=== PATIENT | female | born 1940 | race Caucasian/White ===

== ENCOUNTER → 2016-04-29 | Outpatient (REF) | payer MEDICARE ==
[2016-04-29 18:03] LABS: ALBUMIN 3.6 GM/DL (3.2-5.2); ALBUMIN/GLOBULIN RATIO 1.03 (1.00-1.93); ALKALINE PHOSPHATASE 93 U/L (45-117); ALT/SGPT 28 U/L (12-78); ANION GAP 7 MEQ/L (8-16); AST/SGOT 18 U/L (15-37); BILIRUBIN,TOTAL 0.4 MG/DL (0.2-1.0); BLOOD UREA NITROGEN 16 MG/DL (7-18); CALCIUM LEVEL 8.7 MG/DL (8.8-10.2); CARBON DIOXIDE LEVEL 27 MEQ/L (21-32); CHLORIDE LEVEL 106 MEQ/L (98-107); GLOMERULAR FILTRATION RATE > 60.0 (>39); GLUCOSE, FASTING 105 MG/DL (83-110); POTASSIUM SERUM 4.5 MEQ/L (3.5-5.1); SODIUM LEVEL 140 MEQ/L (136-145); TOTAL PROTEIN 7.1 GM/DL (6.4-8.2)
== END ==
LOC: M SFHCPLAZ 14:44
PROVIDERS: ATTEND Nurse Practitioner Family
DX: R60.0 Localized edema (principal); E55.9 Vitamin D deficiency, unspecified

== ENCOUNTER → 2016-10-13 | Outpatient (REF) | payer MEDICARE ==
[2016-10-13 16:35] LABS: ALBUMIN 3.5 GM/DL (3.2-5.2); ALBUMIN/GLOBULIN RATIO 0.92 (1.00-1.93); ALKALINE PHOSPHATASE 84 U/L (45-117); ALT/SGPT 29 U/L (12-78); ANION GAP 8 MEQ/L (8-16); AST/SGOT 18 U/L (15-37); BILIRUBIN,TOTAL 0.5 MG/DL (0.2-1.0); BLOOD UREA NITROGEN 14 MG/DL (7-18); CALCIUM LEVEL 8.9 MG/DL (8.8-10.2); CARBON DIOXIDE LEVEL 27 MEQ/L (21-32); CHLORIDE LEVEL 106 MEQ/L (98-107); CHOLESTEROL LEVEL 242 MG/DL (<200); CREATININE FOR GFR 0.88 MG/DL (0.55-1.02); GLOMERULAR FILTRATION RATE > 60.0 (>39); GLUCOSE, FASTING 88 MG/DL (83-110); POTASSIUM SERUM 4.4 MEQ/L (3.5-5.1); SODIUM LEVEL 141 MEQ/L (136-145); TOTAL PROTEIN 7.3 GM/DL (6.4-8.2); TRIGLYCERIDES LEVEL 278 MG/DL (<150)
== END ==
LOC: M SFHCPLAZ 12:55
PROVIDERS: ATTEND Nurse Practitioner Family
DX: E78.5 Hyperlipidemia, unspecified (principal); E55.9 Vitamin D deficiency, unspecified

== ENCOUNTER → 2017-05-05 | Outpatient (REF) | payer MEDICARE ==
[2017-05-05 16:03] LABS: ALBUMIN 3.7 GM/DL (3.2-5.2); ALKALINE PHOSPHATASE 85 U/L (45-117); ALT/SGPT 28 U/L (12-78); ANION GAP 6 MEQ/L (8-16); AST/SGOT 20 U/L (7-37); BILIRUBIN,TOTAL 0.5 MG/DL (0.2-1.0); BLOOD UREA NITROGEN 16 MG/DL (7-18); CALCIUM LEVEL 8.8 MG/DL (8.8-10.2); CARBON DIOXIDE LEVEL 28 MEQ/L (21-32); CHLORIDE LEVEL 108 MEQ/L (98-107); CHOLESTEROL LEVEL 249 MG/DL (<200); CHOLESTEROL RISK RATIO 5.659 (<5); CREATININE FOR GFR 0.92 MG/DL (0.55-1.30); GLOMERULAR FILTRATION RATE > 60.0 (>39); GLUCOSE, FASTING 92 MG/DL (70-100); HDL CHOLESTEROL 44 MG/DL (>40); LDL CHOLESTEROL 151.4 MG/DL (<100); NON-HDL-C 205 MG/DL; POTASSIUM SERUM 4.4 MEQ/L (3.5-5.1); SODIUM LEVEL 142 MEQ/L (136-145); TOTAL PROTEIN 7.4 GM/DL (6.4-8.2); TRIGLYCERIDES LEVEL 268 MG/DL (<150)
[2017-05-05 16:08] LABS: TOTAL 25(OH) VITAMIN D 40.4 NG/ML (30.0-100.0)
== END ==
LOC: M SFHCPLAZ 12:59
DX: E78.5 Hyperlipidemia, unspecified (principal); E55.9 Vitamin D deficiency, unspecified
CPT/HCPCS: 80053

== ENCOUNTER → 2018-05-09 | Outpatient (REF) | payer MEDICARE ==
[2018-05-09 17:48] LABS: ALBUMIN 3.8 GM/DL (3.2-5.2); ALT/SGPT 29 U/L (12-78); BILIRUBIN,TOTAL 0.6 MG/DL (0.2-1.0); BLOOD UREA NITROGEN 16 MG/DL (7-18); CALCIUM LEVEL 8.7 MG/DL (8.8-10.2); CARBON DIOXIDE LEVEL 27 MEQ/L (21-32); CHLORIDE LEVEL 106 MEQ/L (98-107); CHOLESTEROL LEVEL 244 MG/DL (<200); CHOLESTEROL RISK RATIO 5.304 (<5); CREATININE FOR GFR 0.93 MG/DL (0.55-1.30); FREE T4 0.86 NG/DL (0.76-1.46); GLOMERULAR FILTRATION RATE > 60.0 (>39); GLUCOSE, FASTING 84 MG/DL (70-100); HDL CHOLESTEROL 46 MG/DL (>40); LDL CHOLESTEROL 142 MG/DL (<100); NON-HDL-C 198 MG/DL; POTASSIUM SERUM 4.4 MEQ/L (3.5-5.1); SODIUM LEVEL 139 MEQ/L (136-145); TOTAL PROTEIN 7.3 GM/DL (6.4-8.2); TRIGLYCERIDES LEVEL 282 MG/DL (<150)
[2018-05-09 17:51] LABS: TOTAL 25(OH) VITAMIN D 34.5 NG/ML (30.0-100.0)
== END ==
LOC: M SFHCPLAZ 14:24
PROVIDERS: ATTEND Nurse Practitioner Family
DX: G83.89 Other specified paralytic syndromes (principal); F41.9 Anxiety disorder, unspecified; E78.5 Hyperlipidemia, unspecified; E55.9 Vitamin D deficiency, unspecified

== ENCOUNTER → 2019-07-19 | Outpatient (REF) | payer MEDICARE ==
[2019-07-19 18:17] LABS: ALBUMIN 3.4 GM/DL (3.2-5.2); ALT/SGPT 31 U/L (12-78); BILIRUBIN,TOTAL 0.5 MG/DL (0.2-1.0); BLOOD UREA NITROGEN 19 MG/DL (7-18); CALCIUM LEVEL 8.6 MG/DL (8.8-10.2); CARBON DIOXIDE LEVEL 29 MEQ/L (21-32); CHLORIDE LEVEL 104 MEQ/L (98-107); CHOLESTEROL LEVEL 184 MG/DL (<200); CREATININE FOR GFR 0.83 MG/DL (0.55-1.30); GLOMERULAR FILTRATION RATE > 60.0 (>39); GLUCOSE, FASTING 73 MG/DL (70-100); HDL CHOLESTEROL 42 MG/DL (>40); LDL CHOLESTEROL 101 MG/DL (<100); NON-HDL-C 142 MG/DL; NT-PRO BNP 56 PG/ML (<450); POTASSIUM SERUM 4.3 MEQ/L (3.5-5.1); SODIUM LEVEL 140 MEQ/L (136-145); TOTAL PROTEIN 7.2 GM/DL (6.4-8.2); TRIGLYCERIDES LEVEL 206 MG/DL (<150)
[2019-07-19 18:25] LABS: TOTAL 25(OH) VITAMIN D 44.6 NG/ML (30.0-100.0)
== END ==
LOC: M SHH 17:10
PROVIDERS: ATTEND Nurse Practitioner Family
DX: E55.9 Vitamin D deficiency, unspecified (principal); E78.5 Hyperlipidemia, unspecified; R06.02 Shortness of breath

== ENCOUNTER → 2019-09-19 | Outpatient (REF) | payer MEDICARE ==
[2019-11-18 06:53] LABS: CALCIUM LEVEL 8.7 MG/DL (8.8-10.2); CREATININE FOR GFR 0.96 MG/DL (0.55-1.30); MAGNESIUM LEVEL 2.2 MG/DL (1.8-2.4); POTASSIUM SERUM 3.8 MEQ/L (3.5-5.1)
== END ==
LOC: M SHH 16:18
PROVIDERS: ATTEND Nurse Practitioner Family
DX: R60.0 Localized edema (principal)

== ENCOUNTER → 2020-01-18 | Outpatient (REF) | payer MEDICARE ==
[2020-01-18 18:30] LABS: HEMOGLOBIN A1c 5.5 %
[2020-01-18 18:45] LABS: ALBUMIN 3.7 GM/DL (3.2-5.2); ALT/SGPT 25 U/L (12-78); BILIRUBIN,TOTAL 0.6 MG/DL (0.2-1.0); BLOOD UREA NITROGEN 15 MG/DL (7-18); CALCIUM LEVEL 9.7 MG/DL (8.8-10.2); CARBON DIOXIDE LEVEL 29 MEQ/L (21-32); CHLORIDE LEVEL 106 MEQ/L (98-107); FREE T4 0.86 NG/DL (0.76-1.46); GLOMERULAR FILTRATION RATE > 60.0 (>39); GLUCOSE, FASTING 101 MG/DL (70-100); MAGNESIUM LEVEL 2.4 MG/DL (1.8-2.4); POTASSIUM SERUM 4.4 MEQ/L (3.5-5.1); SODIUM LEVEL 139 MEQ/L (136-145); TOTAL PROTEIN 7.7 GM/DL (6.4-8.2)
== END ==
LOC: M PLALAB 14:45
PROVIDERS: ATTEND Nurse Practitioner Family
DX: R60.0 Localized edema (principal); R73.09 Other abnormal glucose; K21.00 Gastro-esophageal reflux disease with esophagitis, without bleeding

== ENCOUNTER → 2020-04-04 | Outpatient (REF) | payer MEDICARE ==
[2020-04-04 16:46] LABS: HEMATOCRIT 43.7 % (36.0-47.0); HEMOGLOBIN 13.8 g/dl (12.0-15.5); MEAN CORPUSCULAR HEMOGLOBIN 30.3 pg (27.0-33.0); MEAN CORPUSCULAR HGB CONC 31.6 g/dl (32.0-36.5); PLATELET COUNT, AUTOMATED 181 10^3/uL (150-450); RED BLOOD COUNT 4.55 10^6/uL (4.00-5.40); WHITE BLOOD COUNT 5.9 10^3/uL (4.0-10.0)
[2020-04-04 17:14] LABS: ALBUMIN 3.6 GM/DL (3.2-5.2); ALT/SGPT 21 U/L (12-78); BILIRUBIN,TOTAL 0.6 MG/DL (0.2-1.0); BLOOD UREA NITROGEN 17 MG/DL (7-18); CALCIUM LEVEL 9.3 MG/DL (8.8-10.2); CARBON DIOXIDE LEVEL 29 MEQ/L (21-32); CHLORIDE LEVEL 104 MEQ/L (98-107); CHOLESTEROL LEVEL 226 MG/DL (<200); CHOLESTEROL RISK RATIO 4.913 (<5); CREATININE FOR GFR 0.81 MG/DL (0.55-1.30); FREE T4 0.87 NG/DL (0.76-1.46); GLOMERULAR FILTRATION RATE > 60.0 (>39); GLUCOSE, FASTING 95 MG/DL (70-100); HDL CHOLESTEROL 46 MG/DL (>40); LDL CHOLESTEROL 126 MG/DL (<100); NON-HDL-C 180 MG/DL; POTASSIUM SERUM 4.2 MEQ/L (3.5-5.1); SODIUM LEVEL 137 MEQ/L (136-145); TOTAL PROTEIN 7.4 GM/DL (6.4-8.2); TRIGLYCERIDES LEVEL 271 MG/DL (<150)
[2020-04-04 17:15] LABS: TOTAL 25(OH) VITAMIN D 33.6 NG/ML (30.0-100.0)
== END ==
LOC: M SFHCADAM 14:31
PROVIDERS: ATTEND Family Medicine
DX: L89.310 Pressure ulcer of right buttock, unstageable (principal); K22.70 Barrett's esophagus without dysplasia; E78.5 Hyperlipidemia, unspecified; E55.9 Vitamin D deficiency, unspecified

== ENCOUNTER 2021-01-02 13:10 | Outpatient (CLI) | payer MEDICARE ==
[~2021-01-02] VITALS: Ht 170.2 cm; Wt 104.3 kg
[~2021-01-02 13:10] MED LIST: ALBUTEROL 90 MCG/ACT 8GM HFA INHALER INH PRN; ALBUTEROL SULFATE 2.5 MG/0.5 ML INH NEB SOLN INH PRN; EPINEPHrine INJ 1 MG/ML 1ML AMP IM PRN; NS 1,000 ML IV SCH; diphenhydrAMINE 50MG/ML VIAL (J1200) IV PRN; methylPREDNISolone 125MG 2ML VIAL IV PRN
[2021-01-02] MEDS ORDERED: CASIRIVIMAB (REGN10933) 600 MG, IMDEVIMAB (REGN10987) 600 MG in NS 250 ML IV ONE (14:00)
[2021-01-02 14:25] VITALS: BP 115/64
[2021-01-02 14:55] VITALS: BP 132/70
[2021-01-02 15:25] VITALS: BP 129/70
[2021-01-02 16:25] VITALS: BP 148/75
[2021-01-08] MEDS ORDERED: OMEP-173 PO (12:24)
[2021-01-27] MEDS ORDERED: OMEP-173 PO (11:29)
== END 2021-01-02 16:25 | disposition home or self-care (01) ==
LOC: M OPCLI4PR 13:10
PROVIDERS: ATTEND Family Medicine
DX: U07.1 COVID-19 (principal)

== ENCOUNTER 2021-01-08 11:42 | Inpatient (IN) | payer MEDICARE ==
[~2021-01-08] VITALS: Ht 170.2 cm; Wt 97.5 kg
[2021-01-08] MEDS ORDERED: TIZA2TA PO (12:23)
[2021-01-08] MEDS ORDERED: CICL0.7739 TOP (12:23)
[2021-01-08] MEDS ORDERED: GABA-282 PO (12:24)
[2021-01-08] MEDS ORDERED: OMEP-218 PO (12:24)
[2021-01-08] MEDS ORDERED: FURO20TA2 PO (12:24)
--- OUTSIDE RECORDS SUMMARY | 2021-01-08 13:00 | CCD ---
Author Author [facility] Organization [facility] Address Unknown Phone Unavailable Care Team Providers Care Supervisor Inspection Room Name Role Phone Geo Irby Unavailable PROBLEMS Type Condition ICD9-CM Code [id number] Code Onset Dates Condition S tatus W/U Status Risk SNOMED Code Notes Problem Vitamin D deficiency E55.9 Active confirmed 81965536 Problem Dyslipidemia E78.5 Active confirmed 8283957 07 Problem Gastroesophageal reflux disease with esophagitis K 21.0 Active confirmed 179532120 Problem Bilateral leg edema R60.0 Active confirmed 783071929 Problem Left hip pain M25.552 Active confirmed 65536 002 Problem Acute left-sided low back pain with left-sided sciatica M54.42 Active confirmed 199490073 Problem Intertriginous candidiasis B37.2 Active confirmed 812925360 Problem Anxiety F41.9 Active confirmed 77074523 Problem Medicare annual wellness visit, subsequent Z00.00 Active confirmed 030681704 Problem Pressure sore on buttocks, right, unstageable L89. 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 Active confirmed 125386706 Problem Non-pressure chronic ulcer o f unspecified part of left lower leg with unspecified severity L97.929 Active confirmed 05509560 Problem 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 Active confirmed 33012402318710324 Problem Chronic venous hypertension (idiopathic) with ulcer of left lower extremity I87.312 Active confirmed [id number] ALLERGIES Allergen (clinical drug ingredient) Drug/Non Drug Allergy do cumented on EMR Reaction Allergy Type Onset Date Status fenofibrate Fenoglide([facility] Code:[address]-75) muscle aches Drug Aller gy Active atorvastatin Lipitor(ND Code:[address]-94) muscle aches Drug Allerg y Active ENCOUNTERS from 1940 to 2020-12-31 Encounter Location Date Provider Diagnosis [address] [facility] [phone] [place] [address] Dec, Geo Irby IMMUNIZATIONS Vaccine Route Administration Date Status Influenza Denied Unknown May 16, 2018 Others Influenza (High Dose 65 & up) Unknown May 10, 2017 Ot hers Influenza (High Dose 65 & up) Unknown Mar 11, 2016 Re fused Zoster 0.65mL Zostavax Unknown Dec 05, 2013 Administe red Pneumococcal Adult 0.5mL Pneumovax 23 IM Intramuscular Nov 09 017 Administered Pneumococcal 0.5mL Prevnar 13 IM Intramuscular Oct 31, 2015 A dministered SOCIAL HISTORY Tobacco Use: Social History Observation Description Date Details (start date - stop date) Former Smoker Sex Assigned At : Social History Observation Description Sex Assigned At Unknown Audit Question Answer Notes Total Score: 0 Interpretation: Alcohol Education Language: Question Answer Notes Languages spoken: Lao Denominational: Question Answer Notes Denominational 33 None Drug and Alcohol Question Answer Notes Total Score: 0 Interpretation: No problems reported BMI Care Goal Follow-Up Question Answer Notes Above Normal BMI Follow-Up Giving encouragement to exercise Tobacco Use: Question Answer Notes Are you a: former smoker How long has it been since you last smoked? > 10 years quit at age 41 REASON FOR REFERRAL No Information VITAL SIGNS No information MEDICATIONS Medication SIG (Take, Route, Frequency, Duration) Notes Start Da te End Date Status Furosemide 20 MG TAKE 2 TABLETS BY MOUTH IN THE MORNING Active Optifoam _ as directed 2x2 pads Dx: L89.151 for 30 Days Jul, Active Omeprazole 20 MG 1 tablet Orally Once a day for 30 Days Active Wheelchair _ as directed DX: G83.89 Daily for 99 months Active Vitamin C 1000 MG 1 tablet Orally Once a day Active May Have - as directed equipment evaluation as directed l89 .151 for 99 days Sep, Active tiZANidine HCl 2 MG 1 tablet as needed Orally ev chuy 8 hours as needed for muscle spasms for 30 Days Active Ibuprofen 200 MG 1 tablet as needed Orally every 6 hrs Active Co Q-10 200 MG as directed Orally Ac tive Gauze Sponge 4"X4" as directed weekly as needed for 30 Days Mar, Active Commode Bedside 1 1 commode ` Use as needed for ` Active Calcium 600 + D 600-400 MG-UNIT 1 tablet Orally Once a day Active Gabapentin 300 MG 1 capsule Orally two times daily Active Garlic OTC 2 tablets Orally Once a day Active Loprox 0.77 % 1 application Externally Twice a day for 30 Days Mar, Active May Have - as directed michelle coleman L89.151 for 99 days Sep, Active Vitamin D3 1000 UNIT 2 tabs with meal Orally Once a day Active Egg Crate Bed Pad - as directed _ Dx: G83.89, M54.42 for 99 days Jul, Active Escitalopram Oxalate 10 MG Take 1 tablet by mouth once daily for 90 Active [place] 3 1200 MG 1 cap Orally Once a day Active Normal Saline Flush 0.9 % bottle topically once a week as needed for 30 Days Mar, Active Optifoam 4"X4" as directed once a week and as needed for 30 Days Mar, Active [place] OTC 1 capsule Orally Once a day Active COMPRESSION STOCKINGS 15-20 mmHg DIRECTED knee high daily for 30 d ays Active PROCEDURES No Information RESULTS No Results REASON FOR VISIT antibody infusion MEDICAL (GENERAL) HISTORY Type Description Date Medical History hypertension - resolved Medical History Jani's esophagus without d ysplasia, f/up neg for Barretts, + for esophagitis, Dr Melly Falcon Medical History Chronic progressive degenera tive spastic paraparesis, idiopathic - diagnosed 1984 (multiple specialists and tests without clear etiolgy) Medical History Hyperlipidemia Medical History Vitamin D Deficiency Medical History pressure sores buttocks, seen by wound c enter Surgical History tubal ligation Surgical History D&C Surgical History upper endoscopy with esophag itis, most recent was negative for Barretts 2017 (Dr Kristin Melo) , 03/23, 07/21; 11/24 Surgical History colonoscopy 2006 Surgical History Colonoscopy, Dr. Melly Melo 3 Goals Section No Information Health Concerns No Information MEDICAL EQUIPMENT No Information MENTAL STATUS No Information FUNCTIONAL STATUS No Information ASSESSMENTS No Information PLAN OF TREATMENT Medication Medication Name Sig Start Date Stop Date tiZANidine HCl 2 MG 1 tablet as needed Orally ev chuy 8 hours as needed for muscle spasms for 30 Days Furosemide 20 MG TAKE 2 TABLETS BY MOUTH IN THE MORNING Next Appt Details Provider Name:Geo Irby, 2021-04 03:15:00 PM, [address], , [place], [address], Insurance Providers Payer Name Payer Address Payer Phone Insured Name Patient Relati onship to Insured Coverage Start Date Coverage End Date [facility]IC[facility]UE [facility] [address] [address] JODI ZAMAN self
--- OUTSIDE RECORDS SUMMARY | 2021-01-08 13:00 | CCD ---
Author Author [facility] Organization [facility] Address Unknown Phone Unavailable Care Team Providers Care Hot Dip Plating Supervisor Name Role Phone Geo Irby Unavailable PROBLEMS Type Condition ICD9-CM Code [id number] Code Onset Dates Condition S tatus W/U Status Risk SNOMED Code Notes Problem Vitamin D deficiency E55.9 Active confirmed 44429734 Problem Dyslipidemia E78.5 Active confirmed 9403500 07 Problem Gastroesophageal reflux disease with esophagitis K 21.0 Active confirmed 801623244 Problem Bilateral leg edema R60.0 Active confirmed 676954678 Problem Left hip pain M25.552 Active confirmed 63870 002 Problem Acute left-sided low back pain with left-sided sciatica M54.42 Active confirmed 713791608 Problem Intertriginous candidiasis B37.2 Active confirmed 546838801 Problem Anxiety F41.9 Active confirmed 04591197 Problem Medicare annual wellness visit, subsequent Z00.00 Active confirmed 871722139 Problem Pressure sore on buttocks, right, unstageable L89. 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 Active confirmed 649640638 Problem Non-pressure chronic ulcer o f unspecified part of left lower leg with unspecified severity L97.929 Active confirmed 43291996 Problem 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 Active confirmed 68399631815390831 Problem Chronic venous hypertension (idiopathic) with ulcer of left lower extremity I87.312 Active confirmed 595560642992379 ALLERGIES Allergen (clinical drug ingredient) Drug/Non Drug Allergy do cumented on EMR Reaction Allergy Type Onset Date Status fenofibrate Fenoglide([facility] Code:[address]-04) muscle aches Drug Aller gy Active atorvastatin Lipitor(ND Code:[address]-11) muscle aches Drug Allerg y Active ENCOUNTERS from 1940 to 2020-12-31 Encounter Location Date Provider Diagnosis [facility] [address] [place] [phone] Dec, Geo Irby IMMUNIZATIONS Vaccine Route Administration [...] Education Language: Question Answer Notes Languages spoken: Italian Yazdanism: Question Answer Notes Yazdanism 33 None Drug and Alcohol Question Answer [...] by mouth once daily for 90 Active [place] 3 1200 MG 1 cap Orally Once a day Active Normal Saline Flush 0.9 % bottle topically once a week as needed for 30 Days Mar, Active Optifoam 4"X4" as directed once a week and as needed for 30 Days Mar, Active [place] OTC 1 capsule Orally Once a day Active COMPRESSION STOCKINGS 15-20 mmHg DIRECTED knee high daily for 30 d ays Active PROCEDURES No Information RESULTS No Results REASON FOR VISIT Covid Test MEDICAL (GENERAL) HISTORY Type Description Date Medical [...] Details Provider Name:Geo Irby, 2021-04 03:15:00 PM, [address], , [place], [address], Insurance Providers Payer Name Payer Address Payer Phone Insured Name Patient Relati onship to Insured Coverage Start Date Coverage End Date MEDICARE BLUE PPO [address] [employer] BLUE [address] [facility] [address] JODI ZAMAN self
--- OUTSIDE RECORDS SUMMARY | 2021-01-08 13:00 | CCD ---
Author Author [facility] Organization [facility] Address Unknown Phone Unavailable Care Team Providers Care Licensed Marine Engineer Name Role Phone Yue Glasgow Unavailable PROBLEMS Type Condition ICD9-CM Code [id number] Code Onset Dates Condition S tatus W/U Status Risk SNOMED Code Notes Problem Vitamin D deficiency E55.9 Active confirmed 05655490 Problem Dyslipidemia E78.5 Active confirmed 1531340 07 Problem Gastroesophageal reflux disease with esophagitis K 21.0 Active confirmed 740683583 Problem Bilateral leg edema R60.0 Active confirmed 898387250 Problem Left hip pain M25.552 Active confirmed 41861 002 Problem Acute left-sided low back pain with left-sided sciatica M54.42 Active confirmed 787855800 Problem Intertriginous candidiasis B37.2 Active confirmed 117591068 Problem Anxiety F41.9 Active confirmed 57188932 Problem Medicare annual wellness visit, subsequent Z00.00 Active confirmed 362817069 Problem Pressure sore on buttocks, right, unstageable L89. 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 Active confirmed 716120033 Problem Non-pressure chronic ulcer o f unspecified part of left lower leg with unspecified severity L97.929 Active confirmed 29026544 Problem 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 Active confirmed 16968703641585602 Problem Chronic venous hypertension (idiopathic) with ulcer of left lower extremity I87.312 Active confirmed 821595854200052 ALLERGIES Allergen (clinical drug ingredient) Drug/Non Drug Allergy do cumented on EMR Reaction Allergy Type Onset Date Status fenofibrate Fenoglide([facility] Code:[address]-10) muscle aches Drug Aller gy Active atorvastatin Lipitor(ND Code:[address]-09) muscle aches Drug Allerg y Active ENCOUNTERS from 1940 to 2020-12-31 Encounter Location Date Provider Diagnosis [place] [facility] [phone] [place] [address] Dec, Yue Emi-Tartell IMMUNIZATIONS Vaccine Route Administration Date Status Influenza [...] Education Language: Question Answer Notes Languages spoken: Turkmen Jain: Question Answer Notes Jain 33 None Drug and Alcohol Question Answer [...] by mouth once daily for 90 Active [place] 3 1200 MG 1 cap Orally Once a day Active Normal Saline Flush 0.9 % bottle topically once a week as needed for 30 Days Mar, Active Optifoam 4"X4" as directed once a week and as needed for 30 Days Mar, Active [place] OTC 1 capsule Orally Once a day Active COMPRESSION STOCKINGS 15-20 mmHg DIRECTED knee high daily for 30 d ays Active PROCEDURES No Information RESULTS No Results REASON FOR VISIT Infusion question MEDICAL (GENERAL) HISTORY Type Description Date Medical [...] THE MORNING Next Appt Details Provider Name:Geo Joelsilvina, 2021-04 03:15:00 PM, [address], , [place], [address], Insurance Providers Payer Name Payer Address Payer Phone Insured Name Patient Relati onship to Insured Coverage Start Date Coverage End Date MEDICARE BLUE PPO [address] [facility] [address] [address] JODI ZAMAN self
--- OUTSIDE RECORDS SUMMARY | 2021-01-08 13:00 | CCD ---
Author Author [facility] Organization [facility] Address Unknown Phone Unavailable Care Team Providers Care Sales And Marketing Assistant Name Role Phone Geo Irby Unavailable PROBLEMS Type Condition ICD9-CM Code [id number] Code Onset Dates Condition S tatus W/U Status Risk SNOMED Code Notes Problem Vitamin D deficiency E55.9 Active confirmed 56411651 Problem Dyslipidemia E78.5 Active confirmed 2462547 07 Problem Gastroesophageal reflux disease with esophagitis K 21.0 Active confirmed 734821651 Problem Bilateral leg edema R60.0 Active confirmed 372412101 Problem Left hip pain M25.552 Active confirmed 09387 002 Problem Acute left-sided low back pain with left-sided sciatica M54.42 Active confirmed 937886202 Problem Intertriginous candidiasis B37.2 Active confirmed 522113042 Problem Anxiety F41.9 Active confirmed 22298805 Problem Medicare annual wellness visit, subsequent Z00.00 Active confirmed 331652992 Problem Pressure sore on buttocks, right, unstageable L89. 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 Active confirmed 411394455 Problem Non-pressure chronic ulcer o f unspecified part of left lower leg with unspecified severity L97.929 Active confirmed 66938860 Problem 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 Active confirmed 32377749665407284 Problem Chronic venous hypertension (idiopathic) with ulcer of left lower extremity I87.312 Active confirmed 893278767535401 ALLERGIES Allergen (clinical drug ingredient) Drug/Non Drug Allergy do cumented on EMR Reaction Allergy Type Onset Date Status fenofibrate Fenoglide([facility] Code:[address]-66) muscle aches Drug Aller gy Active atorvastatin Lipitor(ND Code:[address]-48) muscle aches Drug Allerg y Active ENCOUNTERS from 1940 to 2020-12-27 Encounter Location Date Provider Diagnosis [facility] [address] [place] [phone] Dec, 2020 Geo Irby IMMUNIZATIONS Vaccine Route Administration Date [...] Education Language: Question Answer Notes Languages spoken: Icelandic Druze: Question Answer Notes Druze 33 None Drug and Alcohol Question Answer [...] by mouth once daily for 90 Active [place] 3 1200 MG 1 cap Orally Once a day Active Normal Saline Flush 0.9 % bottle topically once a week as needed for 30 Days Mar, Active Optifoam 4"X4" as directed once a week and as needed for 30 Days Mar, Active [place] OTC 1 capsule Orally Once a day Active COMPRESSION STOCKINGS 15-20 mmHg DIRECTED knee high daily for 30 d ays Active PROCEDURES No Information RESULTS No Results REASON FOR VISIT PMD & Practioner paperwork MEDICAL (GENERAL) HISTORY Type Description Date Medical [...] itis, most recent was negative for Barretts 2018 (Dr Kristin Melo) , 03/23, 07/21; 11/24 [...] Details Provider Name:Geo Joelsilvina, 2021-04 03:15:00 PM, [address], , [place], [address], Insurance Providers Payer Name Payer Address Payer Phone Insured Name Patient Relati onship to Insured Coverage Start Date Coverage End Date MEDICARE BLUE PPO [address] [facility] BLUE [address] [address] JODI ZAMAN
--- OUTSIDE RECORDS SUMMARY | 2021-01-08 13:00 | CCD | Continuity of Care Document ---
Author Author Marcie RUSSELL Organization Unknown Address [address] [place] [address] Phone [phone] Care Team Providers Care Exhaust And Muffler Fitter Name Role Phone Geo Irby MD [facility] [phone] Problems Description No Information Available Social History Type Date Description Comments Sex Unknown Allergies and adverse reactions Description No Information Available Medications Description No Information Available Immunizations Description No Information Available Vital Signs Description No Information Available Results Description No Information Available Procedures Description No Information Available Medical Devices Description No Information Available Encounters Description No Information Available Assessments Date Code Description Provider 12/31/2020 U07.1 Covid-19 Katelyn Aguirre Plan of Treatment No Information Available Functional Status Description No Information Available Mental Status Description No Information Available Referrals Description No Information Available
--- OUTSIDE RECORDS SUMMARY | 2021-01-08 13:00 | CCD | Continuity of Care Document ---
Author Author Marcie RUSSELL Organization Unknown Address [address] [place] [address] Phone [phone] Care Team Providers Care Altitude Chamber Technician Name Role Phone Geo Irby MD [facility] [phone] Problems Description No Information Available Social History Type Date Description Comments Sex Unknown Allergies and adverse reactions Description No Information Available Medications Description No Information Available Immunizations Description No Information Available Vital Signs Description No Information Available Results Description No Information Available Procedures Description No Information Available Medical Devices Description No Information Available Encounters Description No Information Available Assessments Description No Information Available Plan of Treatment No Information Available Functional Status Description No Information Available Mental Status Description No Information Available Referrals Description No Information Available
--- OUTSIDE RECORDS SUMMARY | 2021-01-08 13:00 | CCD ---
Author Author [facility] Organization [facility] Address Unknown Phone Unavailable Care Team Providers Care Furniture Removalist Name Role Phone Geo Irby Unavailable PROBLEMS Type Condition ICD9-CM Code [id number] Code Onset Dates Condition S tatus W/U Status Risk SNOMED Code Notes Problem Vitamin D deficiency E55.9 Active confirmed 36028249 Problem Dyslipidemia E78.5 Active confirmed 0230616 07 Problem Gastroesophageal reflux disease with esophagitis K 21.0 Active confirmed 266969192 Problem Bilateral leg edema R60.0 Active confirmed 487449420 Problem Left hip pain M25.552 Active confirmed 01174 002 Problem Acute left-sided low back pain with left-sided sciatica M54.42 Active confirmed 801481242 Problem Intertriginous candidiasis B37.2 Active confirmed 946774439 Problem Anxiety F41.9 Active confirmed 52729519 Problem Medicare annual wellness visit, subsequent Z00.00 Active confirmed 063845504 Problem Pressure sore on buttocks, right, unstageable L89. 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 Active confirmed 879745983 Problem Non-pressure chronic ulcer o f unspecified part of left lower leg with unspecified severity L97.929 Active confirmed 12871270 Problem 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 Active confirmed 46721053902415576 Problem Chronic venous hypertension (idiopathic) with ulcer of left lower extremity I87.312 Active confirmed [id number] ALLERGIES Allergen (clinical drug ingredient) Drug/Non Drug Allergy do cumented on EMR Reaction Allergy Type Onset Date Status fenofibrate Fenoglide([facility] Code:[address]-22) muscle aches Drug Aller gy Active atorvastatin Lipitor(ND Code:[address]-18) muscle aches Drug Allerg y Active ENCOUNTERS from 1940 to 2021-01-07 Encounter Location Date Provider Diagnosis [facility] [address] [place] [id number] Dec, Geo Irby IMMUNIZATIONS Vaccine Route [...] Education Language: Question Answer Notes Languages spoken: Kiswahili Mu-Ism: Question Answer Notes Mu-Ism 33 None Drug and Alcohol Question Answer [...] by mouth once daily for 90 Active [place] 3 1200 MG 1 cap Orally Once a day Active Normal Saline Flush 0.9 % bottle topically once a week as needed for 30 Days Mar, Active Optifoam 4"X4" as directed once a week and as needed for 30 Days Mar, Active [place] OTC 1 capsule Orally Once a day Active COMPRESSION STOCKINGS 15-20 mmHg DIRECTED knee high daily for 30 d ays Active PROCEDURES No Information RESULTS No Results REASON FOR VISIT referral for [facility] help MEDICAL (GENERAL) HISTORY Type Description Date Medical [...] Details Provider Name:Geo Irby, 2021-04 03:15:00 PM, [address], , [place], [address], Insurance Providers Payer Name Payer Address Payer Phone Insured Name Patient Relati onship to Insured Coverage Start Date Coverage End Date MEDICARE BLUE PPO [address] [facility] BLUE [address] [address] JODI ZAMAN
--- OUTSIDE RECORDS SUMMARY | 2021-01-08 13:01 | CCD ---
Author Author [facility] Organization [facility] Address Unknown Phone Unavailable Care Team Providers Care Compound Coating Machine Offbearer Name Role Phone Tobi Cuevas Unavailable PROBLEMS Type Condition ICD9-CM Code IZC50-HS Code Onset Dates Condition S tatus W/U Status Risk SNOMED Code Notes Problem Vitamin D deficiency E55.9 Active confirmed 80648812 Problem Dyslipidemia E78.5 Active confirmed 5881285 07 Problem Gastroesophageal reflux disease with esophagitis K 21.0 Active confirmed 478411067 Problem Bilateral leg edema R60.0 Active confirmed 538619473 Problem Left hip pain M25.552 Active confirmed 89163 002 Problem Acute left-sided low back pain with left-sided sciatica M54.42 Active confirmed 924343739 Problem Intertriginous candidiasis B37.2 Active confirmed 751247070 Problem Anxiety F41.9 Active confirmed 94841778 Problem Medicare annual wellness visit, subsequent Z00.00 Active confirmed 849768943 Problem Pressure sore on buttocks, right, unstageable L89. 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 Active confirmed 288085292 Problem Non-pressure chronic ulcer o f unspecified part of left lower leg with unspecified severity L97.929 Active confirmed 88503396 Problem 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 Active confirmed 80123414580837091 Problem Chronic venous hypertension (idiopathic) with ulcer of left lower extremity I87.312 Active confirmed 009278451342088 ALLERGIES Allergen (clinical drug ingredient) Drug/Non Drug Allergy do cumented on EMR Reaction Allergy Type Onset Date Status Fenoglide muscle aches Non Drug Allergy Active atorvastatin Lipitor([facility] Code:[address]-02) muscle aches Drug Allerg y Active ENCOUNTERS from 1942 to 2020-11-26 Encounter Location Date Provider Diagnosis [facility] [phone] [place] [address] Nov, Tobi Moiseserman Stasis dermatitis I87.2 and Pressure injury of coccygeal region, 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53 IMMUNIZATIONS Vaccine Route Administration Date Status Influenza [...] Education Language: Question Answer Notes Languages spoken: Belizean Jew: Question Answer Notes Jew 33 None Drug and Alcohol Question Answer Notes Total Score: 0 Interpretation: No problems reported BMI Care Goal Follow-Up Question Answer Notes Above Normal BMI Follow-Up Giving encouragement to exercise Tobacco Use: Question Answer Notes Are you a: former smoker How long has it been since you last smoked? > 10 years quit at age 41 REASON FOR REFERRAL No Information VITAL SIGNS Weight 235 lbs Nov, Height 67 in Nov, BMI 36.80 kg/m2 Nov, Heart Rate 74 /min Nov, Respiratory Rate 18 /min Nov, Temperature 98.0 degrees Fahrenheit 15 Nov, 2020 Oximetry 96 15 Nov, 2020 Blood pressure systolic 164 mm Hg Nov, Blood pressure diastolic 72 mm Hg Nov, MEDICATIONS Medication SIG (Take, Route, Frequency, Duration) Notes Start Da te End Date Status Ibuprofen 200 MG 1 tablet as needed Orally every 6 hrs Active Commode Bedside 1 1 commode ` Use as needed for ` Active Vitamin D3 1000 UNIT 2 tabs with meal Orally Once a day Active Co Q-10 200 MG as directed Orally Ac tive [place] 3 1200 MG 1 cap Orally Once a day Active Loprox 0.77 % 1 application Externally Twice a day for 30 Days Mar, Active Calcium 600 + D 600-400 MG-UNIT 1 tablet Orally Once a day Active Gauze Sponge 4"X4" as directed weekly as needed for 30 Days Mar, Active Egg Crate Bed Pad - as directed _ Dx: G83.89, M54.42 for 99 days Jul, Active Omeprazole 20 MG 1 tablet Orally Once a day for 30 Days Active Optifoam 4"X4" as directed once a week and as needed for 30 Days Mar, Active May Have - as directed roho cushion L89.151 for 99 days Sep, Active Furosemide 20 MG TAKE 2 TABLETS BY MOUTH IN T HE MORNING AND 1 TABLET IN THE AFTERNOON NEEDED for 90 Activ e Escitalopram Oxalate 10 MG Take 1 tablet by mouth once daily for 90 Active [place] OTC 1 capsule Orally Once a day Active Optifoam _ as directed 2x2 pads Dx: L89.151 for 30 Days Jul, Active Gabapentin 300 MG 1 capsule Orally two times daily Active Garlic OTC 2 tablets Orally Once a day Active Normal Saline Flush 0.9 % bottle topically once a week as needed for 30 Days Mar, Active Vitamin C 1000 MG 1 tablet Orally Once a day Active COMPRESSION STOCKINGS 15-20 mmHg DIRECTED knee high daily for 30 d ays Active May Have - as directed equipment evaluation as directed l89 .151 for 99 days Sep, Active tiZANidine HCl 2 MG 1 tablet as needed Orally ev chuy 8 hours as needed for muscle spasms Active Wheelchair _ as directed DX: G83.89 Daily for 99 months Active PROCEDURES No Information RESULTS No Results REASON FOR VISIT Coccyx and Left Ankle Wound MEDICAL (GENERAL) HISTORY Type Description Date Medical [...] was negative for Barretts 2017 (Dr Kristin eMlo) , 03/23, 07/21; 11/24 Surgical History colonoscopy 2006 Surgical History Colonoscopy, Dr. Melly Melo 3 Goals Section No Information Health Concerns No Information MEDICAL EQUIPMENT No Information MENTAL STATUS No Information FUNCTIONAL STATUS No Information ASSESSMENTS Encounter Date Diagnosis Assessment Notes Treatment Notes Treatm ent Clinical Notes Nov, Stasis dermatitis (ICD-10 - I87.2) I reviewed with the patient the signs and symptoms of a recurrent wound problem which would include drainage crusting redness pain tenderness excessive swelling or itching to the area. If any of these should present the patient should contact our wound care center for reevaluation and treatment. Nov, Pressure injury of coccygeal region, stage 3 (IC D-10 - L89.153) PLAN OF TREATMENT Treatment Notes Assessment Notes Clinical Notes Stasis dermatitis I reviewed with the patient the signs and symptoms of a recurrent wound problem which would include drainage crusting redness pain tenderness excessive swelling or itching to the area. If any of these should present the patient should contact our wound care center for reevaluation and treatment. Next Appt Details prn Reason: Provider Name:Geo Maldonadosilvina, 2021-04 03:15:00 PM, [address], , [place], [address], Insurance Providers Payer Name Payer Address Payer Phone Insured Name Patient Relati onship to Insured Coverage Start Date Coverage End Date MEDICARE BLUE PPO [address] [employer] [address] [place] [id number] JODI ZAMAN
--- OUTSIDE RECORDS SUMMARY | 2021-01-08 13:01 | CCD ---
Author Author [facility] Organization [facility] Address Unknown Phone Unavailable Care Team Providers Care Clothing Worker Name Role Phone Geo Irby Unavailable PROBLEMS Type Condition ICD9-CM Code LYK25-VF Code Onset Dates Condition S tatus W/U Status Risk SNOMED Code Notes Problem Vitamin D deficiency E55.9 Active confirmed 62972652 Problem Dyslipidemia E78.5 Active confirmed 6669506 07 Problem Gastroesophageal reflux disease with esophagitis K 21.0 Active confirmed 646885034 Problem Bilateral leg edema R60.0 Active confirmed 645899812 Problem Left hip pain M25.552 Active confirmed 59785 002 Problem Acute left-sided low back pain with left-sided sciatica M54.42 Active confirmed 177259808 Problem Intertriginous candidiasis B37.2 Active confirmed 960806711 Problem Anxiety F41.9 Active confirmed 29278342 Problem Medicare annual wellness visit, subsequent Z00.00 Active confirmed 690267441 Problem Pressure sore on buttocks, right, unstageable L89. 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 Active confirmed 844360588 Problem Non-pressure chronic ulcer o f unspecified part of left lower leg with unspecified severity L97.929 Active confirmed 27276065 Problem 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 Active confirmed 58201510150977396 Problem Chronic venous hypertension (idiopathic) with ulcer of left lower extremity I87.312 Active confirmed 303038937187988 ALLERGIES Allergen (clinical drug ingredient) Drug/Non Drug Allergy do cumented on EMR Reaction Allergy Type Onset Date Status fenofibrate Fenoglide([facility] Code:[address]-38) muscle aches Drug Aller gy Active atorvastatin Lipitor(ND Code:[address]-05) muscle aches Drug Allerg y Active ENCOUNTERS from 1942 to 2020-12-11 Encounter Location Date Provider Diagnosis [facility] [address] [place] [address] Nov, Geo Mahamed Bilateral leg edema R60.0 IMMUNIZATIONS Vaccine Route Administration Date Status Influenza [...] Education Language: Question Answer Notes Languages spoken: Occitan Jain: Question Answer Notes Jain 33 None [...] Notes Start Da te End Date Status Omeprazole 20 MG 1 tablet Orally Once a day for 30 Days Active Optifoam _ as directed 2x2 pads Dx: L89.151 for 30 Days Jul, Active COMPRESSION STOCKINGS 15-20 mmHg DIRECTED knee high daily for 30 d ays Active Wheelchair _ as directed DX: G83.89 Daily for 99 months Active Vitamin C 1000 MG 1 tablet Orally Once a day Active Egg Crate Bed Pad - as directed _ Dx: G83.89, M54.42 for 99 days Jul, Active Furosemide 20 MG TAKE 2 TABLETS BY MOUTH IN THE MORNING Active tiZANidine HCl 2 MG 1 tablet as needed Orally ev chuy 8 hours as needed for muscle spasms Active Co Q-10 200 MG as directed Orally Ac tive Gauze Sponge 4"X4" as directed weekly as needed for 30 Days Mar, Active Commode Bedside 1 1 commode ` Use as needed for ` Active Calcium 600 + D 600-400 MG-UNIT 1 tablet Orally Once a day Active Garlic OTC 2 tablets Orally Once a day Active May Have - as directed equipment evaluation as directed l89 .151 for 99 days Sep, Active Ibuprofen 200 MG 1 tablet as needed Orally every 6 hrs Active Escitalopram Oxalate 10 MG Take 1 tablet by mouth once daily for 90 Active Vitamin D3 1000 UNIT 2 tabs with meal Orally Once a day Active [place] OTC 1 capsule Orally Once a day Active Gabapentin 300 MG 1 capsule Orally two times daily Active [place] 3 1200 MG 1 cap Orally Once a day Active Normal Saline Flush 0.9 % bottle topically once a week as needed for 30 Days Mar, Active Optifoam 4"X4" as directed once a week and as needed for 30 Days Mar, Active Loprox 0.77 % 1 application Externally Twice a day for 30 Days Mar, Active May Have - as directed roho cushion L89.151 for 99 days Sep, Active PROCEDURES No Information RESULTS No Results REASON FOR VISIT discuss lasix MEDICAL (GENERAL) HISTORY Type Description Date Medical [...] Treatment Notes Treatm ent Clinical Notes Nov, Bilateral leg edema (ICD-10 - R60.0) PLAN OF TREATMENT Medication Medication Name Sig Start Date Stop Date Furosemide 20 MG TAKE 2 TABLETS BY MOUTH IN THE MORNING Next Appt Details prn Reason: Provider Name:Geo Irby, 2021-04 03:15:00 PM, [address], , [place], [address], Insurance Providers Payer Name Payer Address Payer Phone Insured Name Patient Relati onship to Insured Coverage Start Date Coverage End Date MEDICARE BLUE PPO [address] [facility] [id number] [address] JODI ZAMAN self
--- OUTSIDE RECORDS SUMMARY | 2021-01-08 13:01 | CCD | Continuity of Care Document ---
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) 13-Nov-2020 Status: Active Hyperlipidemia, uns pecified (E78.5) 13-Nov-2020 Status: Active Anxiety disorder, u nspecified (F41.9) 13-Nov-2020 Status: Active Vitamin D deficienc y, unspecified (E55.9) 13-Nov-2020 Status: Active 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 (K22.70) 13-Nov-2020 Status: Active 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) 13-Nov-2020 Status: Active Pressure ulcer of s acral region, stage 2 (L89.152) 13-Nov-2020 Status: Active Medications Name Dates Details Co-Enzyme Q10 200 MG Geo Irby Active Bacitracin 500 UNIT/GM apply under breasts Misael Irby Start : 19-Sep-2020 Active Turmeric Curcumin 500 MG Misael Irby Start : 19-Sep-2020 Active Tylenol 8 Hour Arthritis Pain 650 MG 1-2 tablets every 8 hours as needed for pain, max daily dose 4 tablets Misael Irby Start : 19-Sep-2020 Active tiZANidine HCl 2 MG 1 tablet every 8 hours as needed for muscle spasms Misael Irby Start : 19-Sep-2020 Active Gabapentin 300 MG Misael Irby Start : 19-Sep-2020 Active Escitalopram Oxalate 10 MG Misael Irby Start : 19-Sep-2020 Active Furosemide 20 MG Misael Irby Start : 19-Sep-2020 Active Vitamin D (Cholecalciferol) 1000 UNIT Misael Irby Start : 19-Sep-2020 Active Calcium 600+D 600-400 MG-UNIT Misael Irby Start : 19-Sep-2020 Active Omeprazole 20 MG Misael Irby Start : 19-Sep-2020 Active Garlic 1500 1500 MG Misael Irby Start : 19-Sep-2020 Active [place] Extract 250 MG Misael Irby Start : 19-Sep-2020 Active Vitamin C 1000 MG Misael Irby Start : 19-Sep-2020 Active Saline 3 1200 MG Misael Irby Start : 19-Sep-2020 Active Allergies and Adverse Reactions Name Dates Details loyda fenoglide (Allergy) Onset: Status: Active Results Date Description Value Details No Known Results Plan of Care Name Dates Details Instructions Diet:Regular Diet Ins truction Type: Nutrition education Payers * Amber BC/BS * [facility] Care
--- OUTSIDE RECORDS SUMMARY | 2021-01-08 13:01 | CCD | Continuity of Care Document ---
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) 19-Sep-2020 Status: Active Hyperlipidemia, uns pecified (E78.5) 19-Sep-2020 Status: Active Anxiety disorder, u nspecified (F41.9) 19-Sep-2020 Status: Active Vitamin D deficienc y, unspecified (E55.9) 19-Sep-2020 Status: Active 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 (K22.70) 19-Sep-2020 Status: Active 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) 19-Sep-2020 Status: Active Encounter for chavez e or removal of nonsurgical wound dressing (Z48.00) 19-Sep-2020 Status: Active Pressure ulcer of l eft buttock, stage 1 (L89.321) 19-Sep-2020 Status: Active Pressure ulcer of r ight buttock, stage 2 (L89.312) 19-Sep-2020 Status: Active Medications Name Dates Details Co-Enzyme Q10 200 MG Geo Irby Active Bacitracin 500 UNIT/GM apply under breasts Geo Irby* Start : 19-Sep-2020 Active Turmeric Curcumin 500 MG Geo Irby* Start : 19-Sep-2020 Active Tylenol 8 Hour [...] Start : 19-Sep-2020 Active Furosemide 20 MG Miasel Irby Start : 19-Sep-2020 Active Vitamin D (Cholecalciferol) 1000 UNIT Misael Irby Start : 19-Sep-2020 Active Calcium 600+D 600-400 MG-UNIT Misael Irby Start : 19-Sep-2020 Active Omeprazole 20 MG Misael Irby Start : 19-Sep-2020 Active Garlic 1500 1500 MG Misael Irby Start : 19-Sep-2020 Active [place] Extract 250 MG Misael Irby Start : 19-Sep-2020 Active Vitamin C 1000 MG Misael Irby Start : 19-Sep-2020 Active [place] 3 1200 MG Misael Irby Start : 19-Sep-2020 Active Allergies and Adverse Reactions Name Dates Details gordon scales (Allergy) Onset: Status: Active Results Date Description Value Details No Known Results Plan of Care Name Dates Details Instructions Diet:Regular Diet Ins truction Type: Nutrition education Payers * Amber BC/BS * [facility]
--- OUTSIDE RECORDS SUMMARY | 2021-01-08 13:01 | CCD ---
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 Ac tive confirmed 050059030 Problem Bilateral leg edema R60.0 Active confirmed 612184908 Problem Vitamin D deficiency E55.9 Active confirmed 73188936 Problem Acute left-sided low back pain with left-sided sciatica M54.42 Active confirmed 086032473 Problem Gastroesophageal reflux disease with esophagitis K 21.0 Active confirmed 327748081 Problem Anxiety F41.9 Active confirmed 73224432 Problem Left hip pain M25.552 Active confirmed 57087 002 Problem 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 ; Bilateral leg edema R60.0 ; Varicose veins of left lower extremity with ulcer of unspecified site I83.029 ; Non-pressure chronic ulcer of unspecified part of left lower leg with unspecified severity L97.929 and Pressure sore on buttocks, right, unstageable L89.310 IMMUNIZATIONS Vaccine Route Administration Date Status Influenza [...] Education Language: Question Answer Notes Languages spoken: Hungarian Sabianist: Question Answer Notes Sabianist 33 None Drug and Alcohol Question Answer Notes Total Score: 0 Interpretation: No problems reported BMI Care Goal Follow-Up Question Answer Notes Above Normal BMI Follow-Up Giving encouragement to exercise Tobacco Use: Question Answer Notes Are you a: former smoker How long has it been since you last smoked? > 10 years quit at age 41 REASON FOR REFERRAL from 1942 to 2020-11-13 Reason see pics Diagnosis 1 Non-pressure chronic ulcer o f unspecified part of left lower leg with unspecified severity (L97.929) Referral Organization [facility] Mekhi Referring Provider First Name Geo Referring Provider Last Name Mahamed Referring Provider Specialty Family Medicine Referred Organization [facility] Wound Care Referred Provider Tobi Cuevas Referred Address [address] [place] [address],[phone] ,[place], [place],[address] Referred Provider Specialty Wound Care Referral Priority Routine General Notes Shameka Ashby 11/04/2020 4: 52:32 PM > Dacia Donaldson 11/05/2020 9:19:53 AM > WCC apt has been moved up. WCC consult scheduled 11/05/20, patient aware. VITAL SIGNS Weight 235 lbs Oct, Height 67 in Oct, BMI 36.80 kg/m2 Oct, Heart Rate 76 /min Oct, Respiratory Rate 20 /min Oct, Temperature 98.2 degrees Fahrenheit Oct, Oximetry 96 Oct, Blood pressure systolic 128 mm Hg Oct, Blood pressure diastolic 72 mm Hg Oct, MEDICATIONS Medication SIG (Take, Route, Frequency, Duration) Notes Start Da te End Date Status Wheelchair _ as directed DX: G83.89 Daily for 99 months Active Omeprazole 20 MG 1 tablet Orally Once a day for 30 Days Active Optifoam 4"X4" as directed once a week and as needed for 30 Days Mar, Active Egg Crate Bed Pad - as directed _ Dx: G83.89, M54.42 for 99 days Jul, Active Vitamin D3 1000 UNIT 2 tabs with meal Orally Once a day Active May Have - as directed equipment evaluation as directed l89 .151 for 99 days Sep, Active Escitalopram Oxalate 10 MG Take 1 tablet by mouth once daily for 90 Active Calcium 600 + D 600-400 MG-UNIT 1 tablet Orally Once a day Active Furosemide 20 MG TAKE 2 TABLETS BY MOUTH IN T HE MORNING AND 1 TABLET IN THE AFTERNOON NEEDED for 90 Activ e Ibuprofen 200 MG 1 tablet as needed Orally every 6 hrs Active Normal Saline Flush 0.9 % bottle topically once a week as needed for 30 Days Mar, Active Gauze Sponge 4"X4" as directed weekly as needed for 30 Days Mar, Active tiZANidine HCl 2 MG 1 tablet as needed Orally ev chuy 8 hours as needed for muscle spasms Active Vitamin C 1000 MG 1 tablet Orally Once a day Active Optifoam _ as directed 2x2 pads Dx: L89.151 for 30 Days Jul, Active Loprox 0.77 % 1 application Externally Twice a day for 30 Days Mar, Active May Have - as directed roho cushion L89.151 for 99 days Sep, Active Gabapentin 300 MG 1 capsule Orally two times daily Active [place] OTC 1 capsule Orally Once a day Active COMPRESSION STOCKINGS 15-20 mmHg DIRECTED knee high daily for 30 d ays Active Co Q-10 200 MG as directed Orally Ac tive Commode Bedside 1 1 commode ` Use as needed for ` Active [place] 3 1200 MG 1 cap Orally Once a day Active Garlic OTC 2 tablets Orally Once a day Active PROCEDURES No Information RESULTS No Results REASON FOR VISIT discuss getting a power wheelchair wheelchair note needs to state would benefit for increased mobility/safety, unable to self propell and why, fax [phone] phone ana [phone] ext [phone], leg wound, needs referral , has apt but not unil 12/09 MEDICAL (GENERAL) HISTORY Type Description Date Medical [...] Notes Treatment Notes Treatm ent Clinical Notes Oct, Special needs due to difficu lty walking unassisted (ICD-10 - R26.2) Pt had a face to face mobilty with me today. She has mobillty limitations due to weakness in arms and legs due to cervical and lumbar spinal stenosis, urinary incontinence due to inabilty to reach toilet from mobilty impairment. His medical conditions are causing weakness in arms and legs such that mobilty assistance device is needed. She is unsafe with walker, has nearly fallen several times (topples due to inabilty to shift weight). She can not transfer out of bed with out assistance, and can not ambulate from bedroom to bathroom, kitchen or living areas in her home due to these medical conditions. Weakness in upper and lower extremities prohibits safe use of cane or walker, or an optimally configured manual wheelchair. Strength is reduced in arms and legs, Impaired transfer abilty prohibts scooter. She is willing to use a power wheelchair, and has sufficient mental and physical capability to use a PW. She would benefit from a PW, which would improve the activities of daily living as above, including getting meals, going to the bathroom, being able to bathe, and participating in family activities in the house. Oct, Adhesive capsulitis of left shoulder (ICD-10 - M 75.02) Oct, Bilateral leg edema (ICD-10 - R60.0) Oct, Varicose veins of left lower extremity with ulcer of unspecified site (ICD-10 - I83.029) Oct, Non-pressure chronic ulcer o f unspecified part of left lower leg with unspecified severity (ICD-10 - L97.929) Oct, Pressure sore on buttocks, right, unstageable (I CD-10 - L89.310) PLAN OF TREATMENT Treatment Notes Assessment Notes Clinical Notes Special needs due to difficulty walking unassisted Pt had a face to face mobilty with me today. She has mobillty limitations due to weakness in arms and legs due to cervical and lumbar spinal stenosis, urinary incontinence due to inabilty to reach toilet from mobilty impairment. His medical conditions are causing weakness in arms and legs such that mobilty assistance device is needed. She is unsafe with walker, has nearly fallen several times (topples due to inabilty to shift weight). She can not transfer out of bed with out assistance, and can not ambulate from bedroom to bathroom, kitchen or living areas in her home due to these medical conditions. Weakness in upper and lower extremities prohibits safe use of cane or walker, or an optimally configured manual wheelchair. Strength is reduced in arms and legs, Impaired transfer abilty prohibts scooter. She is willing to use a power wheelchair, and has sufficient mental and physical capability to use a PW. She would benefit from a PW, which would improve the activities of daily living as above, including getting meals, going to the bathroom, being able to bathe, and participating in family activities in the house. Referrals [facility] [address], [place], [address], Next Appt Details 6 Months Reason: Provider Name:Tobi Cuevas, 01:45:00 PM, [address], , [place], [address], Provider Name:Geo Irby, 2021-04 03:15:00 PM, [address], , [place], [address], Insurance Providers Payer Name Payer Address Payer Phone Insured Name Patient Relati onship to Insured Coverage Start Date Coverage End Date MEDICARE BLUE O [phone] [address] JODI ZAMAN
--- OUTSIDE RECORDS SUMMARY | 2021-01-08 13:01 | CCD ---
Author Author [facility] Organization [facility] Address Unknown Phone Unavailable Care Team Providers Care Day Treatment Clinician/Art Therapist Name Role Phone Geo Irby Unavailable PROBLEMS Type Condition ICD9-CM Code [id number] Code Onset Dates Condition S tatus W/U Status Risk SNOMED Code Notes Problem Vitamin D deficiency E55.9 Active confirmed 51622263 Problem Dyslipidemia E78.5 Active confirmed 9956515 07 Problem Gastroesophageal reflux disease with esophagitis K 21.0 Active confirmed 403035531 Problem Bilateral leg edema R60.0 Active confirmed 561626205 Problem Left hip pain M25.552 Active confirmed 93201 002 Problem Acute left-sided low back pain with left-sided sciatica M54.42 Active confirmed 300222855 Problem Intertriginous candidiasis B37.2 Active confirmed 491743417 Problem Anxiety F41.9 Active confirmed 48239864 Problem Medicare annual wellness visit, subsequent Z00.00 Active confirmed 770352692 Problem Pressure sore on buttocks, right, unstageable L89. 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 Active confirmed 960047788 Problem Non-pressure chronic ulcer o f unspecified part of left lower leg with unspecified severity L97.929 Active confirmed 80501644 Problem 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 Active confirmed 34275932676051554 Problem Chronic venous hypertension (idiopathic) with ulcer of left lower extremity I87.312 Active confirmed 704936013030780 ALLERGIES Allergen (clinical drug ingredient) Drug/Non Drug Allergy do cumented on EMR Reaction Allergy Type Onset Date Status fenofibrate Fenoglide([facility] Code:[address]-82) muscle aches Drug Aller gy Active atorvastatin Lipitor([facility] Code:[address]-76) muscle aches Drug Allerg y Active ENCOUNTERS from 1942 to 2020-12-02 Encounter Location Date Provider Diagnosis [facility] [address] [place] [address] Nov, Geo Irby IMMUNIZATIONS Vaccine Route Administration Date [...] Education Language: Question Answer Notes Languages spoken: Tajik Caodaism: Question Answer Notes Caodaism 33 None Drug and Alcohol Question Answer [...] Notes Start Da te End Date Status Calcium 600 + D 600-400 MG-UNIT 1 tablet Orally Once a day Active Commode Bedside 1 1 commode ` Use as needed for ` Active Ibuprofen 200 MG 1 tablet as needed Orally every 6 hrs Active Escitalopram Oxalate 10 MG Take 1 tablet by mouth once daily for 90 Active Egg Crate Bed Pad - as directed _ Dx: G83.89, M54.42 for 99 days Jul, Active Loprox 0.77 % 1 application Externally Twice a day for 30 Days Mar, Active [place] 3 1200 MG 1 cap Orally Once a day Active Gauze Sponge 4"X4" as directed weekly as needed for 30 Days Mar, Active Vitamin C 1000 MG 1 tablet Orally Once a day Active Omeprazole 20 MG 1 tablet Orally Once a day for 30 Days Active Optifoam 4"X4" as directed once a week and as needed for 30 Days Mar, Active May Have - as directed rohnorberto coleman L89.151 for 99 days Sep, Active Normal Saline Flush 0.9 % bottle topically once a week as needed for 30 Days Mar, Active Furosemide 20 MG TAKE 2 TABLETS BY MOUTH IN T HE MORNING AND 1 TABLET IN THE AFTERNOON NEEDED for 90 Activ e [place] OTC 1 capsule Orally Once a day Active Wheelchair _ as directed DX: G83.89 Daily for 99 months Active COMPRESSION STOCKINGS 15-20 mmHg DIRECTED knee high daily for 30 d ays Active Garlic OTC 2 tablets Orally Once a day Active Optifoam _ as directed 2x2 pads Dx: L89.151 for 30 Days Jul, Active Gabapentin 300 MG 1 capsule Orally two times daily Active Co Q-10 200 MG as directed Orally Ac tive May Have - as directed equipment evaluation as directed l89 .151 for 99 days Sep, Active tiZANidine HCl 2 MG 1 tablet as needed Orally ev chuy 8 hours as needed for muscle spasms Active Vitamin D3 1000 UNIT 2 tabs with meal Orally Once a day Active PROCEDURES No Information RESULTS No Results REASON FOR VISIT power chair paperwork MEDICAL (GENERAL) HISTORY Type Description Date [...] Medication Name Sig Start Date Stop Date Escitalopram Oxalate 10 MG Take 1 tablet by mouth once daily for 90 Next Appt Details Provider Name:Geo Irby, 2020-11 10:45:00 AM, [address], , [place], [address], Provider Name:Geo Irby, 2021-04 03:15:00 PM, [address], , [place], [address], Insurance Providers Payer Name Payer Address Payer Phone Insured Name Patient Relati onship to Insured Coverage Start Date Coverage End Date MEDICARE BLUE PPO [address] [facility] [address] JODI ZAMAN
--- OUTSIDE RECORDS SUMMARY | 2021-01-08 13:01 | CCD ---
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 Active confirmed 502610505 Problem Pressure ulcer of coccygeal region, stage 1 L89.15 1 Active confirmed 484036094 ALLERGIES Allergen (clinical drug ingredient) Drug/Non Drug Allergy do cumented on EMR Reaction Allergy Type Onset Date Status Fenoglide muscle aches Non Drug Allergy Active atorvastatin Lipitor([facility] Code:[address]-20) muscle aches Drug Allerg y Active ENCOUNTERS from 1942 to 2020-10-24 Encounter Location Date Provider Diagnosis [facility] [place] [address] [facility] [phone] [place] [address] Oct, 2020 Geo Mahamed IMMUNIZATIONS Vaccine Route Administration Date Status Influenza [...] Education Language: Question Answer Notes Languages spoken: Mexican Quaker: Question Answer Notes Quaker 33 None Drug and Alcohol Question Answer [...] Notes Start Da te End Date Status Escitalopram Oxalate 10 MG Take 1 tablet by mouth once daily for 90 Active Egg Crate Bed Pad - as directed _ Dx: G83.89, M54.42 for 99 days Jul, Active Escitalopram Oxalate 10 MG 1 tablet Orally Once a day for 90 day(s) Active [place] 3 1200 MG 1 cap Orally Once a day Active Gabapentin 300 MG 1 capsule Orally two times daily Active Loprox 0.77 % 1 application Externally Twice a day for 30 Days Mar, Active Vitamin C 1000 MG 1 tablet Orally Once a day Active Gauze Sponge 4"X4" as directed weekly as needed for 30 Days Mar, Active [place] OTC 1 capsule Orally Once a day Active May Have - as directed roho cushion L89.151 for 99 days Sep, Active Commode Bedside 1 1 commode ` Use as needed for ` Active May Have - as directed equipment evaluation as directed l89 .151 for 99 days Sep, Active Vitamin D3 1000 UNIT 2 tabs with meal Orally Once a day Active Optifoam 4"X4" as directed once a week and as needed for 30 Days Mar, Active Ibuprofen 200 MG 1 tablet as needed Orally every 6 hrs Active Optifoam _ as directed 2x2 pads Dx: L89.151 for 30 Days Jul, Active COMPRESSION STOCKINGS 15-20 mmHg DIRECTED knee high daily for 30 d ays Active Garlic OTC 2 tablets Orally Once a day Active Calcium 600 + D 600-400 MG-UNIT 1 tablet Orally Once a day Active tiZANidine HCl 2 MG 1 tablet as needed Orally ev chuy 8 hours as needed for muscle spasms Active Furosemide 20 MG TAKE 2 TABLETS BY MOUTH IN T HE MORNING AND 1 TABLET IN THE AFTERNOON NEEDED for 90 Activ e Omeprazole 20 MG 1 tablet Orally Once a day for 30 Days Active Normal Saline Flush 0.9 % bottle topically once a week as needed for 30 Days Mar, Active Wheelchair _ as directed DX: G83.89 Daily for 99 months Active PROCEDURES No Information RESULTS No Results REASON FOR VISIT New wound MEDICAL (GENERAL) HISTORY Type Description Date Medical [...] History colonoscopy 2006 Surgical History Colonoscopy, Dr. eMlly Melo 3 Goals Section No Information Health Concerns No Information MEDICAL EQUIPMENT No Information MENTAL STATUS No Information FUNCTIONAL STATUS No Information ASSESSMENTS No Information PLAN OF TREATMENT Medication Medication Name Sig Start Date Stop Date May Have - as directed equipment evaluation as dire cted l89.151 for 99 days Sep, Omeprazole 20 MG 1 tablet Orally Once a day for 30 Days May Have - as directed michelle coleman L89.151 for 99 days Sep, Next Appt Details Provider Name:Geo Irby, 2020-10 02:30:00 PM, [address], , [place], [address], Insurance Providers Payer Name Payer Address Payer Phone Insured Name Patient Relati onship to Insured Coverage Start Date Coverage End Date MEDICARE BLUE PPO [address] [place] [id number] JODI ZAMAN self
--- OUTSIDE RECORDS SUMMARY | 2021-01-08 13:01 | CCD ---
Author Author [facility] Organization [facility] Address Unknown Phone Unavailable Care Team Providers Care B2B Sales Executive Name Role Phone Tobi Cuevas Unavailable PROBLEMS Type Condition ICD9-CM Code [id number] Code Onset Dates Condition S tatus W/U Status Risk SNOMED Code Notes Problem Vitamin D deficiency E55.9 Active confirmed 05874642 Problem Dyslipidemia E78.5 Active confirmed 7570794 07 Problem Gastroesophageal reflux disease with esophagitis K 21.0 Active confirmed 196725600 Problem Bilateral leg edema R60.0 Active confirmed 756663076 Problem Left hip pain M25.552 Active confirmed 82638 002 Problem Acute left-sided low back pain with left-sided sciatica M54.42 Active confirmed 622841585 Problem Intertriginous candidiasis B37.2 Active confirmed 983791249 Problem Anxiety F41.9 Active confirmed 32638053 Problem Medicare annual wellness visit, subsequent Z00.00 Active confirmed 076199698 Problem Pressure sore on buttocks, right, unstageable L89. 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 Active confirmed 496295792 Problem Non-pressure chronic ulcer o f unspecified part of left lower leg with unspecified severity L97.929 Active confirmed 44923894 Problem 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 Active confirmed 31897136919829869 Problem Chronic venous hypertension (idiopathic) with ulcer of left lower extremity I87.312 Active confirmed 111498852356707 ALLERGIES Allergen (clinical drug ingredient) Drug/Non Drug Allergy do cumented on EMR Reaction Allergy Type Onset Date Status Fenoglide muscle aches Non Drug Allergy Active atorvastatin Lipitor([facility] Code:[address]-31) muscle aches Drug Allerg y Active ENCOUNTERS from 1940 to 2020-11-26 Encounter Location Date Provider Diagnosis [facility] [address] [phone] [place] [address] Nov, Tobi Cuevas IMMUNIZATIONS Vaccine Route Administration Date Status Influenza [...] Education Language: Question Answer Notes Languages spoken: Czech Nondenominational: Question Answer Notes Nondenominational 33 None Drug and Alcohol Question Answer [...] 200 MG as directed Orally Ac tive [place] 3 1200 MG 1 cap Orally Once [...] Active May Have - as directed rohnorberto cushion L89.151 for 99 days Sep, Active Furosemide 20 MG TAKE 2 TABLETS BY MOUTH IN T HE MORNING AND 1 TABLET IN THE AFTERNOON NEEDED for 90 Activ e Escitalopram Oxalate 10 MG Take 1 tablet by mouth once daily for 90 Active [place] OTC 1 capsule Orally Once a day [...] Information RESULTS No Results REASON FOR VISIT No Information MEDICAL (GENERAL) HISTORY Type Description Date Medical [...] Information ASSESSMENTS No Information PLAN OF TREATMENT Next Appt Details Provider Name:Geo Irby, 2021-04 03:15:00 PM, [address], , [place], [address], Insurance Providers Payer Name Payer Address Payer Phone Insured Name Patient Relati onship to Insured Coverage Start Date Coverage End Date MEDICARE BLUE PPO [id number] [address] JODI ZAMAN self
--- OUTSIDE RECORDS SUMMARY | 2021-01-08 13:01 | CCD ---
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 Ac tive confirmed 051514478 Problem Bilateral leg edema R60.0 Active confirmed 887311514 Problem Vitamin D deficiency E55.9 Active confirmed 49360685 Problem Acute left-sided low back pain with left-sided sciatica M54.42 Active confirmed 370141269 Problem Gastroesophageal reflux disease with esophagitis K 21.0 Active confirmed 689894185 Problem Anxiety F41.9 Active confirmed 45443138 Problem Left hip pain M25.552 Active confirmed 97791 002 Problem 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 Active confirmed 051142007 Problem Non-pressure chronic ulcer o f unspecified part of left lower leg with unspecified severity L97.929 Active confirmed 83416856 Problem Pressure injury of coccygeal region, 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 53 Active confirmed 103583877 ALLERGIES Allergen (clinical drug ingredient) Drug/Non Drug Allergy do cumented on EMR Reaction Allergy Type Onset Date Status Fenoglide muscle aches Non Drug Allergy Active atorvastatin Lipitor([facility] Code:[address]-49) muscle aches Drug Allerg y Active ENCOUNTERS from 1942 to 2020-11-14 Encounter Location Date Provider Diagnosis [place] [id number] [place] [phone] Oct, Geo Irby IMMUNIZATIONS Vaccine Route Administration Date [...] Education Language: Question Answer Notes Languages spoken: Estonian Mormon: Question Answer Notes Mormon 33 None Drug and Alcohol Question Answer [...] 1 capsule Orally two times daily Active [place] OTC 1 capsule Orally Once a day Active COMPRESSION STOCKINGS 15-20 mmHg DIRECTED knee high daily for 30 d ays Active Co Q-10 200 MG as directed Orally Ac tive Commode Bedside 1 1 commode ` Use as needed for ` Active [place] 3 1200 MG 1 cap Orally Once a day Active Garlic OTC 2 tablets Orally Once a day Active PROCEDURES No Information RESULTS No Results REASON FOR VISIT fax note when done MEDICAL (GENERAL) HISTORY Type Description Date Medical [...] PLAN OF TREATMENT Next Appt Details Provider Name:Tobi Cuevas, 01:45:00 PM, [address] [facility] [facility], , [place], [address], Provider Name:Geo Mahamed, 2021-04 03:15:00 PM, [address], , [place], [address], Insurance Providers Payer Name Payer Address Payer Phone Insured Name Patient Relati onship to Insured Coverage Start Date Coverage End Date MEDICARE BLUE PPO [address] [id number] JODI ZAMAN
--- OUTSIDE RECORDS SUMMARY | 2021-01-08 13:01 | CCD ---
Author Author [facility] Organization [facility] Address Unknown Phone Unavailable Care Team Providers Care Reject Opener And Filler Name Role Phone Geo Irby Unavailable PROBLEMS Type Condition ICD9-CM Code [id number] Code Onset Dates Condition S tatus W/U Status Risk SNOMED Code Notes Problem Vitamin D deficiency E55.9 Active confirmed 10854030 Problem Dyslipidemia E78.5 Active confirmed 4101059 07 Problem Gastroesophageal reflux disease with esophagitis K 21.0 Active confirmed 295838629 Problem Bilateral leg edema R60.0 Active confirmed 204116720 Problem Left hip pain M25.552 Active confirmed 06681 002 Problem Acute left-sided low back pain with left-sided sciatica M54.42 Active confirmed 853938477 Problem Intertriginous candidiasis B37.2 Active confirmed 574818860 Problem Anxiety F41.9 Active confirmed 43146376 Problem Medicare annual wellness visit, subsequent Z00.00 Active confirmed 623395891 Problem Pressure sore on buttocks, right, unstageable L89. 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 Active confirmed 732693076 Problem Non-pressure chronic ulcer o f unspecified part of left lower leg with unspecified severity L97.929 Active confirmed 67139399 Problem 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 Active confirmed 54921079694885775 Problem Chronic venous hypertension (idiopathic) with ulcer of left lower extremity I87.312 Active confirmed 666938718535725 ALLERGIES Allergen (clinical drug ingredient) Drug/Non Drug Allergy do cumented on EMR Reaction Allergy Type Onset Date Status Fenoglide muscle aches Non Drug Allergy Active atorvastatin Lipitor([facility] Code:[address]-34) muscle aches Drug Allerg y Active ENCOUNTERS from 1942 to 2020-11-28 Encounter Location Date Provider Diagnosis [place] [id number] [place] [address] Nov, Geo Irby IMMUNIZATIONS Vaccine Route [...] Education Language: Question Answer Notes Languages spoken: Telugu Christianity: Question Answer Notes Christianity 33 None Drug and Alcohol Question Answer [...] 200 MG as directed Orally Ac tive [place] 3 1200 MG 1 cap Orally Once [...] by mouth once daily for 90 Active [place] OTC 1 capsule Orally Once a day [...] Information RESULTS No Results REASON FOR VISIT call back lasix MEDICAL (GENERAL) HISTORY Type Description Date [...] TREATMENT Next Appt Details Provider Name:Geo Irby, 2020-11 10:45:00 AM, [address], , [place], [address], Provider Name:Geo Irby, 2021-04 03:15:00 PM, [address], , [place], [address], Insurance Providers Payer Name Payer Address Payer Phone Insured Name Patient Relati onship to Insured Coverage Start Date Coverage End Date MEDICARE BLUE PPO [address] [facility] BLUE [id number] [address] JODI ZAMAN
--- OUTSIDE RECORDS SUMMARY | 2021-01-08 13:01 | CCD ---
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 Ac tive confirmed 109356980 Problem Bilateral leg edema R60.0 Active confirmed 511558317 Problem Vitamin D deficiency E55.9 Active confirmed 79834603 Problem Acute left-sided low back pain with left-sided sciatica M54.42 Active confirmed 319992533 Problem Gastroesophageal reflux disease with esophagitis K 21.0 Active confirmed 905166730 Problem Anxiety F41.9 Active confirmed 00658951 Problem Left hip pain M25.552 Active confirmed 41224 002 Problem 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 Active confirmed 822779818 Problem Non-pressure chronic ulcer o f unspecified part of left lower leg with unspecified severity L97.929 Active confirmed 26194809 Problem Pressure injury of coccygeal region, 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 53 Active confirmed 136860013 ALLERGIES Allergen (clinical drug ingredient) Drug/Non Drug Allergy do cumented on EMR Reaction Allergy Type Onset Date Status Fenoglide muscle aches Non Drug Allergy Active atorvastatin Lipitor([facility] Code:[address]-41) muscle aches Drug Allerg y Active ENCOUNTERS from 1942 to 2020-11-06 Encounter Location Date Provider Diagnosis [facility] Care [address] [facility] [phone] [place] [address] Oct, Tobi Mason Stasis dermatitis I87.2 and Pressure injury of [...] Education Language: Question Answer Notes Languages spoken: [place] Buddhist: Question Answer Notes Buddhist 33 None Drug and Alcohol Question Answer [...] No Information VITAL SIGNS Weight 235 lbs Oct, Weight-kg 106.6 kg Oct, Height 67 in Oct, BMI 36.80 kg/m2 Oct, Heart Rate 70 /min Oct, Respiratory Rate 18 /min Oct, Temperature 95.4 degrees Fahrenheit Oct, Oximetry 95 Oct, Blood pressure systolic 120 mm Hg Oct, Blood pressure diastolic 65 mm Hg Oct, MEDICATIONS Medication SIG (Take, [...] TAKE 2 TABLETS BY MOUTH IN T MORNING AND 1 TABLET IN THE AFTERNOON [...] 1 capsule Orally two times daily Active [place] OTC 1 capsule Orally Once a day Active COMPRESSION STOCKINGS 15-20 mmHg DIRECTED knee high daily for 30 d ays Active Co Q-10 200 MG as directed Orally Ac tive Commode Bedside 1 1 commode ` Use as needed for ` Active [place] 3 1200 MG 1 cap Orally Once a day Active Garlic OTC 2 tablets Orally Once a day Active PROCEDURES from 1942 to 2020-11-06 Procedure Date Ordered Result Body Site Medication: Silver Nitrate Stick topically 2020-11-05 N/A Medication: 4% Lidocaine topical cream (Anecream) 5gm 2020-11-05 N/A RESULTS No Results REASON FOR VISIT Left Ankle Wound MEDICAL (GENERAL) HISTORY Type [...] Treatment Notes Treatm ent Clinical Notes Oct, Stasis dermatitis (ICD-10 - I87.2) Oct, Pressure injury of coccygeal region, stage 3 (IC D-10 - L89.153) I, Mayda Bustamante, documented the above order acting as a scribe for Dr. Cuevas. I have reviewed the above order, written by lydia Armstrong, and I verify that it is accurate. PLAN OF TREATMENT Treatment Notes Assessment Notes Clinical Notes Pressure injury of coccygeal region, stage 3 I, Mayda Bustamante, documented the above order acting as a scribe for Dr. Cuevas. I have reviewed the above order, written by lydia Armstrong, and I verify that it is accurate. Next Appt Details 2 Weeks Reason: Provider Name:Tobi Cuevas, 01:45:00 PM, [address], , [place], [address], Provider Name:Geo Irby, 2021-04 03:15:00 PM, [address], , [place], [address], Insurance Providers Payer Name Payer Address Payer Phone Insured Name Patient Relati onship to Insured Coverage Start Date Coverage End Date MEDICARE BLUE PPO [id number] [address] JODI ZAMAN self
--- OUTSIDE RECORDS SUMMARY | 2021-01-08 13:01 | CCD | Continuity of Care Document ---
Author Author [facility] Organization Unknown Address Unknown Phone Unavailable Care Team Providers Care Valve Setter Name Role Phone Geo Irby Unavailable Unavailable Unavailable Geo Irby Unavailable Unavailable Unavailable Mimi Esme Unavailable Jason Jin Unavailable Problems Name Dates Details Pressure ulcer [...] MG Misael Irby Start : 19-Sep-2020 Active [place] Extract 250 MG Misael Irby Start : 19-Sep-2020 Active Vitamin C 1000 MG Misael Irby Start : 19-Sep-2020 Active [place] 3 1200 MG Misael Irby Start : 19-Sep-2020 Active Allergies and Adverse Reactions Name Dates Details lapitor, fenoglide (Allergy) Onset: Status: Active Results Date Description Value Details No Known Results Plan of Care Name Dates Details Instructions Diet:Regular Diet Ins truction Type: Nutrition education Payers * Amber BC/BS * [facility]
--- OUTSIDE RECORDS SUMMARY | 2021-01-08 13:02 | CCD ---
Author Author [facility] Organization [facility] Address Unknown Phone Unavailable Support Name Relationship Address Phone ARCHANA DONALD Next Of Kin [address] [place] [address] RE Next Of Kin Unknown Unavailable RETIRED Next Of Kin Unknown Andria ZAMAN Next Of Kin [address] [place] [address] Archana Donald ECON Unknown Unavailable Andria ZAMAN ECON [address] [place] [address] Unavailable Re-disclosure Warning The records that you are about to access may contain information from federally-assisted alcohol or drug abuse programs. If such information is present, then the following federally mandated warning applies: This information has been disclosed to you from records protected by federal confidentiality rules (42 CFR part 2). The federal rules prohibit you from making any further disclosure of this information unless further disclosure is expressly permitted by the written consent of the person to whom it pertains or as otherwise permitted by 42 CFR part 2. A general authorization for the release of medical or other information is NOT sufficient for this purpose. The Federal rules restrict any use of the information to criminally investigate or prosecute any alcohol or drug abuse patient.The records that you are about to access may contain highly sensitive health information, the redisclosure of which is protected by Article 27-F of the [facility] Public Health law. If you continue you may have access to information: Regarding HIV / AIDS; Provided by facilities licensed or operated by the [facility] Office of Mental Health; or Provided by the [facility] Office for People With Developmental Disabilities. If such information is present, then the following [facility] mandated warning applies: This information has been disclosed to you from confidential records which are protected by state law. State law prohibits you from making any further disclosure of this information without the specific written consent of the person to whom it pertains, or as otherwise permitted by law. Any unauthorized further disclosure in violation of state law may result in a fine or long-term sentence or both. A general authorization for the release of medical or other information is NOT sufficient authorization for further disc losure. Allergies and Adverse Reactions Type Description Substance Reaction Status Data Source(s ) lapitor, fenoglide lapitor, fenoglide lapitor, fenoglide a ctive NETSMART ([facility]) Encounters Encounter Providers Location Date Indications Data Source(s ) Unknown [address] [facility] [id number] 01/06/2021 12:00:00 AM EST eCW1 ([facility]) Unknown [address] [facility] [id number] 12/31/2020 12:00:00 AM EST eCW1 ([facility]) Unknown [address] [facility] [address] 12/31/2020 12:00:00 AM EST eCW1 ([facility]) Unknown [address] [facility] [address] 12/30/2020 12:00:00 AM EST eCW1 ([facility]) Unknown [address] [facility] [address] 12/22/2020 12:00:00 AM EST eCW1 ([facility]) TeleMedicine Est. Pt. Level 1 [address] [place] [address] 12/03/2020 12:00:00 AM EDT eCW1 ([facility]) Unknown [address] [facility] [id number] 12/01/2020 12:00:00 AM EDT eCW1 ([facility]) Unknown [address] [facility] [address] 11/26/2020 12:00:00 AM EDT eCW1 ([facility]) Unknown [address] [facility] [id number] 11/25/2020 12:00:00 AM EDT eCW1 ([facility]) (SABINE BONDS) Stretcher Required Patients [address] [place] [address] 11/21/2020 12:00:00 AM EDT eCW1 ([facility]) Unknown [address] [facility] [place] [address] 11/05/2020 12:00:00 AM EDT eCW1 ([facility]) (WND NP120) New Patient [address] [place] [address] 11/05/2020 12:00:00 AM EDT eCW1 ([facility]) Outpatient [address] [facility] [place] [address] 11/04/2020 12:00:00 AM EDT eCW1 ([facility]) Unknown [address] [facility] [place] [address] 10/23/2020 12:00:00 AM EDT eCW1 ([facility]) Unknown [address] [facility] [place] [address] 10/02/2020 12:00:00 AM EDT eCW1 ([facility]) Unknown [address] [facility] [place] [address] 10/01/2020 12:00:00 AM EDT eCW1 ([facility]) Unknown [address] [facility] [place] [address] 09/29/2020 12:00:00 AM EDT eCW1 ([facility]) Unknown [address] [facility] [place] [address] 09/22/2020 12:00:00 AM EDT eCW1 ([facility]) 09/19/2020 01:00:00 AM EDT - 021 10:13:31 AM EDT NETSMART ([facility]) Unknown [address] [facility] [place] [address] 09/15/2020 12:00:00 AM EDT eCW1 ([facility]) TeleMedicine Est. Pt. Level [address] [place] [address] 09/03/2020 12:00:00 AM EDT eCW1 ([facility]) [place] [address] [facility] [place] [address] 08/26/2020 12:00:00 AM EDT eCW1 ([facility]) [place] [address] [facility] [place] [address] 08/20/2020 12:00:00 AM EDT eCW1 [facility] TeleMedicine Est. Pt. Level 2 [address] [place] [address] 06/18/2020 12:00:00 AM EDT eCW1 ([facility]) [place] [address] [facility] [place] [address] 06/02/2020 12:00:00 AM EDT eCW1 ([facility] [place] [address] [facility] [place] [address] 05/12/2020 12:00:00 AM EDT eCW1 ([facility]) [place] [address] [facility] [place] [address] 04/17/2020 12:00:00 AM EST eCW1 ([facility] [place] [address] [facility] [place] [address] 04/15/2020 12:00:00 AM EST eCW1 ([facility] [place] [address] [facility] [place] [address] 04/09/2020 12:00:00 AM EST eCW1 ([facility] Office Visit, Est Pt., Level 4 PC [address] [place] [address] 04/04/2020 12:00:00 AM EST eCW1 ([facility]) [place] [address] [facility] [place] [address] 03/27/2020 12:00:00 AM EST eCW1 ([facility] [place] [address] [facility] [place] [address] 03/26/2020 12:00:00 AM EST eCW1 ([facility]) [place] [address] [facility] [place] [address] 03/24/2020 12:00:00 AM EST eCW1 ([facility] [place] [address] [facility] [place] [address] 03/21/2020 12:00:00 AM EST eCW1 ([facility] Outpatient [address] [facility] [place] [address] 03/20/2020 12:00:00 AM EST eCW1 [facility]) Unknown [address] [facility] [place] [address] 01/25/2020 12:00:00 AM EST eCW1 ([facility]) [place] [address] [facility] [place] [address] 01/23/2020 12:00:00 AM EST eCW1 ([facility]) Out[place] [address] [facility] [place] [address] 01/18/2020 12:00:00 AM EST eCW1 ([facility]) Unknown [address] [facility] [place] [address] 01/08/2020 12:00:00 AM EST eCW1 ([facility]) Unknown [address] [facility] [place] [address] 12/03/2019 12:00:00 AM EDT eCW1 ([facility] [place] [address] [facility] [place] [address] 12/03/2019 12:00:00 AM EDT eCW1 ([facility]) Unknown [address] [facility] [place] [address] 11/25/2019 12:00:00 AM EDT eCW1 ([facility]) Medications Medication Brand Name Start Date Product Form Dose Route Admi nistrative Instructions Pharmacy Instructions Status Indications Reaction Description Data Source(s) Co-Enzyme Q10 200 MG Co-Enzyme Q10 10/09/2020 01:00:00 AM EDT completed NETSMART ([facility]) May Have - UNK 10/02/2020 12:00:00 AM EDT active May Have - eCW1 ([facility]) May Have - UNK 10/02/2020 12:00:00 AM EDT active May Have - eCW1 ([facility]) May Have - UNK 10/02/2020 12:00:00 AM EDT active May Have - eCW1 ([facility]) May Have - UNK 10/02/2020 12:00:00 AM EDT active May Have - eCW1 ([facility]) May Have - UNK 10/02/2020 12:00:00 AM EDT active May Have - eCW1 ([facility]) May Have - UNK 10/02/2020 12:00:00 AM EDT active May Have - eCW1 ([facility]) May Have - UNK 10/02/2020 12:00:00 AM EDT active May Have - eCW1 ([facility]) May Have - UNK 10/02/2020 12:00:00 AM EDT active May Have - eCW1 ([facility]) May Have - UNK 10/02/2020 12:00:00 AM EDT active May Have - eCW1 ([facility]) May Have - UNK 10/02/2020 12:00:00 AM EDT active May Have - eCW1 ([facility]) May Have - UNK 10/02/2020 12:00:00 AM EDT active May Have - eCW1 ([facility]) May Have - UNK 10/02/2020 12:00:00 AM EDT active May Have - eCW1 ([facility]) May Have - UNK 10/02/2020 12:00:00 AM EDT active May Have - eCW1 ([facility]) May Have - UNK 10/02/2020 12:00:00 AM EDT active May Have - eCW1 ([facility]) May Have - UNK 10/02/2020 12:00:00 AM EDT active May Have - eCW1 ([facility]) May Have - UNK 10/02/2020 12:00:00 AM EDT active May Have - eCW1 ([facility]) May Have - UNK 09/24/2020 12:00:00 AM EDT active May Have - eCW1 ([facility]) May Have - UNK 09/24/2020 12:00:00 AM EDT active May Have - eCW1 ([facility]) May Have - UNK 09/24/2020 12:00:00 AM EDT active May Have - eCW1 ([facility]) May Have - UNK 09/24/2020 12:00:00 AM EDT active May Have - eCW1 ([facility]) May Have - UNK 09/24/2020 12:00:00 AM EDT active May Have - eCW1 ([facility]) May Have - UNK 09/24/2020 12:00:00 AM EDT active May Have - eCW1 ([facility]) May Have - UNK 09/24/2020 12:00:00 AM EDT active May Have - eCW1 ([facility]) May Have - UNK 09/24/2020 12:00:00 AM EDT active May Have - eCW1 ([facility]) May Have - UNK 09/24/2020 12:00:00 AM EDT active May Have - eCW1 ([facility]) May Have - UNK 09/24/2020 12:00:00 AM EDT active May Have - eCW1 ([facility]) May Have - UNK 09/24/2020 12:00:00 AM EDT active May Have - eCW1 ([facility]) May Have - UNK 09/24/2020 12:00:00 AM EDT active May Have - eCW1 ([facility]) May Have - UNK 09/24/2020 12:00:00 AM EDT active May Have - eCW1 ([facility]) May Have - UNK 09/24/2020 12:00:00 AM EDT active May Have - eCW1 ([facility]) May Have - UNK 09/24/2020 12:00:00 AM EDT active May Have - eCW1 ([facility]) May Have - UNK 09/24/2020 12:00:00 AM EDT active May Have - eCW1 ([facility]) May Have - UNK 09/24/2020 12:00:00 AM EDT active May Have - eCW1 ([facility]) May Have - UNK 09/24/2020 12:00:00 AM EDT active May Have - eCW1 ([facility]) Warren 3 1200 MG Warren 3 09/19/2020 01:00:00 AM EDT completed NETSMART ([facility]) [facility] [place] Extract 250 MG [facility] [place] Extract 09/19/2020 01:00:00 AM EDT completed NETSMART ([facility]) Vitamin C 1000 MG Vitamin C 09/19/2020 01:00:00 AM EDT completed NETSMART ([facility] ) Tylenol 8 Hour Arthritis Pain 650 MG Tylenol 8 Hour Arthriti s Pain 09/19/2020 01:00:00 AM EDT completed NETSMART ([facility]) tiZANidine HCl 2 MG tiZANidine HCl 09/19/2020 01:00:00 AM EDT completed NETSMART ([facility]) Bacitracin 500 UNIT/GM Bacitracin 09/19/2020 01:00:00 AM EDT completed NETSMART ([facility]) Turmeric Curcumin 500 MG Turmeric Curcumin 09/19/2020 01:00:00 AM EDT completed NETSMART ([facility]) Furosemide 20 MG Furosemide 09/19/2020 01:00:00 AM EDT 2.0 {tabl et} completed NETSMART ([facility]) Vitamin D (Cholecalciferol) 1000 UNIT Vitamin D (Cholecalcif luis alberto) 09/19/2020 01:00:00 AM EDT 2.0 {tablet} completed NETSMART ([facility]) Gabapentin 300 MG Gabapentin 09/19/2020 01:00:00 AM EDT completed NETSMART ([facility] ) Escitalopram Oxalate 10 MG Escitalopram Oxalate 09/19/2020 01:00:00 A M EDT completed NETSMART ( [facility]) Calcium 600+D 600-400 MG-UNIT Calcium 600+D 09/19/2020 01:00:00 AM EDT completed NETSMART ([facility]) Omeprazole 20 MG Omeprazole 09/19/2020 01:00:00 AM EDT completed NETSMART ([facility] ) Garlic 1500 1500 MG Garlic 1500 09/19/2020 01:00:00 AM EDT 2.0 { tablet} completed NETSMART ([facility]) Normal Saline Flush 0.9 % Normal Saline Flush 0.9 % 03/26/2020 1 2:00:00 AM EST active Normal Saline Fl ush 0.9 % eCW1 ([facility]) Normal Saline Flush 0.9 % Normal Saline Flush 0.9 % 03/26/2020 1 2:00:00 AM EST active Normal Saline Fl ush 0.9 % eCW1 ([facility]) Optifoam 4"X4" UNK 03/26/2020 12:00:00 AM EST active Optifoam 4"X4" eCW1 ([facility]) Normal Saline Flush 0.9 % Normal Saline Flush 0.9 % 03/26/2020 1 2:00:00 AM EST active Normal Saline Fl ush 0.9 % eCW1 ([facility]) Gauze Sponge 4"X4" UNK 03/26/2020 12:00:00 AM EST active Gauze Sponge 4"X4" eCW1 ([facility]) Gauze Sponge 4"X4" UNK 03/26/2020 12:00:00 AM EST active Gauze Sponge 4"X4" eCW1 ([facility]) Gauze Sponge 4"X4" UNK 03/26/2020 12:00:00 AM EST active Gauze Sponge 4"X4" eCW1 ([facility]) Normal Saline Flush 0.9 % Normal Saline Flush 0.9 % 03/26/2020 1 2:00:00 AM EST active Normal Saline Fl ush 0.9 % eCW1 ([facility]) Gauze Sponge 4"X4" UNK 03/26/2020 12:00:00 AM EST active Gauze Sponge 4"X4" eCW1 ([facility]) Gauze Sponge 4"X4" UNK 03/26/2020 12:00:00 AM EST active Gauze Sponge 4"X4" eCW1 ([facility]) Gauze Sponge 4"X4" UNK 03/26/2020 12:00:00 AM EST active Gauze Sponge 4"X4" eCW1 ([facility]) Normal Saline Flush 0.9 % Normal Saline Flush 0.9 % 03/26/2020 1 2:00:00 AM EST active Normal Saline Fl ush 0.9 % eCW1 ([facility]) Gauze Sponge 4"X4" UNK 03/26/2020 12:00:00 AM EST active Gauze Sponge 4"X4" eCW1 ([facility]) Optifoam 4"X4" Optifoam 4"X4" 03/26/2020 12:00:00 AM EST active Optifoam 4"X4" eCW1 ([facility]) Optifoam 4"X4" UNK 03/26/2020 12:00:00 AM EST active Optifoam 4"X4" eCW1 ([facility]) Gauze Sponge 4"X4" UNK 03/26/2020 12:00:00 AM EST active Gauze Sponge 4"X4" eCW1 ([facility]) Optifoam 4"X4" UNK 03/26/2020 12:00:00 AM EST active Optifoam 4"X4" eCW1 ([facility]) Optifoam 4"X4" Optifoam 4"X4" 03/26/2020 12:00:00 AM EST active Optifoam 4"X4" eCW1 ([facility]) Optifoam 4"X4" UNK 03/26/2020 12:00:00 AM EST active Optifoam 4"X4" eCW1 ([facility]) Normal Saline Flush 0.9 % Normal Saline Flush 0.9 % 03/26/2020 1 2:00:00 AM EST active Normal Saline Fl ush 0.9 % eCW1 ([facility]) Normal Saline Flush 0.9 % Normal Saline Flush 0.9 % 03/26/2020 1 2:00:00 AM EST active Normal Saline Fl ush 0.9 % eCW1 ([facility]) Optifoam 4"X4" Optifoam 4"X4" 03/26/2020 12:00:00 AM EST active Optifoam 4"X4" eCW1 ([facility]) Gauze Sponge 4"X4" UNK 03/26/2020 12:00:00 AM EST active Gauze Sponge 4"X4" eCW1 ([facility]) Gauze Sponge 4"X4" UNK 03/26/2020 12:00:00 AM EST active Gauze Sponge 4"X4" eCW1 ([facility]) Optifoam 4"X4" UNK 03/26/2020 12:00:00 AM EST active Optifoam 4"X4" eCW1 ([facility]) Optifoam 4"X4" Optifoam 4"X4" 03/26/2020 12:00:00 AM EST active Optifoam 4"X4" eCW1 ([facility]) Normal Saline Flush 0.9 % Normal Saline Flush 0.9 % 03/26/2020 1 2:00:00 AM EST active Normal Saline Fl ush 0.9 % eCW1 ([facility]) Gauze Sponge 4"X4" UNK 03/26/2020 12:00:00 AM EST active Gauze Sponge 4"X4" eCW1 ([facility]) Gauze Sponge 4"X4" UNK 03/26/2020 12:00:00 AM EST active Gauze Sponge 4"X4" eCW1 ([facility]) Normal Saline Flush 0.9 % Normal Saline Flush 0.9 % 03/26/2020 1 2:00:00 AM EST active Normal Saline Fl ush 0.9 % eCW1 ([facility]) Optifoam 4"X4" UNK 03/26/2020 12:00:00 AM EST active Optifoam 4"X4" eCW1 ([facility]) Normal Saline Flush 0.9 % Normal Saline Flush 0.9 % 03/26/2020 1 2:00:00 AM EST active Normal Saline Fl ush 0.9 % eCW1 ([facility]) Gauze Sponge 4"X4" UNK 03/26/2020 12:00:00 AM EST active Gauze Sponge 4"X4" eCW1 ([facility]) Normal Saline Flush 0.9 % Normal Saline Flush 0.9 % 03/26/2020 1 2:00:00 AM EST active Normal Saline Fl ush 0.9 % eCW1 ([facility]) Gauze Sponge 4"X4" UNK 03/26/2020 12:00:00 AM EST active Gauze Sponge 4"X4" eCW1 ([facility]) Optifoam 4"X4" UNK 03/26/2020 12:00:00 AM EST active Optifoam 4"X4" eCW1 ([facility]) Optifoam 4"X4" UNK 03/26/2020 12:00:00 AM EST active Optifoam 4"X4" eCW1 ([facility]) Gauze Sponge 4"X4" UNK 03/26/2020 12:00:00 AM EST active Gauze Sponge 4"X4" eCW1 ([facility]) Normal Saline Flush 0.9 % Normal Saline Flush 0.9 % 03/26/2020 1 2:00:00 AM EST active Normal Saline Fl ush 0.9 % eCW1 ([facility]) Optifoam 4"X4" UNK 03/26/2020 12:00:00 AM EST active Optifoam 4"X4" eCW1 ([facility]) Normal Saline Flush 0.9 % Normal Saline Flush 0.9 % 03/26/2020 1 2:00:00 AM EST active Normal Saline Fl ush 0.9 % eCW1 ([facility]) Normal Saline Flush 0.9 % Normal Saline Flush 0.9 % 03/26/2020 1 2:00:00 AM EST active Normal Saline Fl ush 0.9 % eCW1 ([facility]) Gauze Sponge 4"X4" UNK 03/26/2020 12:00:00 AM EST active Gauze Sponge 4"X4" eCW1 ([facility]) Gauze Sponge 4"X4" UNK 03/26/2020 12:00:00 AM EST active Gauze Sponge 4"X4" eCW1 ([facility]) Gauze Sponge 4"X4" UNK 03/26/2020 12:00:00 AM EST active Gauze Sponge 4"X4" eCW1 ([facility]) Optifoam 4"X4" Optifoam 4"X4" 03/26/2020 12:00:00 AM EST active Optifoam 4"X4" eCW1 ([facility]) Optifoam 4"X4" Optifoam 4"X4" 03/26/2020 12:00:00 AM EST active Optifoam 4"X4" eCW1 ([facility]) Optifoam 4"X4" Optifoam 4"X4" 03/26/2020 12:00:00 AM EST active Optifoam 4"X4" eCW1 ([facility]) Normal Saline Flush 0.9 % Normal Saline Flush 0.9 % 03/26/2020 1 2:00:00 AM EST active Normal Saline Fl ush 0.9 % eCW1 ([facility]) Optifoam 4"X4" UNK 03/26/2020 12:00:00 AM EST active Optifoam 4"X4" eCW1 ([facility]) Normal Saline Flush 0.9 % Normal Saline Flush 0.9 % 03/26/2020 1 2:00:00 AM EST active Normal Saline Fl ush 0.9 % eCW1 ([facility]) Normal Saline Flush 0.9 % Normal Saline Flush 0.9 % 03/26/2020 1 2:00:00 AM EST active Normal Saline Fl ush 0.9 % eCW1 ([facility]) Optifoam 4"X4" Optifoam 4"X4" 03/26/2020 12:00:00 AM EST active Optifoam 4"X4" eCW1 ([facility]) Optifoam 4"X4" UNK 03/26/2020 12:00:00 AM EST active Optifoam 4"X4" eCW1 ([facility]) Normal Saline Flush 0.9 % Normal Saline Flush 0.9 % 03/26/2020 1 2:00:00 AM EST active Normal Saline Fl ush 0.9 % eCW1 ([facility]) Normal Saline Flush 0.9 % Normal Saline Flush 0.9 % 03/26/2020 1 2:00:00 AM EST active Normal Saline Fl ush 0.9 % eCW1 ([facility]) Normal Saline Flush 0.9 % Normal Saline Flush 0.9 % 03/26/2020 1 2:00:00 AM EST active Normal Saline Fl ush 0.9 % eCW1 ([facility]) Optifoam 4"X4" UNK 03/26/2020 12:00:00 AM EST active Optifoam 4"X4" eCW1 ([facility]) Optifoam 4"X4" UNK 03/26/2020 12:00:00 AM EST active Optifoam 4"X4" eCW1 ([facility]) Normal Saline Flush 0.9 % Normal Saline Flush 0.9 % 03/26/2020 1 2:00:00 AM EST active Normal Saline Fl ush 0.9 % eCW1 ([facility]) Gauze Sponge 4"X4" UNK 03/26/2020 12:00:00 AM EST active Gauze Sponge 4"X4" eCW1 ([facility]) Normal Saline Flush 0.9 % Normal Saline Flush 0.9 % 03/26/2020 1 2:00:00 AM EST active Normal Saline Fl ush 0.9 % eCW1 ([facility]) Normal Saline Flush 0.9 % Normal Saline Flush 0.9 % 03/26/2020 1 2:00:00 AM EST active Normal Saline Fl ush 0.9 % eCW1 ([facility]) Normal Saline Flush 0.9 % Normal Saline Flush 0.9 % 03/26/2020 1 2:00:00 AM EST active Normal Saline Fl ush 0.9 % eCW1 ([facility]) Gauze Sponge 4"X4" UNK 03/26/2020 12:00:00 AM EST active Gauze Sponge 4"X4" eCW1 ([facility]) Normal Saline Flush 0.9 % Normal Saline Flush 0.9 % 03/26/2020 1 2:00:00 AM EST active Normal Saline Fl ush 0.9 % eCW1 ([facility]) Gauze Sponge 4"X4" UNK 03/26/2020 12:00:00 AM EST active Gauze Sponge 4"X4" eCW1 ([facility]) Optifoam 4"X4" Optifoam 4"X4" 03/26/2020 12:00:00 AM EST active Optifoam 4"X4" eCW1 ([facility]) Optifoam 4"X4" UNK 03/26/2020 12:00:00 AM EST active Optifoam 4"X4" eCW1 ([facility]) Optifoam 4"X4" UNK 03/26/2020 12:00:00 AM EST active Optifoam 4"X4" eCW1 ([facility]) Gauze Sponge 4"X4" UNK 03/26/2020 12:00:00 AM EST active Gauze Sponge 4"X4" eCW1 ([facility]) Optifoam 4"X4" UNK 03/26/2020 12:00:00 AM EST active Optifoam 4"X4" eCW1 ([facility]) Normal Saline Flush 0.9 % Normal Saline Flush 0.9 % 03/26/2020 1 2:00:00 AM EST active Normal Saline Fl ush 0.9 % eCW1 ([facility]) Normal Saline Flush 0.9 % Normal Saline Flush 0.9 % 03/26/2020 1 2:00:00 AM EST active Normal Saline Fl ush 0.9 % eCW1 ([facility]) Gauze Sponge 4"X4" UNK 03/26/2020 12:00:00 AM EST active Gauze Sponge 4"X4" eCW1 ([facility]) Normal Saline Flush 0.9 % Normal Saline Flush 0.9 % 03/26/2020 1 2:00:00 AM EST active Normal Saline Fl ush 0.9 % eCW1 ([facility]) Gauze Sponge 4"X4" UNK 03/26/2020 12:00:00 AM EST active Gauze Sponge 4"X4" eCW1 ([facility]) Normal Saline Flush 0.9 % Normal Saline Flush 0.9 % 03/26/2020 1 2:00:00 AM EST active Normal Saline Fl ush 0.9 % eCW1 ([facility]) Normal Saline Flush 0.9 % Normal Saline Flush 0.9 % 03/26/2020 1 2:00:00 AM EST active Normal Saline Fl ush 0.9 % eCW1 ([facility]) Normal Saline Flush 0.9 % Normal Saline Flush 0.9 % 03/26/2020 1 2:00:00 AM EST active Normal Saline Fl ush 0.9 % eCW1 ([facility]) Gauze Sponge 4"X4" UNK 03/26/2020 12:00:00 AM EST active Gauze Sponge 4"X4" eCW1 ([facility]) Gauze Sponge 4"X4" K 03/26/2020 12:00:00 AM EST active Gauze Sponge 4"X4" eCW1 ([facility]) Gauze Sponge 4"X4" UNK 03/26/2020 12:00:00 AM EST active Gauze Sponge 4"X4" eCW1 ([facility]) Optifoam 4"X4" K 03/26/2020 12:00:00 AM EST active Optifoam 4"X4" eCW1 ([facility]) Normal Saline Flush 0.9 % Normal Saline Flush 0.9 % 03/26/2020 1 2:00:00 AM EST active Normal Saline Fl ush 0.9 % eCW1 ([facility]) Gauze Sponge 4"X4" K 03/26/2020 12:00:00 AM EST active Gauze Sponge 4"X4" eCW1 ([facility]) Gauze Sponge 4"X4" K 03/26/2020 12:00:00 AM EST active Gauze Sponge 4"X4" eCW1 ([facility]) Gauze Sponge 4"X4" K 03/26/2020 12:00:00 AM EST active Gauze Sponge 4"X4" eCW1 ([facility]) Optifoam 4"X4" K 03/26/2020 12:00:00 AM EST active Optifoam 4"X4" eCW1 ([facility]) Optifoam 4"X4" Optifoam 4"X4" 03/26/2020 12:00:00 AM EST active Optifoam 4"X4" eCW1 [facility] [facility] Gauze Sponge 4"X4" K 03/26/2020 12:00:00 AM EST active Gauze Sponge 4"X4" eCW1 ([facility]) Gauze Sponge 4"X4" K 03/26/2020 12:00:00 AM EST active Gauze Sponge 4"X4" eCW1 ([facility]) Gauze Sponge 4"X4" UNK 03/26/2020 12:00:00 AM EST active Gauze Sponge 4"X4" eCW1 ([facility]) Optifoam 4"X4" Optifoam 4"X4" 03/26/2020 12:00:00 AM EST active Optifoam 4"X4" eCW1 ([facility]) Normal Saline Flush 0.9 % Normal Saline Flush 0.9 % 03/26/2020 1 2:00:00 AM EST active Normal Saline Fl ush 0.9 % eCW1 ([facility]) Optifoam 4"X4" UNK 03/26/2020 12:00:00 AM EST active Optifoam 4"X4" eCW1 ([facility]) Optifoam 4"X4" UNK 03/26/2020 12:00:00 AM EST active Optifoam 4"X4" eCW1 ([facility]) Optifoam 4"X4" UNK 03/26/2020 12:00:00 AM EST active Optifoam 4"X4" eCW1 ([facility]) Optifoam 4"X4" UNK 03/26/2020 12:00:00 AM EST active Optifoam 4"X4" eCW1 ([facility]) ciclopirox 7.7 MG/ML Topical Cream [Loprox] Loprox 0.77 % Lo prox 0.77 % 03/20/2020 12:00:00 AM EST 1.0 {application} active Loprox 0.77 % eCW1 ([facility]) ciclopirox 7.7 MG/ML Topical Cream [Loprox] Loprox 0.77 % Lo prox 0.77 % 03/20/2020 12:00:00 AM EST 1.0 {application} active Loprox 0.77 % eCW1 ([facility]) ciclopirox 7.7 MG/ML Topical Cream [Loprox] Loprox 0.77 % Lo prox 0.77 % 03/20/2020 12:00:00 AM EST 1.0 {application} active Loprox 0.77 % eCW1 ([facility]) ciclopirox 7.7 MG/ML Topical Cream [Loprox] Loprox 0.77 % Lo prox 0.77 % 03/20/2020 12:00:00 AM EST 1.0 {application} active Loprox 0.77 % eCW1 ([facility]) ciclopirox 7.7 MG/ML Topical Cream [Loprox] Loprox 0.77 % Lo prox 0.77 % 03/20/2020 12:00:00 AM EST 1.0 {application} active Loprox 0.77 % eCW1 ([facility]) ciclopirox 7.7 MG/ML Topical Cream [Loprox] Loprox 0.77 % Lo prox 0.77 % 03/20/2020 12:00:00 AM EST 1.0 {application} active Loprox 0.77 % eCW1 ([facility]) ciclopirox 7.7 MG/ML Topical Cream [Loprox] Loprox 0.77 % Lo prox 0.77 % 03/20/2020 12:00:00 AM EST 1.0 {application} active Loprox 0.77 % eCW1 ([facility]) ciclopirox 7.7 MG/ML Topical Cream [Loprox] Loprox 0.77 % Lo prox 0.77 % 03/20/2020 12:00:00 AM EST 1.0 {application} active Loprox 0.77 % eCW1 ([facility]) ciclopirox 7.7 MG/ML Topical Cream [Loprox] Loprox 0.77 % Lo prox 0.77 % 03/20/2020 12:00:00 AM EST 1.0 {application} active Loprox 0.77 % eCW1 ([facility]) ciclopirox 7.7 MG/ML Topical Cream [Loprox] Loprox 0.77 % Lo prox 0.77 % 03/20/2020 12:00:00 AM EST 1.0 {application} active Loprox 0.77 % eCW1 ([facility]) ciclopirox 7.7 MG/ML Topical Cream [Loprox] Loprox 0.77 % Lo prox 0.77 % 03/20/2020 12:00:00 AM EST 1.0 {application} active Loprox 0.77 % eCW1 ([facility]) ciclopirox 7.7 MG/ML Topical Cream [Loprox] Loprox 0.77 % Lo prox 0.77 % 03/20/2020 12:00:00 AM EST 1.0 {application} active Loprox 0.77 % eCW1 ([facility]) ciclopirox 7.7 MG/ML Topical Cream [Loprox] Loprox 0.77 % Lo prox 0.77 % 03/20/2020 12:00:00 AM EST 1.0 {application} active Loprox 0.77 % eCW1 ([facility]) ciclopirox 7.7 MG/ML Topical Cream [Loprox] Loprox 0.77 % Lo prox 0.77 % 03/20/2020 12:00:00 AM EST 1.0 {application} active Loprox 0.77 % eCW1 ([facility]) ciclopirox 7.7 MG/ML Topical Cream [Loprox] Loprox 0.77 % Lo prox 0.77 % 03/20/2020 12:00:00 AM EST 1.0 {application} active Loprox 0.77 % eCW1 ([facility]) ciclopirox 7.7 MG/ML Topical Cream [Loprox] Loprox 0.77 % Lo prox 0.77 % 03/20/2020 12:00:00 AM EST 1.0 {application} active Loprox 0.77 % eCW1 ([facility]) ciclopirox 7.7 MG/ML Topical Cream [Loprox] Loprox 0.77 % Lo prox 0.77 % 03/20/2020 12:00:00 AM EST 1.0 {application} active Loprox 0.77 % eCW1 ([facility]) ciclopirox 7.7 MG/ML Topical Cream [Loprox] Loprox 0.77 % Lo prox 0.77 % 03/20/2020 12:00:00 AM EST 1.0 {application} active Loprox 0.77 % eCW1 ([facility]) ciclopirox 7.7 MG/ML Topical Cream [Loprox] Loprox 0.77 % Lo prox 0.77 % 03/20/2020 12:00:00 AM EST 1.0 {application} active Loprox 0.77 % eCW1 ([facility]) ciclopirox 7.7 MG/ML Topical Cream [Loprox] Loprox 0.77 % Lo prox 0.77 % 03/20/2020 12:00:00 AM EST 1.0 {application} active Loprox 0.77 % eCW1 ([facility]) ciclopirox 7.7 MG/ML Topical Cream [Loprox] Loprox 0.77 % Lo prox 0.77 % 03/20/2020 12:00:00 AM EST 1.0 {application} active Loprox 0.77 % eCW1 ([facility]) ciclopirox 7.7 MG/ML Topical Cream [Loprox] Loprox 0.77 % Lo prox 0.77 % 03/20/2020 12:00:00 AM EST 1.0 {application} active Loprox 0.77 % eCW1 ([facility]) ciclopirox 7.7 MG/ML Topical Cream [Loprox] Loprox 0.77 % Lo prox 0.77 % 03/20/2020 12:00:00 AM EST 1.0 {application} active Loprox 0.77 % eCW1 ([facility]) ciclopirox 7.7 MG/ML Topical Cream [Loprox] Loprox 0.77 % Lo prox 0.77 % 03/20/2020 12:00:00 AM EST 1.0 {application} active Loprox 0.77 % eCW1 ([facility]) ciclopirox 7.7 MG/ML Topical Cream [Loprox] Loprox 0.77 % Lo prox 0.77 % 03/20/2020 12:00:00 AM EST 1.0 {application} active Loprox 0.77 % eCW1 ([facility]) ciclopirox 7.7 MG/ML Topical Cream [Loprox] Loprox 0.77 % Lo prox 0.77 % 03/20/2020 12:00:00 AM EST 1.0 {application} active Loprox 0.77 % eCW1 ([facility]) ciclopirox 7.7 MG/ML Topical Cream [Loprox] Loprox 0.77 % Lo prox 0.77 % 03/20/2020 12:00:00 AM EST 1.0 {application} active Loprox 0.77 % eCW1 ([facility]) ciclopirox 7.7 MG/ML Topical Cream [Loprox] Loprox 0.77 % Lo prox 0.77 % 03/20/2020 12:00:00 AM EST 1.0 {application} active Loprox 0.77 % eCW1 ([facility]) ciclopirox 7.7 MG/ML Topical Cream [Loprox] Loprox 0.77 % Lo prox 0.77 % 03/20/2020 12:00:00 AM EST 1.0 {application} active Loprox 0.77 % eCW1 ([facility]) ciclopirox 7.7 MG/ML Topical Cream [Loprox] Loprox 0.77 % Lo prox 0.77 % 03/20/2020 12:00:00 AM EST 1.0 {application} active Loprox 0.77 % eCW1 ([facility]) ciclopirox 7.7 MG/ML Topical Cream [Loprox] Loprox 0.77 % Lo prox 0.77 % 03/20/2020 12:00:00 AM EST 1.0 {application} active Loprox 0.77 % eCW1 ([facility]) ciclopirox 7.7 MG/ML Topical Cream [Loprox] Loprox 0.77 % Lo prox 0.77 % 03/20/2020 12:00:00 AM EST 1.0 {application} active Loprox 0.77 % eCW1 ([facility]) ciclopirox 7.7 MG/ML Topical Cream [Loprox] Loprox 0.77 % Lo prox 0.77 % 03/20/2020 12:00:00 AM EST 1.0 {application} active Loprox 0.77 % eCW1 ([facility]) ciclopirox 7.7 MG/ML Topical Cream [Loprox] Loprox 0.77 % Lo prox 0.77 % 03/20/2020 12:00:00 AM EST 1.0 {application} active Loprox 0.77 % eCW1 ([facility]) tizanidine 2 MG Oral Tablet Tizanidine HCl 2 MG Tizanidine H Cl 2 MG 12/04/2019 12:00:00 AM EDT 1.0 {tablet_as_needed} active Tizanidine HCl 2 MG eCW1 ([facility]) tizanidine 2 MG Oral Tablet Tizanidine HCl 2 MG Tizanidine H Cl 2 MG 12/04/2019 12:00:00 AM EDT 1.0 {tablet_as_needed} active Tizanidine HCl 2 MG eCW1 ([facility]) tizanidine 2 MG Oral Tablet Tizanidine HCl 2 MG Tizanidine H Cl 2 MG 12/04/2019 12:00:00 AM EDT 1.0 {tablet_as_needed} active Tizanidine HCl 2 MG eCW1 ([facility]) tizanidine 2 MG Oral Tablet Tizanidine HCl 2 MG Tizanidine H Cl 2 MG 12/04/2019 12:00:00 AM EDT 1.0 {tablet_as_needed} active Tizanidine HCl 2 MG eCW1 ([facility]) tizanidine 2 MG Oral Tablet Tizanidine HCl 2 MG Tizanidine H Cl 2 MG 12/04/2019 12:00:00 AM EDT 1.0 {tablet_as_needed} active Tizanidine HCl 2 MG eCW1 ([facility]) tizanidine 2 MG Oral Tablet Tizanidine HCl 2 MG Tizanidine H Cl 2 MG 12/04/2019 12:00:00 AM EDT 1.0 {tablet_as_needed} active Tizanidine HCl 2 MG eCW1 ([facility]) Insurance Providers Payer name Policy type / Coverage type Policy ID Covered constitution party ID Covered constitution party's relationship to [place] Policy [place] Plan Information [address] [address] JODI Gonzalez IKE [id number] [place] [employer] [id number] [employer] [id number] [employer] [id number] ANSI-Medicare Part B [id number] ANSI-Medicare Part B [id number] ANSI-Medicare Part B [id number] ANSI-Medicare Part B [id number] ANSI-Medicare Part B [id number] ANSI-Medicare Part B [id number] ANSI-Medicare Part B [id number] MEDICARE BLUE PPO 306 [id number] SP [id number] [facility] HMO/PPO/POS/EPO/OTHER [id number] MEDICARE BLUE PPO [id number] SP [id number] ANSI-Medicare Part B [id number] ANSI-Medicare Part B [id number] Problems, Conditions, and Diagnoses Code Display Name Description Problem Type Effective Dates Data Source(s) I87.2 Stasis dermatitis Stasis dermatitis Problem 11/19/2020 12:00:00 AM EDT eCW1 ([facility]) L89.152 Pressure ulcer of sacral region, stage 2 Pressure ulcer of sacral region, stage 2 Problem 11/13/2020 01:00:00 AM EDT NETSMART ([facility]) 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 Problem 11/13/2020 01:00:00 AM EDT NETSMART ([facility]) 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 Ba rrett's esophagus without dysplasia Problem 11/13/2020 01:00:00 AM EDT NETSMART ([facility]) E55.9 Vitamin D deficiency, unspecified Vitamin D defi ciency, unspecified Problem 11/13/2020 01:00:00 AM EDT NETSMART ([facility]) F41.9 Anxiety disorder, unspecified Anxiety disorder, unspec ified Problem 11/13/2020 01:00:00 AM EDT NETSMART ([facility] ) E78.5 Hyperlipidemia, unspecified Hyperlipidemia, unspecifie d Problem 11/13/2020 01:00:00 AM EDT NETSMART ([facility] ) 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 Prob mirta 11/13/2020 01:00:00 AM EDT NETSMART ([facility] ) Z91.81 History of falling History of falling Problem 01:00:00 AM EDT NETSMART ([facility]) I87.312 [id number] 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 Problem 11/05/2020 12:00:00 AM EDT eCW1 ([facility]) L97.322 [id number] Non-pressure chronic ulcer of left ankle with fat layer exposed Problem 11/05/2020 12:00:00 AM EDT eCW1 ([facility]) L89.153 [id number] Pressure injury of coccygeal region, stag e 3 Problem 11/05/2020 12:00:00 AM EDT eCW1 ([facility]) L97.929 [id number] Non-pressure chronic ulcer of unspecified part of left lower leg with unspecified severity Problem 11/04/2020 12:00:00 AM EDT eCW 1 ([facility]) I83.029 [id number] 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 of unspecified site Problem 11/04/2020 12:00:00 AM EDT eCW1 ([facility]) R26.2 [id number] Special needs due to difficulty walking u nassisted Problem 11/04/2020 12:00:00 AM EDT eCW1 ([facility]) L89.312 Pressure ulcer of right buttock, stage 2 Pressure ulcer of right buttock, stage 2 Problem 09/19/2020 01:00:00 AM EDT NETSMART ([facility]) L89.321 Pressure ulcer of left buttock, stage 1 Pressure ulcer of left buttock, stage 1 Problem 09/19/2020 01:00:00 AM EDT NETSMART ([facility]) Z48.00 Encounter for change or removal of nonsu rgical wound dressing Encounter for change or removal of nonsurgical wound dressing Problem 01:00:00 AM EDT NETSMART ([facility] ) 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 Problem 09/19/2020 01:00:00 AM EDT NETSMART ([facility]) 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 Ba rrett's esophagus without dysplasia Problem 09/19/2020 01:00:00 AM EDT NETSMART ([facility]) E55.9 Vitamin D deficiency, unspecified Vitamin D defi ciency, unspecified Problem 09/19/2020 01:00:00 AM EDT NETSMART ([facility]) F41.9 Anxiety disorder, unspecified Anxiety disorder, unspec ified Problem 09/19/2020 01:00:00 AM EDT NETSMART ([facility] ) E78.5 Hyperlipidemia, unspecified Hyperlipidemia, unspecifie d Problem 09/19/2020 01:00:00 AM EDT NETSMART ([facility] ) 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 Prob mirta 09/19/2020 01:00:00 AM EDT NETSMART ([facility] ) Z91.81 History of falling History of falling Problem 01:00:00 AM EDT NETSMART ([facility]) L89.152 Pressure ulcer of sacral region, stage 2 Pressure ulcer of sacral region, stage 2 Problem 09/19/2020 01:00:00 AM EDT NETSMART ([facility]) L89.310 [id number] Pressure sore on buttocks, right, unstage able Problem 03/20/2020 12:00:00 AM EST eCW1 ([facility]) Surgeries/Procedures Procedure Description Date Indications Data Source(s) FINE NEEDLE ASPIRATION W/O IMAGING GUIDANCE 11/05/2020 12:00:00 AM EDT eCW1 ([facility]) Medication: Silver Nitrate Stick topically 11/05/2020 12:00:00 AM EDT eCW1 ([facility]) Results ID Date Data Source [id number] 12/31/2020 12:00:00 AM EST [facility] Name Value Range Interpretation Code Description Data Charline rce(s) Supporting Document(s) SARS-CoV2 Rapid Antigen Positive [facility] This lab was ordered by [facility] and reported by [facility]. ID Date Data Source VITAMIN D [id number] 04/04/2020 12:00:00 AM EST eCW1 ([facility]) Name Value Range Interpretation Code Description Data Charline rce(s) Supporting Document(s) 33.6 30.0-100.0 eCW1 ([facility]) ID Date Data Source LIPID PANEL (CARDIAC RISK) 04/04/2020 12:00:00 AM EST eCW1 ( [facility]) Name Value Range Interpretation Code Description Data Charline rce(s) Supporting Document(s) Cholesterol [Moles/volume] in Serum or Plasma 226 <200 eCW1 ([facility]) Cholesterol in HDL [Moles/volume] in Serum or Plasma 46 >40 eCW1 ([facility]) Cholesterol in LDL [Mass/volume] in Serum or Plasma by calculation 12 6 <100 eCW1 ([facility]) Triglyceride [Mass/volume] in Serum or Plasma by calculation 271 <150 eCW1 ([facility]) 180 eCW1 ([facility]) 4.913 <5 eCW1 ([facility]) ID Date Data Source FREE T4 & TSH PANEL 04/04/2020 12:00:00 AM EST eCW1 ([facility]) Name Value Range Interpretation Code Description Data Charline rce(s) Supporting Document(s) 1.940 0.358-3.740 eCW1 ([facility]) 0.87 0.76-1.46 eCW1 ([facility]) ID Date Data Source Comprehensive Metabolic Profile (CMP) 04/04/2020 12:00:00 AM EST eCW1 ([facility]) Name Value Range Interpretation Code Description Data Charline rce(s) Supporting Document(s) 95 70-100 eCW1 ([facility]) 17 7-18 eCW1 ([facility]) 0.81 0.55-1.30 eCW1 ([facility]) 29 21-32 eCW1 ([facility]) 4.2 3.5-5.1 eCW1 ([facility]) > 60.0 >39 eCW1 ([facility]) 104 98-107 eCW1 ([facility]) 137 136-145 eCW1 ([facility]) 14 7-37 eCW1 ([facility]) 89 45-117 eCW1 ([facility]) 21 12-78 eCW1 ([facility]) 9.3 8.8-10.2 eCW1 ([facility]) 7.4 6.4-8.2 eCW1 ([facility]) 0.9 1.2-2.2 eCW1 ([facility]) 0.6 0.2-1.0 eCW1 ([facility]) 3.6 3.2-5.2 eCW1 ([facility]) ID Date Data Source CBC - Complete Blood Count 04/04/2020 12:00:00 AM EST eCW1 ( [facility]) Name Value Range Interpretation Code Description Data Charline rce(s) Supporting Document(s) 5.9 4.0-10.0 eCW1 ([facility]) 4.55 4.00-5.40 eCW1 ([facility]) 13.8 12.0-15.5 eCW1 ([facility]) 96.0 80.0-96.0 eCW1 ([facility]) 43.7 36.0-47.0 eCW1 ([facility]) 31.6 32.0-36.5 eCW1 ([facility]) 30.3 27.0-33.0 eCW1 ([facility]) 13.0 11.5-14.5 eCW1 ([facility]) 181 150-450 eCW1 ([facility]) Procedure Social History Code Duration Value Status Description Data Source(s ) Smoking 12/02/2020 12:00:00 AM EDT Former Smoker completed Former Smoker eCW1 ([facility]) Smoking 12/02/2020 12:00:00 AM EDT Former Smoker completed Former Smoker eCW1 ([facility]) Smoking 12/02/2020 12:00:00 AM EDT Former Smoker completed Former Smoker eCW1 ([facility]) Smoking 12/02/2020 12:00:00 AM EDT Former Smoker completed Former Smoker eCW1 ([facility]) Smoking 12/02/2020 12:00:00 AM EDT Former Smoker completed Former Smoker eCW1 ([facility]) Smoking 12/02/2020 12:00:00 AM EDT Former Smoker completed Former Smoker eCW1 ([facility]) Smoking 12/02/2020 12:00:00 AM EDT Former Smoker completed Former Smoker eCW1 ([facility]) Smoking 11/21/2020 12:00:00 AM EDT Former Smoker completed Former Smoker eCW1 ([facility]) Smoking 11/21/2020 12:00:00 AM EDT Former Smoker completed Former Smoker eCW1 ([facility]) Smoking 11/21/2020 12:00:00 AM EDT Former Smoker completed Former Smoker eCW1 ([facility]) Smoking 11/05/2020 12:00:00 AM EDT Former Smoker completed Former Smoker eCW1 ([facility]) Smoking 11/05/2020 12:00:00 AM EDT Former Smoker completed Former Smoker eCW1 ([facility]) Smoking 11/05/2020 12:00:00 AM EDT Former Smoker completed Former Smoker eCW1 ([facility]) Smoking 09/03/2020 12:00:00 AM EDT Former Smoker completed Former Smoker eCW1 ([facility]) Smoking 09/03/2020 12:00:00 AM EDT Former Smoker completed Former Smoker eCW1 ([facility]) Smoking 09/03/2020 12:00:00 AM EDT Former Smoker completed Former Smoker eCW1 ([facility]) Smoking 09/03/2020 12:00:00 AM EDT Former Smoker completed Former Smoker eCW1 ([facility]) Smoking 09/03/2020 12:00:00 AM EDT Former Smoker completed Former Smoker eCW1 ([facility]) Smoking 09/03/2020 12:00:00 AM EDT Former Smoker completed Former Smoker eCW1 ([facility]) Smoking 09/03/2020 12:00:00 AM EDT Former Smoker completed Former Smoker eCW1 ([facility]) Smoking 06/18/2020 12:00:00 AM EDT Former Smoker completed Former Smoker eCW1 ([facility]) Smoking 06/18/2020 12:00:00 AM EDT Former Smoker completed Former Smoker eCW1 ([facility]) Smoking 06/18/2020 12:00:00 AM EDT Former Smoker completed Former Smoker eCW1 ([facility]) Smoking 04/04/2020 12:00:00 AM EST Former Smoker completed Former Smoker eCW1 ([facility]) Smoking 04/04/2020 12:00:00 AM EST Former Smoker completed Former Smoker eCW1 ([facility]) Smoking 04/04/2020 12:00:00 AM EST Former Smoker completed Former Smoker eCW1 ([facility]) Smoking 04/04/2020 12:00:00 AM EST Former Smoker completed Former Smoker eCW1 ([facility]) Smoking 04/04/2020 12:00:00 AM EST Former Smoker completed Former Smoker eCW1 ([facility]) Smoking 04/04/2020 12:00:00 AM EST Former Smoker completed Former Smoker eCW1 ([facility]) Smoking 03/20/2020 12:00:00 AM EST Former Smoker completed Former Smoker eCW1 ([facility]) Smoking 03/20/2020 12:00:00 AM EST Former Smoker completed Former Smoker eCW1 ([facility]) Smoking 03/20/2020 12:00:00 AM EST Former Smoker completed Former Smoker eCW1 ([facility]) Smoking 03/20/2020 12:00:00 AM EST Former Smoker completed Former Smoker eCW1 ([facility]) Smoking 03/20/2020 12:00:00 AM EST Former Smoker completed Former Smoker eCW1 ([facility]) Smoking 01/18/2020 12:00:00 AM EST Former Smoker completed Former Smoker eCW1 ([facility]) Smoking 01/18/2020 12:00:00 AM EST Former Smoker completed Former Smoker eCW1 ([facility]) Smoking 01/18/2020 12:00:00 AM EST Former Smoker completed Former Smoker eCW1 ([facility]) Vital Signs ID Date Data Source UNK Name Value Range Interpretation Code Description Data Source(s) Body weight 235 [lb_av] 235 [lb_av] [facility]CW[facility] Body height 67 [in_i] 67 [in_i] eCW1 ([facility]) Body mass index (BMI) [Ratio] 36.80 kg/m2 36.80 kg/m2 eCW1 ([facility]) Heart rate 74 /min 74 /min eCW1 ([facility]) Respiratory rate 18 /min 18 /min eCW1 ([facility]) Body temperature 98.0 [degF] 98.0 [degF] eCW1 ( [facility]) Systolic blood pressure 164 mm[Hg] 164 mm[Hg] e CW1 ([facility]) Diastolic blood pressure 72 mm[Hg] 72 mm[Hg] eCW1 ([facility]) Body height 67 [in_i] 67 [in_i] eCW1 ([facility]) Body weight 235 [lb_av] 235 [lb_av] eCW1 ([facility] Body weight 106.6 kg 106.6 kg eCW1 ([facility]) Body mass index (BMI) [Ratio] 36.80 kg/m2 36.80 kg/m2 eCW1 ([facility]) Heart rate 70 /min 70 /min eCW1 ([facility]) Respiratory rate 18 /min 18 /min eCW1 ([facility]) Body temperature 95.4 [degF] 95.4 [degF] eCW1 ( [facility]) Systolic blood pressure 120 mm[Hg] 120 mm[Hg] e CW1 ([facility]) Diastolic blood pressure 65 mm[Hg] 65 mm[Hg] eCW1 ([facility]) Body weight 235 [lb_av] 235 [lb_av] eCW1 ([facility] Body height 67 [in_i] 67 [in_i] eCW1 ([facility]) Body mass index (BMI) [Ratio] 36.80 kg/m2 36.80 kg/m2 eCW1 ([facility]) Heart rate 76 /min 76 /min eCW1 ([facility]) Respiratory rate 20 /min 20 /min eCW1 ([facility]) Body temperature 98.2 [degF] 98.2 [degF] eCW1 ( [facility]) Systolic blood pressure 128 mm[Hg] 128 mm[Hg] e CW1 ([facility]) Diastolic blood pressure 72 mm[Hg] 72 mm[Hg] eCW1 ([facility]) Body weight 235 [lb_av] 235 [lb_av] eCW1 ([facility]) Body height 67 [in_i] 67 [in_i] eCW1 ([facility]) Body mass index (BMI) [Ratio] 36.80 kg/m2 36.80 kg/m2 eCW1 ([facility]) Heart rate 70 /min 70 /min eCW1 ([facility]) Systolic blood pressure 110 mm[Hg] 110 mm[Hg] e CW1 ([facility]) Diastolic blood pressure 60 mm[Hg] 60 mm[Hg] eCW1 ([facility]) Body weight 235 [lb_av] 235 [lb_av] eCW1 ([facility]) Body height 67 [in_i] 67 [in_i] eCW1 ([facility]) Body mass index (BMI) [Ratio] 36.80 kg/m2 36.80 kg/m2 eCW1 ([facility] [facility] Heart rate 70 /min 70 /min eCW1 ([facility]) Respiratory rate 20 /min 20 /min eCW1 ([facility]) Body temperature 97.7 [degF] 97.7 [degF] eCW1 ( [facility]) Systolic blood pressure 120 mm[Hg] 120 mm[Hg] e CW1 ([facility]) Diastolic blood pressure 60 mm[Hg] 60 mm[Hg] eCW1 ([facility]) Body weight 235 [lb_av] 235 [lb_av] [facility]CW[facility] Body height 67 [in_i] 67 [in_i] eCW1 ([facility]) Body mass index (BMI) [Ratio] 36.80 kg/m2 36.80 kg/m2 eCW1 ([facility]) Heart rate 86 /min 86 /min eCW1 ([facility]) Respiratory rate 18 /min 18 /min eCW1 ([facility]) Body temperature 96.7 [degF] 96.7 [degF] eCW1 ( [facility]) Systolic blood pressure 138 mm[Hg] 138 mm[Hg] e CW1 ([facility]) Diastolic blood pressure 72 mm[Hg] 72 mm[Hg] eCW1 ([facility]) Body weight 235 [lb_av] 235 [lb_av] eCW1 ([facility]) Body height 67 [in_i] 67 [in_i] eCW1 ([facility]) Body mass index (BMI) [Ratio] 36.80 kg/m2 36.80 kg/m2 eCW1 ([facility]) Heart rate 72 /min 72 /min eCW1 ([facility]) Respiratory rate 18 /min 18 /min eCW1 ([facility]) Body temperature 97.8 [degF] 97.8 [degF] eCW1 ( [facility]) Systolic blood pressure 132 mm[Hg] 132 mm[Hg] e CW1 ([facility]) Diastolic blood pressure 74 mm[Hg] 74 mm[Hg] eCW1 ([facility]) Body weight 235 [lb_av] 235 [lb_av] eCW1 ([facility]) Body height 67 [in_i] 67 [in_i] eCW1 ([facility]) Respiratory rate 20 /min 20 /min eCW1 ([facility]) Body temperature 97 [degF] 97 [degF] eCW1 ([facility]) Systolic blood pressure 124 mm[Hg] 124 mm[Hg] e CW1 ([facility]) Diastolic blood pressure 70 mm[Hg] 70 mm[Hg] eCW1 ([facility]) Body mass index (BMI) [Ratio] 36.80 kg/m2 36.80 kg/m2 eCW1 ([facility]) Heart rate 76 /min 76 /min eCW1 ([facility]) Patient Treatment Plan of Care Planned Activity Planned Date Details Description Data Source (s) Co-Enzyme Q10 200 MG 10/09/2020 01:00:00 AM EDT NETSMART ([facility]) May Have - 10/02/2020 12:00:00 AM EDT e CW1 ([facility]) May Have - 10/02/2020 12:00:00 AM EDT e CW1 ([facility]) May Have - 10/02/2020 12:00:00 AM EDT e CW1 ([facility]) May Have - 09/24/2020 12:00:00 AM EDT e CW1 ([facility]) May Have - 09/24/2020 12:00:00 AM EDT e CW1 ([facility]) May Have - 09/24/2020 12:00:00 AM EDT e CW1 ([facility]) May Have - 09/24/2020 12:00:00 AM EDT e CW1 ([facility]) May Have - 09/24/2020 12:00:00 AM EDT e CW1 ([facility]) [place] 3 1200 MG 09/19/2020 01:00:00 AM EDT NETSMART ([facility]) Vitamin C 1000 MG 09/19/2020 01:00:00 AM EDT NETSMART ([facility]) [place] [facility] [place] Extract 250 MG 09/19/2020 01:00:00 AM [facility] Garlic 1500 1500 MG 09/19/2020 01:00:00 AM [facility]T [facility]) Omeprazole 20 MG 09/19/2020 01:00:00 AM EDT NETSMART ([facility]) Calcium 600+D 600-400 MG-UNIT 09/19/2020 01:00:00 AM EDT NETSMART ([facility]) Vitamin D (Cholecalciferol) 1000 UNIT 09/19/2020 01:00:00 AM EDT [facility] Furosemide 20 MG 09/19/2020 01:00:00 AM EDT [facility]) Escitalopram Oxalate 10 MG 09/19/2020 01:00:00 AM EDT [facility]) Gabapentin 300 MG 09/19/2020 01:00:00 AM EDT [facility] ([facility]) tiZANidine HCl 2 MG 09/19/2020 [facility] Tylenol 8 Hour Arthritis Pain 650 MG 09/19/2020 01:00:00 AM EDT [facility]) Turmeric Curcumin 500 MG 09/19/2020 01:00:00 AM EDT [facility]) Bacitracin 500 UNIT/GM 09/19/2020 01:00:00 AM EDT [facility]) Normal Saline Flush 0.9 % 03/26/2020 12:00:00 AM EST eCW1 ([facility]) Gauze Sponge 4"X4" 03/26/2020 12:00:00 AM EST eCW1 ([facility]) Optifoam 4"X4" 03/26/2020 12:00:00 AM EST eCW1 ([facility]) Normal Saline Flush 0.9 % 03/26/2020 12:00:00 AM EST eCW1 ([facility]) Gauze Sponge 4"X4" 03/26/2020 12:00:00 AM EST eCW1 ([facility]) Gauze Sponge 4"X4" 03/26/2020 12:00:00 AM EST eCW1 ([facility]) Optifoam 4"X4" 03/26/2020 12:00:00 AM EST eCW1 ([facility]) Normal Saline Flush 0.9 % 03/26/2020 12:00:00 AM EST eCW1 ([facility]) Gauze Sponge 4"X4" 03/26/2020 12:00:00 AM EST eCW1 ([facility]) Optifoam 4"X4" 03/26/2020 12:00:00 AM EST eCW1 ([facility]) Normal Saline Flush 0.9 % 03/26/2020 12:00:00 AM EST eCW1 ([facility]) Gauze Sponge 4"X4" 03/26/2020 12:00:00 AM EST eCW1 ([facility]) Optifoam 4"X4" 03/26/2020 12:00:00 AM EST eCW1 ([facility]) Normal Saline Flush 0.9 % 03/26/2020 12:00:00 AM EST eCW1 ([facility]) ciclopirox 7.7 MG/ML Topical Cream [Loprox] 03/20/2020 12:00:00 AM EST eCW1 ([facility]) ciclopirox 7.7 MG/ML Topical Cream [Loprox] 03/20/2020 12:00:00 AM EST eCW1 ([facility]) ciclopirox 7.7 MG/ML Topical Cream [Loprox] 03/20/2020 12:00:00 AM EST eCW1 ([facility]) ciclopirox 7.7 MG/ML Topical Cream [Loprox] 03/20/2020 12:00:00 AM EST eCW1 ([facility]) ciclopirox 7.7 MG/ML Topical Cream [Loprox] 03/20/2020 12:00:00 AM EST eCW1 ([facility]) tizanidine 2 MG Oral Tablet 12/04/2019 12:00:00 AM EDT eCW1 ([facility]) tizanidine 2 MG Oral Tablet 12/04/2019 12:00:00 AM EDT eCW1 ([facility]) tizanidine 2 MG Oral Tablet 12/04/2019 12:00:00 AM EDT eCW1 ([facility]) tizanidine 2 MG Oral Tablet 12/04/2019 12:00:00 AM EDT eCW1 ([facility]) tizanidine 2 MG Oral Tablet 12/04/2019 12:00:00 AM EDT eCW1 ([facility]) tizanidine 2 MG Oral Tablet 12/04/2019 12:00:00 AM EDT eCW1 ([facility])
--- NOTE | 2021-01-08 14:10 | REP ---
INDICATION: Coronavirus workup. COMPARISON: 07/24/2015. TECHNIQUE: Single portable AP view of the chest was performed. FINDINGS: There is dense infiltrate in the left lung base. There is mild right perihilar infiltrate. Heart size is not well evaluated. There is tortuosity of the thoracic aorta. The visualized osseous structures appear intact. IMPRESSION: Dense infiltrate left lung base. Mild right perihilar infiltrate. <Electronically signed by Zohaib Mayes > 01/08/21 [id number]
[2021-01-08] MEDS ORDERED: LIDOCAINE 2% 5ML JELLY UROJET TOP ONE (14:20)
[2021-01-08] MEDS ORDERED: ACETAMINOPHEN TAB 650MG DOSE (2X325MG) PO ONE (14:20)
[2021-01-08] MEDS ORDERED: dexameTHASONE 20MG/5ML VIAL (J1100 PER 1MG) IV ONE (15:20)
[2021-01-08 15:38] LABS: BASO % 0.5 % (0.0-1.0); EOS # 0.1 10^3/uL (0.0-0.5); EOS % 1.2 % (0.0-3.0); HEMOGLOBIN 13.2 g/dl (12.0-15.5); LYMPH # 1.3 10^3/uL (1.5-5.0); LYMPH % 19.8 % (24.0-44.0); MEAN CORPUSCULAR HEMOGLOBIN 29.7 pg (27.0-33.0); MEAN CORPUSCULAR HGB CONC 31.4 g/dl (32.0-36.5); MEAN CORPUSCULAR VOLUME 94.4 fl (80.0-96.0); MONO # 0.5 10^3/uL (0.0-0.8); MONO % 7.9 % (2.0-8.0); NEUTROPHILS # 4.6 10^3/uL (1.5-8.5); PLATELET COUNT, AUTOMATED 265 10^3/uL (150-450); RED BLOOD COUNT 4.45 10^6/uL (4.00-5.40); WHITE BLOOD COUNT 6.6 10^3/uL (4.0-10.0)
[2021-01-08 16:05] LABS: ALBUMIN 3.1 GM/DL (3.2-5.2); ALT/SGPT 25 U/L (12-78); BILIRUBIN,TOTAL 0.6 MG/DL (0.2-1.0); BLOOD UREA NITROGEN 13 MG/DL (7-18); CARBON DIOXIDE LEVEL 28 MEQ/L (21-32); CHLORIDE LEVEL 104 MEQ/L (98-107); CREATININE FOR GFR 0.65 MG/DL (0.55-1.30); GLOMERULAR FILTRATION RATE > 60.0 (>39); GLUCOSE, FASTING 86 MG/DL (70-100); LDH LACTATE DEHYDROGENASE 146 U/L (84-246); POTASSIUM SERUM 4.1 MEQ/L (3.5-5.1); SODIUM LEVEL 139 MEQ/L (136-145); TOTAL PROTEIN 7.6 GM/DL (6.4-8.2)
--- NOTE | 2021-01-08 16:07 | HPEPDOC ---
[facility] Medical History & Physical Date of Admission Jan 08, 2021 Date of Service: Jan 08, 2021 Attending Physician: Kneia Dickens MD History and Physical CHIEF COMPLAINT: Increasing weakness HISTORY OF PRESENT ILLNESS: Patient is a 80-year-old female past medical history of GERD, Ruggiero's esophagu s, Covid positive diagnosis, history of coccyx and ankle decubiti, hypertension, chronic progressive degenerative spastic paralysis, idiopathic (diagnosed 1984), hyperlipidemia, chronic pain/peripheral neuropathy, Vitamin D deficiency who presented to [facility] emergency room with a chief complaint of increased weakness, inability to care for self at home. The patient states her and her were recently tested positive for COVID-19 (12/31/2020) as outpatient. She received a monoclonal antibody infusion 01/02/2021. The patient has had increased sinus congestion, nonproductive cough, increased weakness, increased shortness of breath with exertion, increased anterior chest pressure with increased shortness of breath, cold chills and hot flashes since diagnosis. She states her was admitted to the hospital on 01/07/2021 leaving her without a caregiver at the house. Since he has been admitted the patient is unable to do anything for herself as she is bedbound and requires assistance for all activities of daily living. The patient does not walk and uses a wheelchair with assistance by her at baseline. Today she called 911 and was brought to [facility] emergency room to help assist with her situation. In the emergency room vital signs are stable, patient was saturating at 92% on room air upon initial presentation. Sometime into her stay in the ER the patient's oxygen saturation dropped down to 87% she was placed on 2 L nasal cannula and oxygen saturations increased to 93%. Chest x-ray showed bilateral pneumonia. CBC and CMP unremarkable, trop POC 0.22. High-sensitivity troponin was 457. ECG showed normal sinus rhythm without ST or T wave changes from prior ECG. Patient states she feels unsafe returning home without her who is currently a Covid inpatient and who is her primary caregiver. The patient was admitted as acute inpatient for inability to care for self, COVID-19 infection. REVIEW OF SYSTEMS: Neg except for what is mentioned above PAST MEDICAL HISTORY: GERD Ruggiero's esophagus COVID 19 + (dx 12/31/20, s/p monoclonal ab infusion 01/02/21) Coccyx decubiti, chronic HTN Chronic progressive degenerative spastic paralysis, idiopathic (diagnosed 1984) HLD Vitamin D deficiency PAST SURGICAL HISTORY: Tubal ligation D&C Upper endoscopy Colonoscopy 2006, 2012 FAMILY HISTORY: FATHER: , UNKNOWN HX MOTHER: 90 YRS, CHF SIBLINGS: TWIN SISTER AT 72 - [place], CIRRHOSIS, COPD, SISTER WITH BREAST CANCER - LIVING 2 SISTER(S) - HEALTHY. 1 SON , 2 DAUGHTER(S) - HEALTHY SOCIAL HISTORY: Former smoker, quit age 41. Bedbound, uses wheelchair with assistance. Lives with her who is her caregiver. No home health or health aides. DNR/DNI. ALLERGIES: Please see below. HOME MEDICATIONS: Please see below. PHYSICAL EXAMINATION: VS: 97.8, 69, 16, 117/53, 94% on 2 LNC CONSTITUTIONAL: uncomfortable , AAO x 3 EYES: PERRLA, EOM intact, corrective lenses in place HENT, MOUTH: Normocephalic, atraumatic, moist mucous membranes NECK: SUPPLE, no JVD, no lymphadenopathy, no carotid bruit CV: Regular rate and rhythm, S1S2 normal, no murmurs/rubs/gallops RESPIRATORY: Clear to auscultation bilaterally, no rales/rhonchi/wheezes GI: obese abd. BS positive in 4 quadrants, soft, nontender, nondistended, no rebound or guarding, no organomegaly : Deferred MUSCULOSKELETAL: Normal ROM. No cyanosis, clubbing, swelling, joint deformity, extremity edema INTEGUMENTARY: Redness on b/l buttocks near coccyx, well healing decubiti b/l in this area as well. Intact, no rashes, no lesions, no erythema NEUROLOGIC:Rigidity of the b/l lower ext with pain with movement of them (needs help straightening legs out as could not do for self)- baseline for patient when she does not get her medications as scheduled. Cranial Nerves II-XII are intact, no focal deficits PSYCHIATRIC: Mood and affect are normal LABORATORY DATA: Please see below IMAGING: CXR: Dense infiltrate left lung base. Mild right perihilar infiltrate. ASSESSMENT: 80-year-old female past medical history of GERD, Ruggiero's esophagus, Covid positive diagnosis, history of coccyx and ankle decubiti, hypertension, chronic progressive degenerative spastic paralysis, idiopathic (diagnosed 1984), hyperlipidemia, chronic pain/peripheral neuropathy, Vitamin D deficiency admitted as acute inpatient for inability to care for self, COVID-19 infection, r/o superimposed bacterial PNA. PLAN: Debility, acute on chronic and 2/2 to chronic progressive degenerative spastic paralysis, idiopathic (diagnosed 1984) with COVID 19 infection -Relies on to do all activities of daily living with her, he is currently hospitalized and she is unable to care for self -Worsened since infection has been present -PT/OT, treatment of chronic and acute illnesses below -Optimize nutritional status COVID-19 infection, rule out superimposed bacterial pneumonia -Initially was on room air saturating well; however, with movement desaturated to 87% on room air and was placed on 2 L nasal cannula. -Currently saturating well on 2 L nasal cannula -Chest x-ray above -Procalcitonin, D-dimer, PT/INR pending -Follow-up sputum culture, blood cultures -Continue with doxycycline, ceftriaxone but if pro calcitonin is low then stop. -Continue with dexamethasone, remdesivir, incentive spirometer every 2 hours while awake, awake pronation if able with handicap, albuterol as needed, Mucinex, supplemental O2 as needed -Covid labs per protocol -Precautions per Covid protocol Elevated troponin possibly 2/2 ischemic demand/ hypoxia -Unknown if the patient was also going hypoxemic at home at times -We will cycle troponins throughout tonight and tomorrow -ECG unremarkable for T wave or ST changes -Telemetry Chronic progressive degenerative spastic paralysis, idiopathic (diagnosed 1984) -Mostly bedbound, uses wheelchair with assistance as well -All activities of daily living performed by at home -Continue with home gabapentin, tizanidine GERD / Ruggiero's esophagus -PPI Coccyx decubiti, chronic -Wound care -Follows with Dr. Jordan as outpatient HTN -Continue with home Lasix HLD -Not on statin med Vitamin D deficiency -Not on vitamin supplement DVT prophylaxis -Lovenox DISPOSITION: Admitted as acute inpatient. PT consulted to see. Will update PFS on current issues with returning home in the AM. Full Vital Signs Vital Signs Date Time Temp Pulse Resp B/P (MAP) Pulse Ox O2 Delivery O2 Flow Rate FiO2 01/08/21 12:19 97.8 69 16 117/53 (74) 92 Room Air Laboratory Data Labs 24H Laboratory Tests 2 01/08/21 13:18: Immature Granulocyte % (Auto) 0.6, Neutrophils (%) (Auto) 70.0H, Lymphocytes (%) (Auto) 19.8L, Monocytes (%) (Auto) 7.9, Eosinophils (%) (Auto) 1.2, Basophils (%) (Auto) 0.5, Neutrophils # (Auto) 4.6, Lymphocytes # (Auto) 1.3L, Monocytes # (Auto) 0.5, Eosinophils # (Auto) 0.1, Basophils # (Auto) 0.0, Nucleated Red Blood Cells % (auto) 0.0 01/08/21 15:12: Anion Gap 7L, Glomerular Filtration Rate > 60.0, Calcium Level 9.0, Total Biliru bin 0.6, Aspartate Amino Transf (AST/SGOT) 22, Alanine Aminotransferase (ALT/SGPT) 25, Alkaline Phosphatase 94, Lactate Dehydrogenase 146, Total Protein 7.6, Albumin 3.1L, Albumin/Globulin Ratio 0.7L 01/08/21 15:16: Urine Color YELLOW, Urine Appearance CLEAR, Urine pH 7.0, Urine Specific [place] 1.012, Urine Protein NEGATIVE, Urine Glucose (UA) NEGATIVE, Urine Ketones NEGATIVE, Urine Blood NEGATIVE, Urine Nitrite NEGATIVE, Urine Bilirubin NEGATIVE, Urine Urobilinogen 0.2, Urine Leukocyte Esterase NEGATIVE, Urine WBC (Auto) 0, Urine RBC (Auto) 2, Urine Hyaline Casts (Auto) 0, Urine Bacteria (Auto) NEGATIVE, Urine Squamous Epithelial Cells 0, Urine Mucus (Auto) SMALL, Urine Sperm (Auto) , Lactic Acid Level 1.0 01/08/21 15:20: POC Troponin I (Misc) 0.22H CBC/BMP Laboratory Tests 01/08/21 13:18 01/08/21 15:12 Home Medications Miscellaneous Medications Ciclopirox Olamine (Ciclopirox) 15 Gm Cream..g. Furosemide (Furosemide) 20 Mg Tablet Gabapentin (Gabapentin) 300 Mg Capsule Omeprazole (Omeprazole) 20 Mg Capsule. Tizanidine HCl (Tizanidine HCl) 2 Mg Tablet Allergies Coded Allergies: No Known Allergies (Unverified , 01/08/21) A-FIB/CHADSVASC A-FIB History Current/History of A-Fib/PAF?: No Current PO Anticoag Therapy: No Age/Risk Factor Scoring CHADSVASC: CHADSVASC Response (Comments) Value Gender Risk Factor Female 1 Hx of CHF No 0 Hx of HTN Yes 1 Hx of Stroke/TIA/or VTE No 0 Hx of Diabetes No 0 Hx of Vascular Disease No 0 Total 2 Treatment Treatment ordered: Other Other anticoagulant ordered: Kenia Garcia MD Jan 08, 2021 16:07
[2021-01-08 16:34] LABS: CK-MB VALUE MASS 2.1 NG/ML (<3.6); MB/CK RELATIVE INDEX 3.23 (< OR =4)
[2021-01-08] MEDS ORDERED: ALBUTEROL 90 MCG/ACT 8GM HFA INHALER INH PRN (17:15)
--- OUTSIDE RECORDS SUMMARY | 2021-01-08 17:15 | CCD ---
Author Author [facility] Address Unknown Phone Unavailable Support Name Relationship Address Phone ARCHANA DONALD Next Of Kin [address] [place] [address] RE Next Of Kin Unknown Unavailable RETIRED Next Of Kin Unknown Andria ZAMAN Next Of Kin [address] [place] [address] Archana Donald ECON Unknown Unavailable Andria ZAMAN ECON [address] [place] [address] Unavailable Re-disclosure Warning The records that you [...] is protected by Article 27-F of the [facility] Public Health law. If you continue you may have access to information: Regarding HIV / AIDS; Provided by facilities licensed or operated by the [facility] Office of Mental Health; or Provided by the [facility] Office for People With Developmental Disabilities. If such information is present, then the following [facility] mandated warning applies: This information has [...] law may result in a fine or assisted sentence or both. A general authorization for the release of medical or other information is NOT sufficient authorization for further disc losure. Allergies and Adverse Reactions Type Description Substance Reaction Status Data Source(s ) lapitor, fenoglide lapitor, fenoglide lapitor, fenoglide a ctive NETSMART ([facility]) Encounters Encounter Providers Location Date Indications Data Source(s ) Unknown [address] [facility] [id number] 01/06/2021 12:00:00 AM EST eCW1 ([facility]) Unknown [address] [facility] [id number] 12/31/2020 12:00:00 AM EST eCW1 ([facility]) Unknown [address] [facility] [id number] 12/31/2020 12:00:00 AM EST eCW1 ([facility]) Unknown [address] [facility] [id number] 12/30/2020 12:00:00 AM EST eCW1 ([facility]) Unknown [address] [facility] [address] 12/22/2020 12:00:00 AM EST eCW1 ([facility]) TeleMedicine Est. Pt. Level 1 [address] [place] [address] 12/03/2020 12:00:00 AM EDT eCW1 ([facility]) Unknown [address] [facility] [address] 12/01/2020 12:00:00 AM EDT eCW1 ([facility]) Unknown [address] [facility] [address] 11/26/2020 12:00:00 AM EDT eCW1 ([facility]) Unknown [address] [facility] [address] 11/25/2020 12:00:00 AM EDT eCW1 ([facility]) (WND STRTCH) Stretcher Required Patients [address] [place] [address] 11/21/2020 12:00:00 AM EDT eCW1 ([facility]) Unknown [address] [facility] [place] [address] 11/05/2020 12:00:00 AM EDT eCW1 ([facility]) (WND NP120) New Patient 120 Min [address] [place] [address] 11/05/2020 12:00:00 AM EDT eCW1 ([facility]) Outpatient [address] [facility] [place] [address] 11/04/2020 12:00:00 AM EDT eCW1 ([facility]) Unknown [address] [facility] [place] [address] 10/23/2020 12:00:00 AM EDT eCW1 ([facility]) Unknown [address] [facility] [place] [address] 10/02/2020 12:00:00 AM EDT eCW1 ([facility]) Unknown [address] [facility] [place] [address] 10/01/2020 12:00:00 AM EDT eCW1 ([facility]) Unknown [address] [facility] [place] [address] 09/29/2020 12:00:00 AM EDT eCW1 ([facility]) Unknown [address] [facility] [place] [address] 09/22/2020 12:00:00 AM EDT eCW1 ([facility]) 09/19/2020 01:00:00 AM EDT - 021 10:13:31 AM EDT NETSMART ([facility]) Unknown [address] [facility] [place] [address] 09/15/2020 12:00:00 AM EDT eCW1 ([facility]) TeleMedicine Est. Pt. Level 2 [address] [place] [address] 09/03/2020 12:00:00 AM EDT eCW1 ([facility]) [place] [address] [facility] [place] [address] 08/26/2020 12:00:00 AM EDT eCW1 ([facility]) [place] [address] [facility] [place] [address] 08/20/2020 12:00:00 AM EDT eCW1 ([facility]) TeleMedicine Est. Pt. Level 2 [address] [place] [address] 06/18/2020 12:00:00 AM EDT eCW1 ([facility]) [place] [address] [facility] [place] [address] 06/02/2020 12:00:00 AM EDT eCW1 ([facility]) [place] [address] [facility] [place] [address] 05/12/2020 12:00:00 AM EDT eCW1 ([facility]) [place] [address] [facility] [place] [address] 04/17/2020 12:00:00 AM EST eCW1 ([facility] [place] [address] [facility] [place] [address] 04/15/2020 12:00:00 AM EST eCW1 ([facility]) [place] [address] [facility] [place] [address] 04/09/2020 12:00:00 AM EST eCW1 ([facility]) Office Visit, Est Pt., Level 4 PC [address] [place] [address] 04/04/2020 12:00:00 AM EST eCW1 ([facility]) [place] [address] [facility] [place] [address] 03/27/2020 12:00:00 AM EST eCW1 ([facility]) [place] [address] [facility] [place] [address] 03/26/2020 12:00:00 AM EST eCW1 ([facility]) [place] [address] [facility] [place] [address] 03/24/2020 12:00:00 AM EST [facility]CW1 ([facility]) [place] [address] [facility] [place] [address] 03/21/2020 12:00:00 AM EST eCW1 ([facility]) [place] [address] [facility] [place] [address] 03/20/2020 12:00:00 AM EST eCW1 ([facility]) [place] [address] [facility] [place] [address] 01/25/2020 12:00:00 AM EST eCW1 ([facility]) [place] [address] [facility] [place] [address] 01/23/2020 12:00:00 AM EST eCW1 ([facility]) [place] [address] [facility] [place] [address] 01/18/2020 12:00:00 AM EST eCW1 ([facility]) [place] [address] [facility] [place] [address] 01/08/2020 12:00:00 AM EST eCW1 ([facility]) [place] [address] [facility] [place] [address] 12/03/2019 12:00:00 AM EDT eCW1 ([facility]) [place] [address] [facility] [place] [address] 12/03/2019 12:00:00 AM EDT eCW1 ([facility]) [place] [address] [facility] [place] [address] 11/25/2019 12:00:00 AM EDT eCW1 ([facility]) Medications Medication Brand Name Start Date Product Form Dose Route Admi nistrative Instructions Pharmacy Instructions Status Indications Reaction Description Data Source(s) Co-Enzyme Q10 200 MG Co-Enzyme Q10 10/09/2020 01:00:00 AM EDT completed NETSMART ([facility]) May Have - UNK 10/02/2020 12:00:00 AM EDT active May Have - [facility] May Have - UNK 10/02/2020 12:00:00 AM EDT active May Have - eCW1 ([facility]) May Have - UNK 10/02/2020 12:00:00 AM EDT active May Have - eCW1 ([facility]) May Have - UNK 10/02/2020 12:00:00 AM EDT active May Have - eCW1 ([facility]) May Have - UNK 10/02/2020 12:00:00 AM EDT active May Have - eCW1 ([facility]) May Have - UNK 10/02/2020 12:00:00 AM EDT active May Have - eCW1 ([facility]) May Have - UNK 10/02/2020 12:00:00 AM EDT active May Have - eCW1 ([facility]) May Have - UNK 10/02/2020 12:00:00 AM EDT active May Have - eCW1 ([facility]) May Have - UNK 10/02/2020 12:00:00 AM EDT active May Have - eCW1 ([facility]) May Have - UNK 10/02/2020 12:00:00 AM EDT active May Have - eCW1 ([facility]) May Have - UNK 10/02/2020 12:00:00 AM EDT active May Have - eCW1 ([facility]) May Have - UNK 10/02/2020 12:00:00 AM EDT active May Have - eCW1 ([facility]) May Have - UNK 10/02/2020 12:00:00 AM EDT active May Have - eCW1 ([facility]) May Have - UNK 10/02/2020 12:00:00 AM EDT active May Have - eCW1 ([facility]) May Have - UNK 10/02/2020 12:00:00 AM EDT active May Have - eCW1 ([facility]) May Have - UNK 10/02/2020 12:00:00 AM EDT active May Have - eCW1 ([facility]) May Have - UNK 09/24/2020 12:00:00 AM EDT active May Have - eCW1 ([facility]) May Have - UNK 09/24/2020 12:00:00 AM EDT active May Have - eCW1 ([facility]) May Have - UNK 09/24/2020 12:00:00 AM EDT active May Have - eCW1 ([facility]) May Have - UNK 09/24/2020 12:00:00 AM EDT active May Have - eCW1 ([facility]) May Have - UNK 09/24/2020 12:00:00 AM EDT active May Have - eCW1 ([facility]) May Have - UNK 09/24/2020 12:00:00 AM EDT active May Have - eCW1 ([facility]) May Have - UNK 09/24/2020 12:00:00 AM EDT active May Have - eCW1 ([facility]) May Have - UNK 09/24/2020 12:00:00 AM EDT active May Have - eCW1 ([facility]) May Have - UNK 09/24/2020 12:00:00 AM EDT active May Have - eCW1 ([facility]) May Have - UNK 09/24/2020 12:00:00 AM EDT active May Have - eCW1 ([facility]) May Have - UNK 09/24/2020 12:00:00 AM EDT active May Have - eCW1 ([facility]) May Have - UNK 09/24/2020 12:00:00 AM EDT active May Have - eCW1 ([facility]) May Have - UNK 09/24/2020 12:00:00 AM EDT active May Have - eCW1 ([facility]) May Have - UNK 09/24/2020 12:00:00 AM EDT active May Have - eCW1 ([facility]) May Have - UNK 09/24/2020 12:00:00 AM EDT active May Have - eCW1 ([facility]) May Have - UNK 09/24/2020 12:00:00 AM EDT active May Have - eCW1 ([facility]) May Have - UNK 09/24/2020 12:00:00 AM EDT active May Have - eCW1 ([facility]) May Have - UNK 09/24/2020 12:00:00 AM EDT active May Have - eCW1 ([facility]) Vancleave 3 1200 MG Vancleave 3 09/19/2020 01:00:00 AM EDT completed NETSMART ([facility]) [place] Extract 250 MG [place] Extract 09/19/2020 01:00:00 AM EDT completed NETSMART ([facility]) Vitamin C 1000 MG Vitamin C 09/19/2020 01:00:00 AM EDT completed NETSMART ([facility] ) Tylenol 8 Hour Arthritis Pain 650 MG Tylenol 8 Hour Arthriti s Pain 09/19/2020 01:00:00 AM EDT completed NETSMART ([facility]) tiZANidine HCl 2 MG tiZANidine HCl 09/19/2020 01:00:00 AM EDT completed NETSMART ([facility]) Bacitracin 500 UNIT/GM Bacitracin 09/19/2020 01:00:00 AM EDT completed NETSMART ([facility]) Turmeric Curcumin 500 MG Turmeric Curcumin 09/19/2020 01:00:00 AM EDT completed NETSMART ([facility]) Furosemide 20 MG Furosemide 09/19/2020 01:00:00 AM EDT 2.0 {tabl et} completed NETSMART ([facility]) Vitamin D (Cholecalciferol) 1000 UNIT Vitamin D (Cholecalcif luis alberto) 09/19/2020 01:00:00 AM EDT 2.0 {tablet} completed NETSMART ([facility]) Gabapentin 300 MG Gabapentin 09/19/2020 01:00:00 AM EDT completed NETSMART ([facility] ) Escitalopram Oxalate 10 MG Escitalopram Oxalate 09/19/2020 01:00:00 A M EDT completed NETSMART ( [facility]) Calcium 600+D 600-400 MG-UNIT Calcium 600+D 09/19/2020 01:00:00 AM EDT completed NETSMART ([facility]) Omeprazole 20 MG Omeprazole 09/19/2020 01:00:00 AM EDT completed NETSMART ([facility] ) Garlic 1500 1500 MG Garlic 1500 09/19/2020 01:00:00 AM EDT 2.0 { tablet} completed NETSMART ([facility]) Normal Saline Flush 0.9 % Normal Saline Flush 0.9 % 03/26/2020 1 2:00:00 AM EST active Normal Saline Fl ush 0.9 % eCW[facility]) Normal Saline Flush 0.9 % Normal Saline Flush 0.9 % 03/26/2020 1 2:00:00 AM EST active Normal Saline Fl ush 0.9 % eCW1 ([facility]) Optifoam 4"X4" UNK 03/26/2020 12:00:00 AM EST active Optifoam 4"X4" eCW1 ([facility]) Normal Saline Flush 0.9 % Normal Saline Flush 0.9 % 03/26/2020 1 2:00:00 AM EST active Normal Saline Fl ush 0.9 % eCW1 ([facility]) Gauze Sponge 4"X4" UNK 03/26/2020 12:00:00 AM EST active Gauze Sponge 4"X4" eCW1 ([facility]) Gauze Sponge 4"X4" UNK 03/26/2020 12:00:00 AM EST active Gauze Sponge 4"X4" eCW1 ([facility]) Gauze Sponge 4"X4" UNK 03/26/2020 12:00:00 AM EST active Gauze Sponge 4"X4" eCW1 ([facility]) Normal Saline Flush 0.9 % Normal Saline Flush 0.9 % 03/26/2020 1 2:00:00 AM EST active Normal Saline Fl ush 0.9 % eCW1 ([facility]) Gauze Sponge 4"X4" UNK 03/26/2020 12:00:00 AM EST active Gauze Sponge 4"X4" eCW1 ([facility]) Gauze Sponge 4"X4" UNK 03/26/2020 12:00:00 AM EST active Gauze Sponge 4"X4" eCW1 ([facility]) Gauze Sponge 4"X4" UNK 03/26/2020 12:00:00 AM EST active Gauze Sponge 4"X4" eCW1 ([facility]) Normal Saline Flush 0.9 % Normal Saline Flush 0.9 % 03/26/2020 1 2:00:00 AM EST active Normal Saline Fl ush 0.9 % eCW1 ([facility]) Gauze Sponge 4"X4" UNK 03/26/2020 12:00:00 AM EST active Gauze Sponge 4"X4" eCW1 ([facility]) Optifoam 4"X4" Optifoam 4"X4" 03/26/2020 12:00:00 AM EST active Optifoam 4"X4" eCW1 ([facility]) Optifoam 4"X4" UNK 03/26/2020 12:00:00 AM EST active Optifoam 4"X4" eCW1 ([facility]) Gauze Sponge 4"X4" UNK 03/26/2020 12:00:00 AM EST active Gauze Sponge 4"X4" eCW1 ([facility]) Optifoam 4"X4" UNK 03/26/2020 12:00:00 AM EST active Optifoam 4"X4" eCW1 ([facility]) Optifoam 4"X4" Optifoam 4"X4" 03/26/2020 12:00:00 AM EST active Optifoam 4"X4" eCW1 ([facility]) Optifoam 4"X4" UNK 03/26/2020 12:00:00 AM EST active Optifoam 4"X4" eCW1 ([facility]) Normal Saline Flush 0.9 % Normal Saline Flush 0.9 % 03/26/2020 1 2:00:00 AM EST active Normal Saline Fl ush 0.9 % eCW1 ([facility]) Normal Saline Flush 0.9 % Normal Saline Flush 0.9 % 03/26/2020 1 2:00:00 AM EST active Normal Saline Fl ush 0.9 % eCW1 ([facility]) Optifoam 4"X4" Optifoam 4"X4" 03/26/2020 12:00:00 AM EST active Optifoam 4"X4" eCW1 ([facility]) Gauze Sponge 4"X4" UNK 03/26/2020 12:00:00 AM EST active Gauze Sponge 4"X4" eCW1 ([facility]) Gauze Sponge 4"X4" UNK 03/26/2020 12:00:00 AM EST active Gauze Sponge 4"X4" eCW1 ([facility]) Optifoam 4"X4" UNK 03/26/2020 12:00:00 AM EST active Optifoam 4"X4" eCW1 ([facility]) Optifoam 4"X4" Optifoam 4"X4" 03/26/2020 12:00:00 AM EST active Optifoam 4"X4" eCW1 ([facility]) Normal Saline Flush 0.9 % Normal Saline Flush 0.9 % 03/26/2020 1 2:00:00 AM EST active Normal Saline Fl ush 0.9 % eCW1 ([facility]) Gauze Sponge 4"X4" UNK 03/26/2020 12:00:00 AM EST active Gauze Sponge 4"X4" eCW1 ([facility]) Gauze Sponge 4"X4" UNK 03/26/2020 12:00:00 AM EST active Gauze Sponge 4"X4" eCW1 ([facility]) Normal Saline Flush 0.9 % Normal Saline Flush 0.9 % 03/26/2020 1 2:00:00 AM EST active Normal Saline Fl ush 0.9 % eCW1 ([facility]) Optifoam 4"X4" UNK 03/26/2020 12:00:00 AM EST active Optifoam 4"X4" eCW1 ([facility]) Normal Saline Flush 0.9 % Normal Saline Flush 0.9 % 03/26/2020 1 2:00:00 AM EST active Normal Saline Fl ush 0.9 % eCW1 ([facility]) Gauze Sponge 4"X4" UNK 03/26/2020 12:00:00 AM EST active Gauze Sponge 4"X4" eCW1 ([facility]) Normal Saline Flush 0.9 % Normal Saline Flush 0.9 % 03/26/2020 1 2:00:00 AM EST active Normal Saline Fl ush 0.9 % eCW1 ([facility]) Gauze Sponge 4"X4" UNK 03/26/2020 12:00:00 AM EST active Gauze Sponge 4"X4" eCW1 ([facility]) Optifoam 4"X4" UNK 03/26/2020 12:00:00 AM EST active Optifoam 4"X4" eCW1 ([facility]) Optifoam 4"X4" UNK 03/26/2020 12:00:00 AM EST active Optifoam 4"X4" eCW1 ([facility]) Gauze Sponge 4"X4" UNK 03/26/2020 12:00:00 AM EST active Gauze Sponge 4"X4" eCW1 ([facility]) Normal Saline Flush 0.9 % Normal Saline Flush 0.9 % 03/26/2020 1 2:00:00 AM EST active Normal Saline Fl ush 0.9 % eCW1 ([facility]) Optifoam 4"X4" UNK 03/26/2020 12:00:00 AM EST active Optifoam 4"X4" eCW1 ([facility]) Normal Saline Flush 0.9 % Normal Saline Flush 0.9 % 03/26/2020 1 2:00:00 AM EST active Normal Saline Fl ush 0.9 % eCW1 ([facility]) Normal Saline Flush 0.9 % Normal Saline Flush 0.9 % 03/26/2020 1 2:00:00 AM EST active Normal Saline Fl ush 0.9 % eCW1 ([facility]) Gauze Sponge 4"X4" UNK 03/26/2020 12:00:00 AM EST active Gauze Sponge 4"X4" eCW1 ([facility]) Gauze Sponge 4"X4" UNK 03/26/2020 12:00:00 AM EST active Gauze Sponge 4"X4" eCW1 ([facility]) Gauze Sponge 4"X4" UNK 03/26/2020 12:00:00 AM EST active Gauze Sponge 4"X4" eCW1 ([facility]) Optifoam 4"X4" Optifoam 4"X4" 03/26/2020 12:00:00 AM EST active Optifoam 4"X4" eCW1 ([facility]) Optifoam 4"X4" Optifoam 4"X4" 03/26/2020 12:00:00 AM EST active Optifoam 4"X4" eCW1 ([facility]) Optifoam 4"X4" Optifoam 4"X4" 03/26/2020 12:00:00 AM EST active Optifoam 4"X4" eCW1 ([facility]) Normal Saline Flush 0.9 % Normal Saline Flush 0.9 % 03/26/2020 1 2:00:00 AM EST active Normal Saline Fl ush 0.9 % eCW1 ([facility]) Optifoam 4"X4" UNK 03/26/2020 12:00:00 AM EST active Optifoam 4"X4" eCW1 ([facility]) Normal Saline Flush 0.9 % Normal Saline Flush 0.9 % 03/26/2020 1 2:00:00 AM EST active Normal Saline Fl ush 0.9 % eCW1 ([facility]) Normal Saline Flush 0.9 % Normal Saline Flush 0.9 % 03/26/2020 1 2:00:00 AM EST active Normal Saline Fl ush 0.9 % eCW1 ([facility]) Optifoam 4"X4" Optifoam 4"X4" 03/26/2020 12:00:00 AM EST active Optifoam 4"X4" eCW1 ([facility]) Optifoam 4"X4" UNK 03/26/2020 12:00:00 AM EST active Optifoam 4"X4" eCW1 ([facility]) Normal Saline Flush 0.9 % Normal Saline Flush 0.9 % 03/26/2020 1 2:00:00 AM EST active Normal Saline Fl ush 0.9 % eCW1 ([facility]) Normal Saline Flush 0.9 % Normal Saline Flush 0.9 % 03/26/2020 1 2:00:00 AM EST active Normal Saline Fl ush 0.9 % eCW1 ([facility]) Normal Saline Flush 0.9 % Normal Saline Flush 0.9 % 03/26/2020 1 2:00:00 AM EST active Normal Saline Fl ush 0.9 % eCW1 ([facility]) Optifoam 4"X4" UNK 03/26/2020 12:00:00 AM EST active Optifoam 4"X4" eCW1 ([facility]) Optifoam 4"X4" UNK 03/26/2020 12:00:00 AM EST active Optifoam 4"X4" eCW1 ([facility]) Normal Saline Flush 0.9 % Normal Saline Flush 0.9 % 03/26/2020 1 2:00:00 AM EST active Normal Saline Fl ush 0.9 % eCW1 ([facility]) Gauze Sponge 4"X4" UNK 03/26/2020 12:00:00 AM EST active Gauze Sponge 4"X4" eCW1 ([facility]) Normal Saline Flush 0.9 % Normal Saline Flush 0.9 % 03/26/2020 1 2:00:00 AM EST active Normal Saline Fl ush 0.9 % eCW1 ([facility]) Normal Saline Flush 0.9 % Normal Saline Flush 0.9 % 03/26/2020 1 2:00:00 AM EST active Normal Saline Fl ush 0.9 % eCW1 ([facility]) Normal Saline Flush 0.9 % Normal Saline Flush 0.9 % 03/26/2020 1 2:00:00 AM EST active Normal Saline Fl ush 0.9 % eCW1 ([facility]) Gauze Sponge 4"X4" UNK 03/26/2020 12:00:00 AM EST active Gauze Sponge 4"X4" eCW1 ([facility]) Normal Saline Flush 0.9 % Normal Saline Flush 0.9 % 03/26/2020 1 2:00:00 AM EST active Normal Saline Fl ush 0.9 % eCW1 ([facility]) Gauze Sponge 4"X4" UNK 03/26/2020 12:00:00 AM EST active Gauze Sponge 4"X4" eCW1 ([facility]) Optifoam 4"X4" Optifoam 4"X4" 03/26/2020 12:00:00 AM EST active Optifoam 4"X4" eCW1 ([facility]) Optifoam 4"X4" UNK 03/26/2020 12:00:00 AM EST active Optifoam 4"X4" eCW1 ([facility]) Optifoam 4"X4" UNK 03/26/2020 12:00:00 AM EST active Optifoam 4"X4" eCW1 ([facility]) Gauze Sponge 4"X4" UNK 03/26/2020 12:00:00 AM EST active Gauze Sponge 4"X4" eCW1 ([facility]) Optifoam 4"X4" UNK 03/26/2020 12:00:00 AM EST active Optifoam 4"X4" eCW1 ([facility]) Normal Saline Flush 0.9 % Normal Saline Flush 0.9 % 03/26/2020 1 2:00:00 AM EST active Normal Saline Fl ush 0.9 % eCW1 ([facility]) Normal Saline Flush 0.9 % Normal Saline Flush 0.9 % 03/26/2020 1 2:00:00 AM EST active Normal Saline Fl ush 0.9 % eCW1 ([facility]) Gauze Sponge 4"X4" UNK 03/26/2020 12:00:00 AM EST active Gauze Sponge 4"X4" eCW1 ([facility]) Normal Saline Flush 0.9 % Normal Saline Flush 0.9 % 03/26/2020 1 2:00:00 AM EST active Normal Saline Fl ush 0.9 % eCW1 ([facility]) Gauze Sponge 4"X4" UNK 03/26/2020 12:00:00 AM EST active Gauze Sponge 4"X4" eCW1 ([facility]) Normal Saline Flush 0.9 % Normal Saline Flush 0.9 % 03/26/2020 1 2:00:00 AM EST active Normal Saline Fl ush 0.9 % eCW1 ([facility]) Normal Saline Flush 0.9 % Normal Saline Flush 0.9 % 03/26/2020 1 2:00:00 AM EST active Normal Saline Fl ush 0.9 % eCW1 ([facility]) Normal Saline Flush 0.9 % Normal Saline Flush 0.9 % 03/26/2020 1 2:00:00 AM EST active Normal Saline Fl ush 0.9 % eCW1 ([facility]) Gauze Sponge 4"X4" UNK 03/26/2020 12:00:00 AM EST active Gauze Sponge 4"X4" eCW1 ([facility]) Gauze Sponge 4"X4" UNK 03/26/2020 12:00:00 AM EST active Gauze Sponge 4"X4" eCW1 ([facility]) Gauze Sponge 4"X4" UNK 03/26/2020 12:00:00 AM EST active Gauze Sponge 4"X4" eCW1 ([facility]) Optifoam 4"X4" UNK 03/26/2020 12:00:00 AM EST active Optifoam 4"X4" eCW1 ([facility]) Normal Saline Flush 0.9 % Normal Saline Flush 0.9 % 03/26/2020 1 2:00:00 AM EST active Normal Saline Fl ush 0.9 % eCW1 ([facility]) Gauze Sponge 4"X4" K 03/26/2020 12:00:00 AM EST active Gauze Sponge 4"X4" eCW1 ([facility]) Gauze Sponge 4"X4" K 03/26/2020 12:00:00 AM EST active Gauze Sponge 4"X4" eCW1 ([facility]) Gauze Sponge 4"X4" K 03/26/2020 12:00:00 AM EST active Gauze Sponge 4"X4" eCW1 ([facility]) Optifoam 4"X4" K 03/26/2020 12:00:00 AM EST active Optifoam 4"X4" eCW1 ([facility]) Optifoam 4"X4" Optifoam 4"X4" 03/26/2020 12:00:00 AM EST active Optifoam 4"X4" [facility] ([facility]) Gauze Sponge 4"X4" K 03/26/2020 12:00:00 AM EST active Gauze Sponge 4"X4" [facility]1 ([facility]) Gauze Sponge 4"X4" K 03/26/2020 12:00:00 AM EST active Gauze Sponge 4"X4" [facility]1 ([facility]) Gauze Sponge 4"X4" UNK 03/26/2020 12:00:00 AM EST active Gauze Sponge 4"X4" [facility]1 ([facility]) Optifoam 4"X4" Optifoam 4"X4" 03/26/2020 12:00:00 AM EST active Optifoam 4"X4" [facility]1 ([facility]) Normal Saline Flush 0.9 % Normal Saline Flush 0.9 % 03/26/2020 1 2:00:00 AM EST active Normal Saline Fl ush 0.9 % eCW1 ([facility]) Optifoam 4"X4" UNK 03/26/2020 12:00:00 AM EST active Optifoam 4"X4" eCW1 ([facility]) Optifoam 4"X4" UNK 03/26/2020 12:00:00 AM EST active Optifoam 4"X4" [facility] Optifoam 4"X4" UNK 03/26/2020 12:00:00 AM EST active Optifoam 4"X4" [facility]CW[facility]) Optifoam 4"X4" UNK 03/26/2020 12:00:00 AM EST active Optifoam 4"X4" [facility]CW[facility]) ciclopirox 7.7 MG/ML Topical Cream [Loprox] Loprox 0.77 % Lo prox 0.77 % 03/20/2020 12:00:00 AM EST 1.0 {application} active Loprox 0.77 % [facility]CW1 [facility]) ciclopirox 7.7 MG/ML Topical Cream [Loprox] Loprox 0.77 % Lo prox 0.77 % 03/20/2020 12:00:00 AM EST 1.0 {application} active Loprox 0.77 % [facility]CW1 [facility] ciclopirox 7.7 MG/ML Topical Cream [Loprox] Loprox 0.77 % Lo prox 0.77 % 03/20/2020 12:00:00 AM EST 1.0 {application} active Loprox 0.77 % [facility]CW1 [facility] ciclopirox 7.7 MG/ML Topical Cream [Loprox] Loprox 0.77 % Lo prox 0.77 % 03/20/2020 12:00:00 AM EST 1.0 {application} active Loprox 0.77 % [facility]CW1 [facility] ciclopirox 7.7 MG/ML Topical Cream [Loprox] Loprox 0.77 % Lo prox 0.77 % 03/20/2020 12:00:00 AM EST 1.0 {application} active Loprox 0.77 % [facility]CW1 [facility]) ciclopirox 7.7 MG/ML Topical Cream [Loprox] Loprox 0.77 % Lo prox 0.77 % 03/20/2020 12:00:00 AM EST 1.0 {application} active Loprox 0.77 % [facility]CW1 [facility] ciclopirox 7.7 MG/ML Topical Cream [Loprox] Loprox 0.77 % Lo prox 0.77 % 03/20/2020 12:00:00 AM EST 1.0 {application} active Loprox 0.77 % [facility]CW1 [facility] ciclopirox 7.7 MG/ML Topical Cream [Loprox] Loprox 0.77 % Lo prox 0.77 % 03/20/2020 12:00:00 AM EST 1.0 {application} active Loprox 0.77 % [facility]CW1 [facility] ciclopirox 7.7 MG/ML Topical Cream [Loprox] Loprox 0.77 % Lo prox 0.77 % 03/20/2020 12:00:00 AM EST 1.0 {application} active Loprox 0.77 % [facility]CW1 [facility]) ciclopirox 7.7 MG/ML Topical Cream [Loprox] Loprox 0.77 % Lo prox 0.77 % 03/20/2020 12:00:00 AM EST 1.0 {application} active Loprox 0.77 % [facility]CW1 [facility]) ciclopirox 7.7 MG/ML Topical Cream [Loprox] Loprox 0.77 % Lo prox 0.77 % 03/20/2020 12:00:00 AM EST 1.0 {application} active Loprox 0.77 % eCW1 [facility]) ciclopirox 7.7 MG/ML Topical Cream [Loprox] Loprox 0.77 % Lo prox 0.77 % 03/20/2020 12:00:00 AM EST 1.0 {application} active Loprox 0.77 % [facility]CW1 [facility]) ciclopirox 7.7 MG/ML Topical Cream [Loprox] Loprox 0.77 % Lo prox 0.77 % 03/20/2020 12:00:00 AM EST 1.0 {application} active Loprox 0.77 % eCW1 [facility]) ciclopirox 7.7 MG/ML Topical Cream [Loprox] Loprox 0.77 % Lo prox 0.77 % 03/20/2020 12:00:00 AM EST 1.0 {application} active Loprox 0.77 % eCW1 [facility]) ciclopirox 7.7 MG/ML Topical Cream [Loprox] Loprox 0.77 % Lo prox 0.77 % 03/20/2020 12:00:00 AM EST 1.0 {application} active Loprox 0.77 % [facility]CW1 [facility]) ciclopirox 7.7 MG/ML Topical Cream [Loprox] Loprox 0.77 % Lo prox 0.77 % 03/20/2020 12:00:00 AM EST 1.0 {application} active Loprox 0.77 % [facility]CW1 [facility]) ciclopirox 7.7 MG/ML Topical Cream [Loprox] Loprox 0.77 % Lo prox 0.77 % 03/20/2020 12:00:00 AM EST 1.0 {application} active Loprox 0.77 % [facility]CW1 [facility] ciclopirox 7.7 MG/ML Topical Cream [Loprox] Loprox 0.77 % Lo prox 0.77 % 03/20/2020 12:00:00 AM EST 1.0 {application} active Loprox 0.77 % eCW1 [facility]) ciclopirox 7.7 MG/ML Topical Cream [Loprox] Loprox 0.77 % Lo prox 0.77 % 03/20/2020 12:00:00 AM EST 1.0 {application} active Loprox 0.77 % eCW1 [facility]) ciclopirox 7.7 MG/ML Topical Cream [Loprox] Loprox 0.77 % Lo prox 0.77 % 03/20/2020 12:00:00 AM EST 1.0 {application} active Loprox 0.77 % eCW1 [facility]) ciclopirox 7.7 MG/ML Topical Cream [Loprox] Loprox 0.77 % Lo prox 0.77 % 03/20/2020 12:00:00 AM EST 1.0 {application} active Loprox 0.77 % eCW1 [facility]) ciclopirox 7.7 MG/ML Topical Cream [Loprox] Loprox 0.77 % Lo prox 0.77 % 03/20/2020 12:00:00 AM EST 1.0 {application} active Loprox 0.77 % eCW1 [facility]) ciclopirox 7.7 MG/ML Topical Cream [Loprox] Loprox 0.77 % Lo prox 0.77 % 03/20/2020 12:00:00 AM EST 1.0 {application} active Loprox 0.77 % eCW1 [facility] ciclopirox 7.7 MG/ML Topical Cream [Loprox] Loprox 0.77 % Lo prox 0.77 % 03/20/2020 12:00:00 AM EST 1.0 {application} active Loprox 0.77 % eCW1 [facility] ciclopirox 7.7 MG/ML Topical Cream [Loprox] Loprox 0.77 % Lo prox 0.77 % 03/20/2020 12:00:00 AM EST 1.0 {application} active Loprox 0.77 % eCW1 [facility] ciclopirox 7.7 MG/ML Topical Cream [Loprox] Loprox 0.77 % Lo prox 0.77 % 03/20/2020 12:00:00 AM EST 1.0 {application} active Loprox 0.77 % eCW1 [facility] ciclopirox 7.7 MG/ML Topical Cream [Loprox] Loprox 0.77 % Lo prox 0.77 % 03/20/2020 12:00:00 AM EST 1.0 {application} active Loprox 0.77 % eCW1 [facility]) ciclopirox 7.7 MG/ML Topical Cream [Loprox] Loprox 0.77 % Lo prox 0.77 % 03/20/2020 12:00:00 AM EST 1.0 {application} active Loprox 0.77 % eCW1 [facility]) ciclopirox 7.7 MG/ML Topical Cream [Loprox] Loprox 0.77 % Lo prox 0.77 % 03/20/2020 12:00:00 AM EST 1.0 {application} active Loprox 0.77 % eCW1 [facility]) ciclopirox 7.7 MG/ML Topical Cream [Loprox] Loprox 0.77 % Lo prox 0.77 % 03/20/2020 12:00:00 AM EST 1.0 {application} active Loprox 0.77 % eCW1 [facility]) ciclopirox 7.7 MG/ML Topical Cream [Loprox] Loprox 0.77 % Lo prox 0.77 % 03/20/2020 12:00:00 AM EST 1.0 {application} active Loprox 0.77 % eCW1 [facility]) ciclopirox 7.7 MG/ML Topical Cream [Loprox] Loprox 0.77 % Lo prox 0.77 % 03/20/2020 12:00:00 AM EST 1.0 {application} active Loprox 0.77 % eCW1 [facility]) ciclopirox 7.7 MG/ML Topical Cream [Loprox] Loprox 0.77 % Lo prox 0.77 % 03/20/2020 12:00:00 AM EST 1.0 {application} active Loprox 0.77 % eCW1 [facility]) ciclopirox 7.7 MG/ML Topical Cream [Loprox] Loprox 0.77 % Lo prox 0.77 % 03/20/2020 12:00:00 AM EST 1.0 {application} active Loprox 0.77 % [facility]CW1 [facility]) tizanidine 2 MG Oral Tablet Tizanidine HCl 2 MG Tizanidine H Cl 2 MG 12/04/2019 12:00:00 AM EDT 1.0 {tablet_as_needed} active Tizanidine HCl 2 MG [facility]CW1 [facility]) tizanidine 2 MG Oral Tablet Tizanidine HCl 2 MG Tizanidine H Cl 2 MG 12/04/2019 12:00:00 AM EDT 1.0 {tablet_as_needed} active Tizanidine HCl 2 MG eCW1 [facility]) tizanidine 2 MG Oral Tablet Tizanidine HCl 2 MG Tizanidine H Cl 2 MG 12/04/2019 12:00:00 AM EDT 1.0 {tablet_as_needed} active Tizanidine HCl 2 MG eCW1 [facility]) tizanidine 2 MG Oral Tablet Tizanidine HCl 2 MG Tizanidine H Cl 2 MG 12/04/2019 12:00:00 AM EDT 1.0 {tablet_as_needed} active Tizanidine HCl 2 MG eCW1 [facility]) tizanidine 2 MG Oral Tablet Tizanidine HCl 2 MG Tizanidine H Cl 2 MG 12/04/2019 12:00:00 AM EDT 1.0 {tablet_as_needed} active Tizanidine HCl 2 MG eCW1 [facility]) tizanidine 2 MG Oral Tablet Tizanidine HCl 2 MG Tizanidine H Cl 2 MG 12/04/2019 12:00:00 AM EDT 1.0 {tablet_as_needed} active Tizanidine HCl 2 MG [facility]CW1 [facility]) Insurance Providers Payer name Policy type / Coverage type Policy ID Covered green party ID Covered green party's relationship to [place] Policy [place] Plan Information [address] [address] JODI Gonzalez IKE [id number] [place] [employer] [employer] [id number] [employer] [id number] 0 [id number] [employer] [employer] [id number] 0 [id number] ANS-Medicare Part B [id number] ANSI-Medicare Part B [id number] ANSI-Medicare Part B [id number] ANSI-Medicare Part B [id number] ANSI-Medicare Part B [id number] ANSI-Medicare Part B [id number] ANSI-Medicare Part B [id number] ANSI-Medicare Part B [id number] [facility] HMO/PPO/POS/EPO/OTHER [id number] MEDICARE BLUE PPO 306 [id number] SP [id number] MEDICARE BLUE PPO 306 [id number] SP [id number] ANSI-Medicare Part B [id number] Problems, Conditions, and Diagnoses Code Display Name Description Problem Type Effective Dates Data Source(s) I87.2 Stasis dermatitis Stasis dermatitis Problem 11/19/2020 12:00:00 AM EDT [facility]CW[facility] L89.152 Pressure ulcer of sacral region, stage 2 Pressure ulcer of sacral region, stage 2 Problem 11/13/2020 01:00:00 AM EDT NETSMART ([facility]) 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 Problem 11/13/2020 01:00:00 AM EDT NETSMART ([facility]) 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 Ba rrett's esophagus without dysplasia Problem 11/13/2020 01:00:00 AM EDT NETSMART ([facility]) E55.9 Vitamin D deficiency, unspecified Vitamin D defi ciency, unspecified Problem 11/13/2020 01:00:00 AM EDT NETSMART ([facility]) F41.9 Anxiety disorder, unspecified Anxiety disorder, unspec ified Problem 11/13/2020 01:00:00 AM EDT NETSMART ([facility] ) E78.5 Hyperlipidemia, unspecified Hyperlipidemia, unspecifie d Problem 11/13/2020 01:00:00 AM EDT NETSMART ([facility] ) 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 Prob mirta 11/13/2020 01:00:00 AM EDT NETSMART ([facility] ) Z91.81 History of falling History of falling Problem 01:00:00 AM EDT NETSMART ([facility]) I87.312 [id number] 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 Problem 11/05/2020 12:00:00 AM EDT eCW1 ([facility]) L97.322 [id number] Non-pressure chronic ulcer of left ankle with fat layer exposed Problem 11/05/2020 12:00:00 AM EDT eCW1 ([facility]) L89.153 [id number] Pressure injury of coccygeal region, stag e 3 Problem 11/05/2020 12:00:00 AM EDT eCW1 [facility] L97.929 [id number] Non-pressure chronic ulcer of unspecified part of left lower leg with unspecified severity Problem 11/04/2020 12:00:00 AM EDT eCW 1 ([facility]) I83.029 [id number] 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 of unspecified site Problem 11/04/2020 12:00:00 AM EDT eCW1 ([facility]) R26.2 [id number] Special needs due to difficulty walking u nassisted Problem 11/04/2020 12:00:00 AM EDT eCW1 ([facility]) L89.312 Pressure ulcer of right buttock, stage 2 Pressure ulcer of right buttock, stage 2 Problem 09/19/2020 01:00:00 AM EDT NETSMART ([facility]) L89.321 Pressure ulcer of left buttock, stage 1 Pressure ulcer of left buttock, stage 1 Problem 09/19/2020 01:00:00 AM EDT NETSMART ([facility]) Z48.00 Encounter for change or removal of nonsu rgical wound dressing Encounter for change or removal of nonsurgical wound dressing Problem 01:00:00 AM EDT NETSMART ([facility] ) 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 Problem 09/19/2020 01:00:00 AM EDT NETSMART ([facility]) 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 Ba rrett's esophagus without dysplasia Problem 09/19/2020 01:00:00 AM EDT NETSMART ([facility]) E55.9 Vitamin D deficiency, unspecified Vitamin D defi ciency, unspecified Problem 09/19/2020 01:00:00 AM EDT NETSMART ([facility]) F41.9 Anxiety disorder, unspecified Anxiety disorder, unspec ified Problem 09/19/2020 01:00:00 AM EDT NETSMART ([facility] ) E78.5 Hyperlipidemia, unspecified Hyperlipidemia, unspecifie d Problem 09/19/2020 01:00:00 AM EDT NETSMART ([facility] ) 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 Prob mirta 09/19/2020 01:00:00 AM EDT NETSMART ([facility] ) Z91.81 History of falling History of falling Problem 01:00:00 AM EDT NETSMART ([facility]) L89.152 Pressure ulcer of sacral region, stage 2 Pressure ulcer of sacral region, stage 2 Problem 09/19/2020 01:00:00 AM EDT NETSMART ([facility]) L89.310 [id number] Pressure sore on buttocks, right, unstage able Problem 03/20/2020 12:00:00 AM EST [facility]CW1 [facility] Surgeries/Procedures Procedure Description Date Indications Data Source(s) FINE NEEDLE ASPIRATION W/O IMAGING GUIDANCE 11/05/2020 12:00:00 AM EDT eCW1 ([facility]) Medication: Silver Nitrate Stick topically 11/05/2020 12:00:00 AM EDT eCW1 ([facility]) Results ID Date Data Source [id number] 12/31/2020 12:00:00 AM EST [facility] Name Value Range Interpretation Code Description Data Charline rce(s) Supporting Document(s) SARS-CoV2 Rapid Antigen Positive [facility] This lab was ordered by [facility] and reported by [facility]. ID Date Data Source VITAMIN D [id number] 04/04/2020 12:00:00 AM EST eCW1 ([facility]) Name Value Range Interpretation Code Description Data Charline rce(s) Supporting Document(s) 33.6 30.0-100.0 eCW1 ([facility]) ID Date Data Source LIPID PANEL (CARDIAC RISK) 04/04/2020 12:00:00 AM EST eCW1 ( [facility] Name Value Range Interpretation Code Description Data Charline rce(s) Supporting Document(s) Cholesterol [Moles/volume] in Serum or Plasma 226 <200 eCW1 ([facility]) Cholesterol in HDL [Moles/volume] in Serum or Plasma 46 >40 eCW1 ([facility]) Cholesterol in LDL [Mass/volume] in Serum or Plasma by calculation 12 6 <100 eCW1 ([facility]) Triglyceride [Mass/volume] in Serum or Plasma by calculation 271 <150 eCW1 ([facility]) 180 eCW1 ([facility]) 4.913 <5 eCW1 ([facility]) ID Date Data Source FREE T4 & TSH PANEL 04/04/2020 12:00:00 AM EST eCW1 ([facility]) Name Value Range Interpretation Code Description Data Charline rce(s) Supporting Document(s) 1.940 0.358-3.740 eCW1 ([facility]) 0.87 0.76-1.46 eCW1 ([facility]) ID Date Data Source Comprehensive Metabolic Profile (CMP) 04/04/2020 12:00:00 AM EST eCW1 [facility] Name Value Range Interpretation Code Description Data Charline rce(s) Supporting Document(s) 95 70-100 eCW1 ([facility]) 17 7-18 eCW1 ([facility]) 0.81 0.55-1.30 eCW1 ([facility]) 29 21-32 eCW1 ([facility]) 4.2 3.5-5.1 eCW1 ([facility]) > 60.0 >39 eCW1 ([facility]) 104 98-107 eCW1 ([facility]) 137 136-145 eCW1 ([facility]) 14 7-37 eCW1 ([facility]) 89 45-117 eCW1 ([facility]) 21 12-78 eCW1 ([facility]) 9.3 8.8-10.2 eCW1 ([facility]) 7.4 6.4-8.2 eCW1 ([facility]) 0.9 1.2-2.2 eCW1 ([facility]) 0.6 0.2-1.0 eCW1 ([facility]) 3.6 3.2-5.2 eCW1 ([facility]) ID Date Data Source CBC - Complete Blood Count 04/04/2020 12:00:00 AM EST eCW1 ( [facility] Name Value Range Interpretation Code Description Data Charline rce(s) Supporting Document(s) 5.9 4.0-10.0 eCW1 ([facility]) 4.55 4.00-5.40 eCW1 ([facility]) 13.8 12.0-15.5 eCW1 ([facility]) 96.0 80.0-96.0 eCW1 ([facility]) 43.7 36.0-47.0 eCW1 ([facility]) 31.6 32.0-36.5 eCW1 ([facility]) 30.3 27.0-33.0 eCW1 ([facility]) 13.0 11.5-14.5 eCW1 ([facility]) 181 150-450 eCW1 ([facility]) Procedure Social History Code Duration Value Status Description Data Source(s ) Smoking 12/02/2020 12:00:00 AM EDT Former Smoker completed Former Smoker eCW1 [facility]) Smoking 12/02/2020 12:00:00 AM EDT Former Smoker completed Former Smoker eCW1 ([facility]) Smoking 12/02/2020 12:00:00 AM EDT Former Smoker completed Former Smoker eCW1 ([facility]) Smoking 12/02/2020 12:00:00 AM EDT Former Smoker completed Former Smoker eCW1 ([facility]) Smoking 12/02/2020 12:00:00 AM EDT Former Smoker completed Former Smoker eCW1 ([facility]) Smoking 12/02/2020 12:00:00 AM EDT Former Smoker completed Former Smoker eCW1 ([facility]) Smoking 12/02/2020 12:00:00 AM EDT Former Smoker completed Former Smoker eCW1 ([facility]) Smoking 11/21/2020 12:00:00 AM EDT Former Smoker completed Former Smoker eCW1 ([facility]) Smoking 11/21/2020 12:00:00 AM EDT Former Smoker completed Former Smoker eCW1 ([facility]) Smoking 11/21/2020 12:00:00 AM EDT Former Smoker completed Former Smoker eCW1 ([facility]) Smoking 11/05/2020 12:00:00 AM EDT Former Smoker completed Former Smoker eCW1 ([facility]) Smoking 11/05/2020 12:00:00 AM EDT Former Smoker completed Former Smoker eCW1 ([facility]) Smoking 11/05/2020 12:00:00 AM EDT Former Smoker completed Former Smoker eCW1 ([facility]) Smoking 09/03/2020 12:00:00 AM EDT Former Smoker completed Former Smoker eCW1 ([facility]) Smoking 09/03/2020 12:00:00 AM EDT Former Smoker completed Former Smoker eCW1 ([facility]) Smoking 09/03/2020 12:00:00 AM EDT Former Smoker completed Former Smoker eCW1 ([facility]) Smoking 09/03/2020 12:00:00 AM EDT Former Smoker completed Former Smoker eCW1 ([facility]) Smoking 09/03/2020 12:00:00 AM EDT Former Smoker completed Former Smoker eCW1 ([facility]) Smoking 09/03/2020 12:00:00 AM EDT Former Smoker completed Former Smoker eCW1 ([facility]) Smoking 09/03/2020 12:00:00 AM EDT Former Smoker completed Former Smoker eCW1 ([facility]) Smoking 06/18/2020 12:00:00 AM EDT Former Smoker completed Former Smoker eCW1 ([facility]) Smoking 06/18/2020 12:00:00 AM EDT Former Smoker completed Former Smoker eCW1 ([facility]) Smoking 06/18/2020 12:00:00 AM EDT Former Smoker completed Former Smoker eCW1 ([facility]) Smoking 04/04/2020 12:00:00 AM EST Former Smoker completed Former Smoker eCW1 ([facility]) Smoking 04/04/2020 12:00:00 AM EST Former Smoker completed Former Smoker eCW1 ([facility]) Smoking 04/04/2020 12:00:00 AM EST Former Smoker completed Former Smoker eCW1 ([facility]) Smoking 04/04/2020 12:00:00 AM EST Former Smoker completed Former Smoker eCW1 ([facility]) Smoking 04/04/2020 12:00:00 AM EST Former Smoker completed Former Smoker eCW1 ([facility]) Smoking 04/04/2020 12:00:00 AM EST Former Smoker completed Former Smoker eCW1 ([facility]) Smoking 03/20/2020 12:00:00 AM EST Former Smoker completed Former Smoker eCW1 ([facility]) Smoking 03/20/2020 12:00:00 AM EST Former Smoker completed Former Smoker eCW1 ([facility]) Smoking 03/20/2020 12:00:00 AM EST Former Smoker completed Former Smoker eCW1 ([facility]) Smoking 03/20/2020 12:00:00 AM EST Former Smoker completed Former Smoker eCW1 ([facility]) Smoking 03/20/2020 12:00:00 AM EST Former Smoker completed Former Smoker eCW1 ([facility]) Smoking 01/18/2020 12:00:00 AM EST Former Smoker completed Former Smoker eCW1 ([facility]) Smoking 01/18/2020 12:00:00 AM EST Former Smoker completed Former Smoker eCW1 ([facility]) Smoking 01/18/2020 12:00:00 AM EST Former Smoker completed Former Smoker eCW1 ([facility]) Vital Signs ID Date Data Source UNK Name Value Range Interpretation Code Description Data Source(s) Body weight 235 [lb_av] 235 [lb_av] eCW1 ([facility]) Body height 67 [in_i] 67 [in_i] eCW1 ([facility]) Body mass index (BMI) [Ratio] 36.80 kg/m2 36.80 kg/m2 eCW1 ([facility]) Heart rate 74 /min 74 /min eCW1 ([facility]) Respiratory rate 18 /min 18 /min eCW1 ([facility]) Body temperature 98.0 [degF] 98.0 [degF] eCW1 ( [facility]) Systolic blood pressure 164 mm[Hg] 164 mm[Hg] e CW1 ([facility]) Diastolic blood pressure 72 mm[Hg] 72 mm[Hg] eCW1 ([facility]) Body height 67 [in_i] 67 [in_i] eCW1 ([facility]) Body weight 235 [lb_av] 235 [lb_av] eCW1 ([facility]) Body weight 106.6 kg 106.6 kg eCW1 ([facility]) Body mass index (BMI) [Ratio] 36.80 kg/m2 36.80 kg/m2 eCW1 ([facility]) Heart rate 70 /min 70 /min eCW1 ([facility]) Respiratory rate 18 /min 18 /min eCW1 ([facility]) Body temperature 95.4 [degF] 95.4 [degF] eCW1 ( [facility]) Systolic blood pressure 120 mm[Hg] 120 mm[Hg] e CW1 ([facility]) Diastolic blood pressure 65 mm[Hg] 65 mm[Hg] eCW1 ([facility]) Body weight 235 [lb_av] 235 [lb_av] eCW1 ([facility]) Body height 67 [in_i] 67 [in_i] eCW1 ([facility]) Body mass index (BMI) [Ratio] 36.80 kg/m2 36.80 kg/m2 eCW1 ([facility]) Heart rate 76 /min 76 /min eCW1 ([facility]) Respiratory rate 20 /min 20 /min eCW1 ([facility]) Body temperature 98.2 [degF] 98.2 [degF] eCW1 ( [facility]) Systolic blood pressure 128 mm[Hg] 128 mm[Hg] e CW1 ([facility]) Diastolic blood pressure 72 mm[Hg] 72 mm[Hg] eCW1 ([facility]) Body weight 235 [lb_av] 235 [lb_av] eCW1 ([facility]) Body height 67 [in_i] 67 [in_i] eCW1 ([facility]) Body mass index (BMI) [Ratio] 36.80 kg/m2 36.80 kg/m2 eCW1 ([facility]) Heart rate 70 /min 70 /min eCW1 ([facility]) Systolic blood pressure 110 mm[Hg] 110 mm[Hg] e CW1 ([facility]) Diastolic blood pressure 60 mm[Hg] 60 mm[Hg] eCW1 ([facility]) Body weight 235 [lb_av] 235 [lb_av] eCW1 ([facility]) Body height 67 [in_i] 67 [in_i] eCW1 ([facility]) Body mass index (BMI) [Ratio] 36.80 kg/m2 36.80 kg/m2 eCW1 ([facility]) Heart rate 70 /min 70 /min eCW1 ([facility]) Respiratory rate 20 /min 20 /min eCW1 ([facility]) Body temperature 97.7 [degF] 97.7 [degF] eCW1 ( [facility]) Systolic blood pressure 120 mm[Hg] 120 mm[Hg] e CW1 ([facility]) Diastolic blood pressure 60 mm[Hg] 60 mm[Hg] eCW1 ([facility]) Body weight 235 [lb_av] 235 [lb_av] eCW1 ([facility]) Body height 67 [in_i] 67 [in_i] eCW1 ([facility]) Body mass index (BMI) [Ratio] 36.80 kg/m2 36.80 kg/m2 eCW1 ([facility]) Heart rate 86 /min 86 /min eCW1 ([facility]) Respiratory rate 18 /min 18 /min eCW1 ([facility]) Body temperature 96.7 [degF] 96.7 [degF] eCW1 ( [facility]) Systolic blood pressure 138 mm[Hg] 138 mm[Hg] e CW1 ([facility]) Diastolic blood pressure 72 mm[Hg] 72 mm[Hg] eCW1 ([facility]) Body weight 235 [lb_av] 235 [lb_av] eCW1 ([facility]) Body height 67 [in_i] 67 [in_i] eCW1 ([facility]) Body mass index (BMI) [Ratio] 36.80 kg/m2 36.80 kg/m2 eCW1 ([facility]) Heart rate 72 /min 72 /min eCW1 ([facility]) Respiratory rate 18 /min 18 /min eCW1 ([facility]) Body temperature 97.8 [degF] 97.8 [degF] eCW1 ( [facility]) Systolic blood pressure 132 mm[Hg] 132 mm[Hg] [facility] Diastolic blood pressure 74 mm[Hg] 74 mm[Hg] [facility] Body weight 235 [lb_av] 235 [lb_av] eCW1 ([facility]) Body height 67 [in_i] 67 [in_i] eCW1 ([facility]) Respiratory rate 20 /min 20 /min eCW1 ([facility], [facility]) Body temperature 97 [degF] 97 [degF] eCW1 ([facility], [facility]) Systolic blood pressure 124 mm[Hg] 124 mm[Hg] e CW1 ([facility]) Diastolic blood pressure 70 mm[Hg] 70 mm[Hg] eCW[facility]) Body mass index (BMI) [Ratio] 36.80 kg/m2 36.80 kg/m2 eCW1 [facility]) Heart rate 76 /min 76 /min eCW1 ([facility]) Patient Treatment Plan of Care Planned Activity Planned Date Details Description Data Source (s) Co-Enzyme Q10 200 MG 10/09/2020 01:00:00 AM EDT NETSMART ([facility]) May Have - 10/02/2020 12:00:00 AM EDT e CW1 ([facility]) May Have - 10/02/2020 12:00:00 AM EDT e CW1 ([facility]) May Have - 10/02/2020 12:00:00 AM EDT e CW1 ([facility]) May Have - 09/24/2020 12:00:00 AM EDT e CW1 ([facility]) May Have - 09/24/2020 12:00:00 AM EDT e CW1 ([facility]) May Have - 09/24/2020 12:00:00 AM EDT e CW1 ([facility]) May Have - 09/24/2020 12:00:00 AM EDT e CW1 ([facility]) May Have - 09/24/2020 12:00:00 AM EDT e CW1 ([facility]) Vancleave 3 1200 MG 09/19/2020 01:00:00 AM EDT NETSMART ([facility]) Vitamin C 1000 MG 09/19/2020 01:00:00 AM EDT [facility]SM[facility] ([facility]) [place] Extract 250 MG 09/19/2020 01:00:00 AM EDT [facility] ([facility]) Garlic 1500 1500 MG 09/19/2020 01:00:00 AM EDT [facility] ([facility]) Omeprazole 20 MG 09/19/2020 01:00:00 AM EDT [facility] ([facility]) Calcium 600+D 600-400 MG-UNIT 09/19/2020 01:00:00 AM EDT [facility] ([facility]) Vitamin D (Cholecalciferol) 1000 UNIT 09/19/2020 01:00:00 AM EDT [facility] ([facility]) Furosemide 20 MG 09/19/2020 01:00:00 AM EDT [facility] ([facility]) Escitalopram Oxalate 10 MG 09/19/2020 01:00:00 AM EDT [facility] ([facility]) Gabapentin 300 MG 09/19/2020 01:00:00 AM EDT [facility] ([facility]) tiZANidine HCl 2 MG 09/19/2020 01:00:00 AM [facility] Tylenol 8 Hour Arthritis Pain 650 MG 09/19/2020 01:00:00 AM EDT [facility] ([facility]) Turmeric Curcumin 500 MG 09/19/2020 01:00:00 AM EDT [facility] ([facility]) Bacitracin 500 UNIT/GM 09/19/2020 01:00:00 AM EDT [facility] ([facility]) Normal Saline Flush 0.9 % 03/26/2020 12:00:00 AM EST [facility]) Gauze Sponge 4"X4" 03/26/2020 12:00:00 AM EST eCW1 ([facility]) Optifoam 4"X4" 03/26/2020 12:00:00 AM EST eCW1 ([facility]) Normal Saline Flush 0.9 % 03/26/2020 12:00:00 AM EST eCW1 ([facility]) Gauze Sponge 4"X4" 03/26/2020 12:00:00 AM EST eCW1 ([facility]) Gauze Sponge 4"X4" 03/26/2020 12:00:00 AM EST eCW1 [facility]) Optifoam 4"X4" 03/26/2020 12:00:00 AM EST eCW1 ([facility]) Normal Saline Flush 0.9 % 03/26/2020 12:00:00 AM EST eCW1 ([facility]) Gauze Sponge 4"X4" 03/26/2020 12:00:00 AM EST eCW1 ([facility]) Optifoam 4"X4" 03/26/2020 12:00:00 AM EST eCW1 ([facility]) Normal Saline Flush 0.9 % 03/26/2020 12:00:00 AM EST eCW1 ([facility]) Gauze Sponge 4"X4" 03/26/2020 12:00:00 AM EST eCW1 ([facility]) Optifoam 4"X4" 03/26/2020 12:00:00 AM EST eCW1 ([facility]) Normal Saline Flush 0.9 % 03/26/2020 12:00:00 AM EST eCW1 ([facility]) ciclopirox 7.7 MG/ML Topical Cream [Loprox] 03/20/2020 12:00:00 AM EST eCW1 ([facility]) ciclopirox 7.7 MG/ML Topical Cream [Loprox] 03/20/2020 12:00:00 AM EST eCW1 ([facility]) ciclopirox 7.7 MG/ML Topical Cream [Loprox] 03/20/2020 12:00:00 AM EST eCW1 ([facility]) ciclopirox 7.7 MG/ML Topical Cream [Loprox] 03/20/2020 12:00:00 AM EST eCW1 ([facility]) ciclopirox 7.7 MG/ML Topical Cream [Loprox] 03/20/2020 12:00:00 AM EST [facility]CW1 ([facility]) tizanidine 2 MG Oral Tablet 12/04/2019 12:00:00 AM EDT eCW1 ([facility]) tizanidine 2 MG Oral Tablet 12/04/2019 12:00:00 AM EDT eCW1 ([facility]) tizanidine 2 MG Oral Tablet 12/04/2019 12:00:00 AM EDT eCW1 ([facility]) tizanidine 2 MG Oral Tablet 12/04/2019 12:00:00 AM EDT eCW1 ([facility]) tizanidine 2 MG Oral Tablet 12/04/2019 12:00:00 AM EDT eCW1 ([facility]) tizanidine 2 MG Oral Tablet 12/04/2019 12:00:00 AM EDT eCW1 [facility])
[2021-01-08] MEDS ORDERED: tiZANidine 4 MG TAB PO ONE (17:50)
[2021-01-08] MEDS ORDERED: GARL200T2 PO (18:17)
[2021-01-08] MEDS ORDERED: CO Q200C10 PO (18:17)
[2021-01-08] MEDS ORDERED: OLIV250C PO (18:17)
[2021-01-08] MEDS ORDERED: OMEG12004 PO (18:17)
[2021-01-08] MEDS ORDERED: IBUP200T46 PO (18:17)
[2021-01-08] MEDS ORDERED: VITA-243 PO (18:17)
[2021-01-08] MEDS ORDERED: D31000TA2 PO (18:18)
[2021-01-08] MEDS ORDERED: CALC1TAB74 PO (18:18)
[2021-01-08] MEDS ORDERED: LEXA1TAB PO (18:18)
[2021-01-08] MEDS ORDERED: HOME MED LIST COMPLETE! XX SCH (18:20)
[2021-01-08 18:50] LABS: RSV AMPLIFICATION NEGATIVE (NEGATIVE)
[2021-01-08 19:13] LABS: INR 1.12; PROTHROMBIN TIME 14.8 SECONDS (12.7-14.5)
[2021-01-08 19:14] LABS: PARTIAL THROMBOPLASTIN TIME 38.7 SECONDS (25.9-37.0)
[2021-01-08 19:53] LABS: D-DIMER QUANT > 4000 ng/ml (<500)
[2021-01-08] MEDS ORDERED: cefTRIAXone SOD 1 GM in D5W MINI-BAG PLUS 50 ML IV SCH (20:00)
--- NOTE | 2021-01-08 20:32 | ECGEPIP ---
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
[2021-01-08] MEDS ORDERED: DOXYCYCLINE HYCLATE 100 MG in D5W MINI-BAG PLUS 100 ML IV SCH (21:00)
[2021-01-08] MEDS ORDERED: REMDESIVIR 200 MG in NS 250 ML IV ONE (21:00)
[2021-01-08] MEDS: RAMELTEON 8 MG TAB (ROZEREM) PO SCH (21:25)
[2021-01-08] MEDS: guaiFENesin ER 600 MG TAB PO SCH (21:25)
[2021-01-08] MEDS: GABAPENTIN 300 MG CAP PO SCH (21:26)
[2021-01-08] MEDS ORDERED: SODIUM CHLORIDE 0.9% INJ 10 ML SYR IV ONE (23:00)
[2021-01-09 07:41] LABS: HEMATOCRIT 39.1 % (36.0-47.0); HEMOGLOBIN 12.7 g/dl (12.0-15.5); MEAN CORPUSCULAR HEMOGLOBIN 30.4 pg (27.0-33.0); MEAN CORPUSCULAR HGB CONC 32.5 g/dl (32.0-36.5); MEAN CORPUSCULAR VOLUME 93.5 fl (80.0-96.0); PLATELET COUNT, AUTOMATED 260 10^3/uL (150-450); RED BLOOD COUNT 4.18 10^6/uL (4.00-5.40); WHITE BLOOD COUNT 6.8 10^3/uL (4.0-10.0)
[2021-01-09 08:05] LABS: ALBUMIN 2.9 GM/DL (3.2-5.2); ALT/SGPT 24 U/L (12-78); BILIRUBIN,TOTAL 0.5 MG/DL (0.2-1.0); BLOOD UREA NITROGEN 13 MG/DL (7-18); CALCIUM LEVEL 9.3 MG/DL (8.8-10.2); CARBON DIOXIDE LEVEL 26 MEQ/L (21-32); CHLORIDE LEVEL 105 MEQ/L (98-107); CREATININE FOR GFR 0.72 MG/DL (0.55-1.30); GLOMERULAR FILTRATION RATE > 60.0 (>39); GLUCOSE, FASTING 118 MG/DL (70-100); MAGNESIUM LEVEL 2.4 MG/DL (1.8-2.4); POTASSIUM SERUM 4.7 MEQ/L (3.5-5.1); SODIUM LEVEL 139 MEQ/L (136-145); TOTAL PROTEIN 7.3 GM/DL (6.4-8.2)
[2021-01-09] MEDS: ASCORBIC ACID 500 MG TAB PO SCH (08:33)
[2021-01-09] MEDS: GABAPENTIN 300 MG CAP PO SCH ×2 (08:33→23:54)
[2021-01-09] MEDS: guaiFENesin ER 600 MG TAB PO SCH ×2 (08:33→23:55)
[2021-01-09] MEDS: OMEPRAZOLE 20 MG CAP PO SCH (08:33)
[2021-01-09] MEDS: CALCIUM/VITAMIN D 500 MG TAB PO SCH (08:34)
[2021-01-09] MEDS: VITAMIN D 1,000 INTERNATIONAL UNITS TABLET PO SCH (08:34)
[2021-01-09] MEDS: FUROSEMIDE 40 MG TAB PO SCH (08:34)
[2021-01-09] MEDS: ESCITALOPRAM OXALATE 10 MG TAB (LEXAPRO) PO SCH (08:34)
[2021-01-09] MEDS: dexameTHASONE 4 MG/ML 1ML VIAL (J1100 PER 1MG) IV SCH (08:35)
[2021-01-09] MEDS ORDERED: ENOXAPARIN 40MG/0.4ML SYRINGE (J1650 PER 10MG) SC SCH (09:00)
--- NOTE | 2021-01-09 13:39 | IPNPDOC ---
Date Seen The patient was seen on 01/09/21. Progress Note SUBJECTIVE: No acute events overnight. Denies chest pain, increased shortness of breath, fevers, chills, nausea or vomiting. OBJECTIVE: PHYSICAL EXAMINATION: VS: Please see below CONSTITUTIONAL: uncomfortable , AAO x 3 EYES: PERRLA, EOM intact, corrective lenses in place HENT, MOUTH: Normocephalic, atraumatic, moist mucous membranes NECK: SUPPLE, no JVD, no lymphadenopathy, no carotid bruit CV: Regular rate and rhythm, S1S2 normal, no murmurs/rubs/gallops RESPIRATORY: Clear to auscultation bilaterally, no rales/rhonchi/wheezes GI: obese abd. BS positive in 4 quadrants, soft, nontender, nondistended, no rebound or guarding, no organomegaly : Deferred MUSCULOSKELETAL: Normal ROM. No cyanosis, clubbing, swelling, joint deformity, extremity edema INTEGUMENTARY: Redness on b/l buttocks near coccyx, well healing decubiti b/l in this area as well. Intact, no rashes, no lesions, no erythema NEUROLOGIC: Rigidity of the b/l lower ext with pain with movement of them (needs help straightening legs out as could not do for self)- baseline for patient. Cranial Nerves II-XII are intact, no focal deficits PSYCHIATRIC: Mood and affect are normal LABORATORY DATA: Please see below IMAGING: CXR: Dense infiltrate left lung base. Mild right perihilar infiltrate. MICRO: Blood cultures: NG to date Sputum culture: not collected UA neg ASSESSMENT: 80-year-old female past medical history of GERD, Ruggiero's esophagus, Covid positive diagnosis, history of coccyx and ankle decubiti, hypertension, chronic progressive degenerative spastic paralysis, idiopathic (diagnosed 1984), hyperlipidemia, chronic pain/peripheral neuropathy, Vitamin D deficiency admitted as acute inpatient for inability to care for self, COVID-19 infection, r/o superimposed bacterial PNA. PLAN: COVID-19 infection, rule out superimposed bacterial pneumonia -Down to 3 L nasal cannula, saturating 93% -Currently saturating well on 2 L nasal cannula -Chest x-ray above -Procalcitonin low, D-dimer >4K -Micro above -Stopped doxycycline, ceftriaxone b/c procalitonin low -Continue with dexamethasone, remdesivir, incentive spirometer every 2 hours while awake, awake pronation if able with handicap, albuterol as needed, Mucinex, supplemental O2 as needed -Covid labs per protocol -Precautions per Covid protocol Debility, acute on chronic and 2/2 to chronic progressive degenerative spastic paralysis, idiopathic (diagnosed 1984) with COVID 19 infection -Relies on to do all activities of daily living with her, he is currently hospitalized and she is unable to care for self -Worsened since infection has been present -PT ordered f/u suggestions, treatment of chronic and acute illnesses below -Optimize nutritional status Elevated troponin possibly 2/2 ischemic demand/ hypoxia -Trop decreasing -ECG unremarkable for T wave or ST changes -Telemetry Chronic progressive degenerative spastic paralysis, idiopathic (diagnosed 1984) -Mostly bedbound, uses wheelchair with assistance as well -All activities of daily living performed by at home -Continue with home gabapentin, tizanidine GERD / Ruggiero's esophagus -PPI Coccyx decubiti, chronic -Wound care -Follows with Dr. Jordan as outpatient HTN -Continue with home Lasix HLD -Not on statin med Vitamin D deficiency -Not on vitamin supplement DVT prophylaxis -Lovenox DISPOSITION: Admitted as acute inpatient. PT consulted to see. Cannot return home if patient's caregiver is also admitted with COVID-19. May require placement. To d/w PFS. VS, I&O, 24H, Fishbone Vital Signs/I&O Vital Signs Date Time Temp Pulse Resp B/P (MAP) Pulse Ox O2 Delivery O2 Flow Rate FiO2 01/09/21 08:49 96.2 75 136/64 (88) 93 01/09/21 06:00 18 Nasal Cannula 3.0 I&O- Last 24 Hours up to 6 AM 01/09/21 06:00 Intake Total 440 ml Output Total 500 ml Balance -60 ml Laboratory Data 24H LABS Laboratory Tests 2 01/08/21 15:12: Anion Gap 7L, Glomerular Filtration Rate > 60.0, Calcium Level 9.0, Total Bilirubin 0.6, Aspartate Amino Transf (AST/SGOT) 22, Alanine Aminotransferase (ALT/SGPT) 25, Alkaline Phosphatase 94, Lactate Dehydrogenase 146, Total Protein 7.6, Albumin 3.1L, Albumin/Globulin Ratio 0.7L, Procalcitonin <0.05 01/08/21 15:16: Urine Color YELLOW, Urine Appearance CLEAR, Urine pH 7.0, Urine Specific [place] 1.012, Urine Protein NEGATIVE, Urine Glucose (UA) NEGATIVE, Urine Ketones NEGATIVE, Urine Blood NEGATIVE, Urine Nitrite NEGATIVE, Urine Bilirubin NEGATIVE, Urine Urobilinogen 0.2, Urine Leukocyte Esterase NEGATIVE, Urine WBC (Auto) 0, Urine RBC (Auto) 2, Urine Hyaline Casts (Auto) 0, Urine Bacteria (Auto) NEGATIVE, Urine Squamous Epithelial Cells 0, Urine Mucus (Auto) SMALL, Urine Sperm (Auto) , Lactic Acid Level 1.0 01/08/21 15:20: POC Troponin I (Misc) 0.22H 01/08/21 17:45: Prothrombin Time 14.8H, Prothromb Time International Ratio 1.12, Activated Partial Thromboplast Time 38.7H, D-Dimer, Quantitative > 4000H, Troponin I High Sensitivity 326.0*H 01/08/21 18:03: Coronavirus (COVID-19)(PCR) POSITIVEA, Influenza Type A (RT-PCR) NEGATIVE, Influenza Type B (RT-PCR) NEGATIVE, Respiratory Syncytial Virus (PCR) NEGATIVE 01/08/21 22:09: Troponin I High Sensitivity 197.0*H 01/09/21 07:05: Nucleated Red Blood Cells % (auto) 0.0, Anion Gap 8, Glomerular Filtration Rate > 60.0, Calcium Level 9.3, Magnesium Level 2.4, Total Bilirubin 0.5, Aspartate Amino Transf (AST/SGOT) 21, Alanine Aminotransferase (ALT/SGPT) 24, Alkaline Phosphatase 87, Total Protein 7.3, Albumin 2.9L, Albumin/Globulin Ratio 0.7L CBC/BMP Laboratory Tests 01/08/21 15:12 01/09/21 07:05 Microbiology Microbiology 01/08/21 Blood Culture, Received Pending 01/08/21 Blood Culture, Received Pending Kenia Dickens MD Jan 09, 2021 13:39
[2021-01-09 13:59] LABS: NT-PRO BNP 435 PG/ML (<450)
[2021-01-09 19:00] VITALS: BP 118/65
[2021-01-09 20:00] VITALS: BP 115/55; O2SAT 92
[2021-01-09] MEDS: RAMELTEON 8 MG TAB (ROZEREM) PO SCH (23:54)
[2021-01-09] MEDS: ENOXAPARIN 40MG/0.4ML SYRINGE (J1650 PER 10MG) SC SCH (23:55)
[2021-01-10] VITALS (7 sets, daily range): BP systolic 116–131; BP diastolic 57–77; O2SAT 92–95
[2021-01-10] MEDS: REMDESIVIR 100 MG in NS 250 ML IV SCH ×2 (00:10→21:25)
[2021-01-10] MEDS: SODIUM CHLORIDE 0.9% INJ 10 ML SYR IV SCH ×2 (01:19→22:38)
[2021-01-10 08:22] LABS: HEMATOCRIT 37.3 % (36.0-47.0); MEAN CORPUSCULAR HEMOGLOBIN 29.9 pg (27.0-33.0); MEAN CORPUSCULAR HGB CONC 32.2 g/dl (32.0-36.5); MEAN CORPUSCULAR VOLUME 92.8 fl (80.0-96.0); PLATELET COUNT, AUTOMATED 250 10^3/uL (150-450); RED BLOOD COUNT 4.02 10^6/uL (4.00-5.40); WHITE BLOOD COUNT 8.7 10^3/uL (4.0-10.0)
[2021-01-10 08:39] LABS: INR 1.21; PROTHROMBIN TIME 15.7 SECONDS (12.7-14.5)
[2021-01-10 08:40] LABS: PARTIAL THROMBOPLASTIN TIME 41.9 SECONDS (25.9-37.0)
[2021-01-10] MEDS: ASCORBIC ACID 500 MG TAB PO SCH (08:42)
[2021-01-10] MEDS: VITAMIN D 1,000 INTERNATIONAL UNITS TABLET PO SCH (08:42)
[2021-01-10] MEDS: guaiFENesin ER 600 MG TAB PO SCH ×2 (08:42→21:27)
[2021-01-10] MEDS: dexameTHASONE 4 MG/ML 1ML VIAL (J1100 PER 1MG) IV SCH (08:42)
[2021-01-10] MEDS: OMEPRAZOLE 20 MG CAP PO SCH (08:42)
[2021-01-10] MEDS: GABAPENTIN 300 MG CAP PO SCH ×2 (08:43→21:27)
[2021-01-10] MEDS: ESCITALOPRAM OXALATE 10 MG TAB (LEXAPRO) PO SCH (08:43)
[2021-01-10] MEDS: CALCIUM/VITAMIN D 500 MG TAB PO SCH (08:43)
[2021-01-10] MEDS: FUROSEMIDE 40 MG TAB PO SCH (08:43)
[2021-01-10 08:45] LABS: ALBUMIN 2.7 GM/DL (3.2-5.2); ALT/SGPT 24 U/L (12-78); BILIRUBIN,TOTAL 0.4 MG/DL (0.2-1.0); BLOOD UREA NITROGEN 18 MG/DL (7-18); CALCIUM LEVEL 8.9 MG/DL (8.8-10.2); CARBON DIOXIDE LEVEL 26 MEQ/L (21-32); CHLORIDE LEVEL 106 MEQ/L (98-107); CREATININE FOR GFR 0.68 MG/DL (0.55-1.30); FERRITIN 716 NG/ML (8-252); GLOMERULAR FILTRATION RATE > 60.0 (>39); GLUCOSE, FASTING 91 MG/DL (70-100); LDH LACTATE DEHYDROGENASE 117 U/L (84-246); MAGNESIUM LEVEL 2.3 MG/DL (1.8-2.4); NT-PRO BNP 661 PG/ML (<450); SODIUM LEVEL 140 MEQ/L (136-145); TOTAL PROTEIN 6.8 GM/DL (6.4-8.2)
[2021-01-10] MEDS: ENOXAPARIN 40MG/0.4ML SYRINGE (J1650 PER 10MG) SC SCH ×2 (08:45→21:27)
--- NOTE | 2021-01-10 13:22 | IPNPDOC ---
Date Seen The patient was seen on 01/10/21. Progress Note SUBJECTIVE: Placed on oxygen early this morning, tapering down. No acute events overnight. Denies chest pain, increased shortness of breath, fevers, chills, nausea or vomiting. OBJECTIVE: PHYSICAL EXAMINATION: VS: Please see below CONSTITUTIONAL: Laying in bed in no acute distress, AAO x 3 EYES: PERRLA, EOM intact, corrective lenses in place HENT, MOUTH: Normocephalic, atraumatic, moist mucous membranes NECK: SUPPLE, no JVD, no lymphadenopathy, no carotid bruit CV: Regular rate and rhythm, S1S2 normal, no murmurs/rubs/gallops RESPIRATORY: Clear to auscultation bilaterally, no rales/rhonchi/wheezes GI: obese abd. BS positive in 4 quadrants, soft, nontender, nondistended, no rebound or guarding, no organomegaly : Deferred MUSCULOSKELETAL: Normal ROM. No cyanosis, clubbing, swelling, joint deformity, extremity edema INTEGUMENTARY: Redness on b/l buttocks near coccyx, well healing decubiti b/l in this area as well. Intact, no rashes, no lesions, no erythema NEUROLOGIC: Rigidity of the b/l lower ext with pain with movement of them (needs help straightening legs out as could not do for self)-chronic, baseline for patient. Cranial Nerves II-XII are intact, no focal deficits PSYCHIATRIC: Mood and affect are normal LABORATORY DATA: Please see below IMAGING: CXR: Dense infiltrate left lung base. Mild right perihilar infiltrate. MICRO: Blood cultures: NG to date Sputum culture: not collected UA neg ASSESSMENT: 80-year-old female past medical history of GERD, Ruggiero's esophagus, Covid positive diagnosis, history of coccyx and ankle decubiti, hypertension, chronic progressive degenerative spastic paralysis, idiopathic (diagnosed 1984), hyperlipidemia, chronic pain/peripheral neuropathy, Vitamin D deficiency admitted as acute inpatient for inability to care for self, COVID-19 infection, r/o superimposed bacterial PNA. PLAN: COVID-19 infection -Down to 1 L nasal cannula, saturating 93% -Chest x-ray above -Procalcitonin low, D-dimer >4K -Micro above -Continue with dexamethasone, remdesivir, incentive spirometer every 2 hours while awake, awake pronation if able with handicap, albuterol as needed, Mucinex, supplemental O2 as needed -Covid labs per protocol -Precautions per Covid protocol Debility, acute on chronic and 2/2 to chronic progressive degenerative spastic paralysis, idiopathic (diagnosed 1984) with COVID 19 infection -Relies on to do all activities of daily living with her, he is currently hospitalized and she is unable to care for self -Worsened since infection has been present -PT: Pt. currently requires modA x 1 to sit EOB; due to low endurance unable to safely attempt transfer with 1A at this time. Recommending skilled physical therapy to improve functional transfers. -Optimize nutritional status Elevated troponin possibly 2/2 ischemic demand/ hypoxia -Trop decreasing steadily -ECG unremarkable for T wave or ST changes -Telemetry Chronic progressive degenerative spastic paralysis, idiopathic (diagnosed 1984) -Mostly bedbound, uses wheelchair with assistance as well -All activities of daily living performed by at home -Continue with home gabapentin, tizanidine -PT GERD / Ruggiero's esophagus -PPI Coccyx decubiti, chronic -Wound care -Follows with Dr. Jordan as outpatient HTN -Continue with home Lasix HLD -Not on statin med Vitamin D deficiency -Not on vitamin supplement DVT prophylaxis -Lovenox DISPOSITION: Admitted as acute inpatient. PT to continue to see. Cannot return home if patient's caregiver is also admitted with COVID-19, likely require placement. To d/w PFS after weekend. VS, I&O, 24H, Fishbone Vital Signs/I&O Vital Signs Date Time Temp Pulse Resp B/P (MAP) Pulse Ox O2 Delivery O2 Flow Rate FiO2 01/10/21 12:00 93 Nasal Cannula 1.0 01/10/21 04:00 97.7 71 18 131/66 (87) Laboratory Data 24H LABS Laboratory Tests 2 01/10/21 06:53: Nucleated Red Blood Cells % (auto) 0.0, Prothrombin Time 15.7H, Prothromb Time International Ratio 1.21, Activated Partial Thromboplast Time 41.9H, Fibrinogen 361, Anion Gap 8, Glomerular Filtration Rate > 60.0, Calcium Level 8.9, Magnesium Level 2.3, Ferritin 716H, Total Bilirubin 0.4, Aspartate Amino Transf (AST/SGOT) 19, Alanine Aminotransferase (ALT/SGPT) 24, Alkaline Phosphatase 80, Lactate Dehydrogenase 117, Total Creatine Kinase 185#, Troponin I High Sensitivity 149.0*H, YZ-Cgy-B-Type Natriuretic Peptide 661H, Total Protein 6.8, Albumin 2.7L, Albumin/Globulin Ratio 0.7L, Procalcitonin <0.05 CBC/BMP Laboratory Tests 01/10/21 06:53 Microbiology Microbiology 01/08/21 Blood Culture - Preliminary, Resulted No growth after 24 hours . All specim... 01/08/21 Blood Culture - Preliminary, Resulted No growth after 24 hours . All specim... Kenia Dickens MD Jan 10, 2021 13:22
[2021-01-10 16:11] LABS: MYCOPLASMA PNEUMONIAE IgG 1160 U/mL (0-99); MYCOPLASMA PNEUMONIAE IgM <770 U/mL (0-769)
[2021-01-10] MEDS: RAMELTEON 8 MG TAB (ROZEREM) PO SCH (21:27)
[2021-01-10] MEDS: tiZANidine 4 MG TAB PO PRN (21:27)
[2021-01-11] VITALS: O2SAT 97
[2021-01-11 04:00] VITALS: BP 125/68; O2SAT 97
[2021-01-11 08:00] VITALS: O2SAT 95
[2021-01-11] MEDS: ESCITALOPRAM OXALATE 10 MG TAB (LEXAPRO) PO SCH (08:33)
[2021-01-11] MEDS: ASCORBIC ACID 500 MG TAB PO SCH (08:33)
[2021-01-11] MEDS: guaiFENesin ER 600 MG TAB PO SCH ×2 (08:33→21:37)
[2021-01-11] MEDS: VITAMIN D 1,000 INTERNATIONAL UNITS TABLET PO SCH (08:33)
[2021-01-11] MEDS: ENOXAPARIN 40MG/0.4ML SYRINGE (J1650 PER 10MG) SC SCH ×2 (08:34→21:39)
[2021-01-11] MEDS: dexameTHASONE 4 MG/ML 1ML VIAL (J1100 PER 1MG) IV SCH (08:34)
[2021-01-11] MEDS: CALCIUM/VITAMIN D 500 MG TAB PO SCH (08:34)
[2021-01-11] MEDS: OMEPRAZOLE 20 MG CAP PO SCH (08:34)
[2021-01-11] MEDS: FUROSEMIDE 40 MG TAB PO SCH (08:34)
[2021-01-11] MEDS: GABAPENTIN 300 MG CAP PO SCH ×2 (08:34→21:34)
[2021-01-11 09:07] LABS: HEMATOCRIT 40.1 % (36.0-47.0); HEMOGLOBIN 12.8 g/dl (12.0-15.5); MEAN CORPUSCULAR HEMOGLOBIN 29.9 pg (27.0-33.0); MEAN CORPUSCULAR HGB CONC 31.9 g/dl (32.0-36.5); MEAN CORPUSCULAR VOLUME 93.7 fl (80.0-96.0); PLATELET COUNT, AUTOMATED 249 10^3/uL (150-450); RED BLOOD COUNT 4.28 10^6/uL (4.00-5.40); WHITE BLOOD COUNT 8.1 10^3/uL (4.0-10.0)
[2021-01-11 09:27] LABS: ALBUMIN 2.7 GM/DL (3.2-5.2); ALT/SGPT 30 U/L (12-78); BILIRUBIN,TOTAL 0.5 MG/DL (0.2-1.0); BLOOD UREA NITROGEN 24 MG/DL (7-18); CALCIUM LEVEL 8.9 MG/DL (8.8-10.2); CARBON DIOXIDE LEVEL 28 MEQ/L (21-32); CHLORIDE LEVEL 105 MEQ/L (98-107); CREATININE FOR GFR 0.71 MG/DL (0.55-1.30); GLOMERULAR FILTRATION RATE > 60.0 (>39); GLUCOSE, FASTING 80 MG/DL (70-100); POTASSIUM SERUM 3.9 MEQ/L (3.5-5.1); SODIUM LEVEL 140 MEQ/L (136-145); TOTAL PROTEIN 6.7 GM/DL (6.4-8.2)
[2021-01-11 12:01] VITALS: O2SAT 93
--- NOTE | 2021-01-11 13:56 | IPNPDOC ---
Date Seen The patient was seen on 01/11/21. Progress Note SUBJECTIVE: Remains on low-dose oxygen. No acute events overnight. Denies chest pain, increased shortness of breath, fevers, chills, nausea or vomiting. OBJECTIVE: PHYSICAL EXAMINATION: VS: Please see below CONSTITUTIONAL: Laying in bed, NAD, AAO x 3 EYES: PERRLA, EOM intact, corrective lenses in place HENT, MOUTH: Normocephalic, atraumatic, moist mucous membranes NECK: SUPPLE, no JVD, no lymphadenopathy, no carotid bruit CV: Regular rate and rhythm, S1S2 normal, no murmurs/rubs/gallops RESPIRATORY: Clear to auscultation bilaterally, no rales/rhonchi/wheezes GI: obese abd. BS positive in 4 quadrants, soft, nontender, nondistended, no rebound or guarding, no organomegaly : Deferred MUSCULOSKELETAL: Normal ROM. No cyanosis, clubbing, swelling, joint deformity, extremity edema INTEGUMENTARY: Redness on b/l buttocks near coccyx, decubiti b/l in this area as well. Intact, no rashes, no lesions, no erythema NEUROLOGIC: Rigidity of the b/l lower ext with pain with movement of them- chronic, baseline for patient. Cranial Nerves II-XII are intact, no focal deficits PSYCHIATRIC: Mood and affect are normal LABORATORY DATA: Please see below IMAGING: CXR: Dense infiltrate left lung base. Mild right perihilar infiltrate. MICRO: Blood cultures: NG to date Sputum culture: not collected UA neg ASSESSMENT: 80-year-old female past medical history of GERD, Ruggiero's e sophagus, Covid positive diagnosis, history of coccyx and ankle decubiti, hypertension, chronic progressive degenerative spastic paralysis, idiopathic (diagnosed 1984), hyperlipidemia, chronic pain/peripheral neuropathy, Vitamin D deficiency admitted as acute inpatient for inability to care for self, COVID-19 infection, r/o superimposed bacterial PNA. PLAN: COVID-19 infection -Down to 1 L nasal cannula, saturating 93% -Chest x-ray above -Procalcitonin low, D-dimer >4K -Micro above -Continue with dexamethasone, remdesivir, incentive spirometer every 2 hours while awake, awake pronation if able with handicap, albuterol as needed, Mucinex, supplemental O2 as needed -Covid labs per protocol -Precautions per Covid protocol Debility, acute on chronic and 2/2 to chronic progressive degenerative spastic paralysis, idiopathic (diagnosed 1984) with COVID 19 infection -Relies on to do all activities of daily living with her, he is currently hospitalized and she is unable to care for self -Worsened since infection has been present -PT: Pt. currently requires modA x 1 to sit EOB; due to low endurance unable to safely attempt transfer with 1A at this time. Recommending skilled physical therapy to improve functional transfers. -Optimize nutritional status Elevated troponin possibly 2/2 ischemic demand/ hypoxia -Trop decreasing slowly -ECG unremarkable for T wave or ST changes -Telemetry Chronic progressive degenerative spastic paralysis, idiopathic (diagnosed 1984) -Mostly bedbound, uses wheelchair with assistance as well -All activities of daily living performed by at home -Continue with home gabapentin, tizanidine -PT GERD / Ruggiero's esophagus -PPI Coccyx decubiti, chronic -Wound care -Follows with Dr. Jordan as outpatient HTN -Continue with home Lasix HLD -Not on statin med Vitamin D deficiency -Not on vitamin supplement DVT prophylaxis -Lovenox DISPOSITION: Admitted as acute inpatient. PT to continue to see. Cannot return home if patient's caregiver is also admitted with COVID-19, requires placement. To d/w PFS after weekend. VS, I&O, 24H, [place] Vital Signs/I&O Vital Signs Date Time Temp Pulse Resp B/P (MAP) Pulse Ox O2 Delivery O2 Flow Rate FiO2 01/11/21 12:01 93 Nasal Cannula 1.0 01/11/21 04:00 97.1 60 18 125/68 (87) I&O- Last 24 Hours up to 6 AM 01/11/21 06:00 Intake Total 830 ml Balance 830 ml Laboratory Data 24H LABS Laboratory Tests 2 01/11/21 08:01: Nucleated Red Blood Cells % (auto) 0.0, Anion Gap 7L, Glomerular Filtration Rate > 60.0, Calcium Level 8.9, Total Bilirubin 0.5, Aspartate Amino Transf (AST/SGOT) 21, Alanine Aminotransferase (ALT/SGPT) 30, Alkaline Phosphatase 79, Total Protein 6.7, Albumin 2.7L, Albumin/Globulin Ratio 0.7L CBC/BMP Laboratory Tests 01/11/21 08:01 Microbiology Microbiology 01/08/21 Blood Culture - Preliminary, Resulted No Growth after 48 hours. All Specime... 01/08/21 Blood Culture - Preliminary, Resulted No Growth after 48 hours. All Specime... Kenia Dickens MD Jan 11, 2021 13:56
[2021-01-11 14:00] VITALS: BP 111/55
[2021-01-11 20:00] VITALS: BP 115/65; O2SAT 94
[2021-01-11] MEDS: RAMELTEON 8 MG TAB (ROZEREM) PO SCH (21:34)
[2021-01-11] MEDS: tiZANidine 4 MG TAB PO PRN (21:35)
[2021-01-11] MEDS: REMDESIVIR 100 MG in NS 250 ML IV SCH (21:39)
[2021-01-11] MEDS: SODIUM CHLORIDE 0.9% INJ 10 ML SYR IV SCH (22:44)
[2021-01-12] VITALS (7 sets, daily range): BP systolic 121–131; BP diastolic 64–72; O2SAT 94–97
[2021-01-12] MEDS ORDERED: carisoprodoL 350 MG TAB PO PRN (01:50)
[2021-01-12] MEDS: ACETAMINOPHEN TAB 650MG DOSE (2X325MG) PO PRN ×2 (02:15→09:08)
[2021-01-12] MEDS: ANALGESIC BALM CRM 3OZ TOP PRN (02:16)
[2021-01-12 07:58] LABS: HEMATOCRIT 41.1 % (36.0-47.0); HEMOGLOBIN 13.3 g/dl (12.0-15.5); MEAN CORPUSCULAR HEMOGLOBIN 30.1 pg (27.0-33.0); MEAN CORPUSCULAR HGB CONC 32.4 g/dl (32.0-36.5); PLATELET COUNT, AUTOMATED 259 10^3/uL (150-450); RED BLOOD COUNT 4.42 10^6/uL (4.00-5.40); WHITE BLOOD COUNT 8.6 10^3/uL (4.0-10.0)
[2021-01-12 08:10] LABS: INR 1.14
[2021-01-12 08:11] LABS: PARTIAL THROMBOPLASTIN TIME 39.6 SECONDS (25.9-37.0)
[2021-01-12 08:34] LABS: ALBUMIN 2.7 GM/DL (3.2-5.2); ALT/SGPT 40 U/L (12-78); BILIRUBIN,TOTAL 0.5 MG/DL (0.2-1.0); BLOOD UREA NITROGEN 31 MG/DL (7-18); CARBON DIOXIDE LEVEL 28 MEQ/L (21-32); CHLORIDE LEVEL 104 MEQ/L (98-107); CREATININE FOR GFR 0.71 MG/DL (0.55-1.30); FERRITIN 706 NG/ML (8-252); GLOMERULAR FILTRATION RATE > 60.0 (>39); GLUCOSE, FASTING 92 MG/DL (70-100); LDH LACTATE DEHYDROGENASE 87 U/L (84-246); NT-PRO BNP 109 PG/ML (<450); POTASSIUM SERUM 3.6 MEQ/L (3.5-5.1); SODIUM LEVEL 138 MEQ/L (136-145)
[2021-01-12] MEDS: OMEPRAZOLE 20 MG CAP PO SCH (09:04)
[2021-01-12] MEDS: GABAPENTIN 300 MG CAP PO SCH ×2 (09:04→20:11)
[2021-01-12] MEDS: ASCORBIC ACID 500 MG TAB PO SCH (09:04)
[2021-01-12] MEDS: CALCIUM/VITAMIN D 500 MG TAB PO SCH (09:05)
[2021-01-12] MEDS: VITAMIN D 1,000 INTERNATIONAL UNITS TABLET PO SCH (09:05)
[2021-01-12] MEDS: guaiFENesin ER 600 MG TAB PO SCH ×2 (09:06→20:11)
[2021-01-12] MEDS: FUROSEMIDE 40 MG TAB PO SCH (09:07)
[2021-01-12] MEDS: ESCITALOPRAM OXALATE 10 MG TAB (LEXAPRO) PO SCH (09:08)
[2021-01-12] MEDS: dexameTHASONE 4 MG/ML 1ML VIAL (J1100 PER 1MG) IV SCH (09:09)
[2021-01-12] MEDS: ENOXAPARIN 40MG/0.4ML SYRINGE (J1650 PER 10MG) SC SCH ×2 (09:09→20:12)
--- NOTE | 2021-01-12 15:55 | IPNPDOC ---
Date Seen The patient was seen on 01/12/21. Progress Note SUBJECTIVE: Remains on low-dose oxygen, 1-2 L NC. Started Po prednisone, stopped dexamethasone. To receive last dose of remdesevir 01/13/21. No acute events overnight. Denies chest pain, increased shortness of breath, fevers, chills, nausea or vomiting. OBJECTIVE: PHYSICAL EXAMINATION: VS: Remains on RA-2 L NC intermittently. CONSTITUTIONAL: Laying in bed, NAD, AAO x 3 EYES: PERRLA, EOM intact, corrective lenses in place HENT, MOUTH: Normocephalic, atraumatic, moist mucous membranes NECK: SUPPLE, no JVD, no lymphadenopathy, no carotid bruit CV: Regular rate and rhythm, S1S2 normal, no murmurs/rubs/gallops RESPIRATORY: Clear to auscultation bilaterally, no rales/rhonchi/wheezes GI: obese abd. BS positive in 4 quadrants, soft, nontender, nondistended, no rebound or guarding, no organomegaly : Deferred MUSCULOSKELETAL: Normal ROM. No cyanosis, clubbing, swelling, joint deformity, extremity edema INTEGUMENTARY: Redness on b/l buttocks near coccyx, decubiti b/l in this area as well. Intact, no rashes, no lesions, no erythema NEUROLOGIC: Rigidity of the b/l lower ext with pain with movement of them- chronic, baseline for patient. Cranial Nerves II-XII are intact, no focal deficits PSYCHIATRIC: Mood and affect are normal LABORATORY DATA: Please see below IMAGING: CXR: Dense infiltrate left lung base. Mild right perihilar infiltrate. MICRO: Blood cultures: NG to date Sputum culture: not collected UA neg ASSESSMENT: 80-year-old female past medical history of GERD, Ruggiero's esophagus, Covid positive diagnosis, history of coccyx and ankle decubiti, hypertension, chronic progressive degenerative spastic paralysis, idiopathic (diagnosed 1984), hyperlipidemia, chronic pain/peripheral neuropathy, Vitamin D deficiency admitted as acute inpatient for inability to care for self, COVID-19 infection, r/o superimposed bacterial PNA. PLAN: COVID-19 PNA -Down to RA-2 L nasal cannula, saturating 93% -Chest x-ray above -Procalcitonin low, D-dimer >4K -Micro above -stopped dexamethasone and started PO prednisone taper, remdesivir last day is 01/13/21. C/w incentive spirometer every 2 hours while awake, awake pronation if able with handicap, albuterol as needed, Mucinex -Covid labs per protocol -Precautions per Covid protocol Debility, acute on chronic and 2/2 to chronic progressive degenerative spastic paralysis, idiopathic (diagnosed 1984) with COVID 19 infection -Relies on to do all activities of daily living with her, he is currentl y hospitalized and she is unable to care for self -Worsened since infection has been present -PT: Pt. currently requires modA x 1 to sit EOB; due to low endurance unable to safely attempt transfer with 1A at this time. Recommending skilled physical therapy to improve functional transfers. -C/w PT while here -Optimize nutritional status Elevated troponin possibly 2/2 ischemic demand/ hypoxia -Trop now wnl -ECG unremarkable for T wave or ST changes -Telemetry Chronic progressive degenerative spastic paralysis, idiopathic (diagnosed 1984) -Mostly bedbound, uses wheelchair with assistance as well -All activities of daily living performed by at home -Continue with home gabapentin, tizanidine -PT GERD / Ruggiero's esophagus -PPI Coccyx decubiti, chronic -Wound care -Follows with Dr. Jordan as outpatient HTN -Continue with home Lasix HLD -Not on statin med Vitamin D deficiency -Not on vitamin supplement DVT prophylaxis -Lovenox DISPOSITION: Admitted as acute inpatient. Cannot return home if patient's caregiver is also admitted with COVID-19, requires placement. discussed with Dmitriy MARTINEZ today. Making ALC today. VS, I&O, 24H, Fishbone Vital Signs/I&O Vital Signs Date Time Temp Pulse Resp B/P (MAP) Pulse Ox O2 Delivery O2 Flow Rate FiO2 01/12/21 14:44 98.1 80 17 131/72 (91) 93 Room Air 01/12/21 04:00 2.0 I&O- Last 24 Hours up to 6 AM 01/12/21 05:59 Intake Total 1460 ml Output Total 300 ml Balance 1160 ml Laboratory Data 24H LABS Laboratory Tests 2 01/12/21 07:14: Nucleated Red Blood Cells % (auto) 0.0, Prothrombin Time 15.0H, Prothromb Time International Ratio 1.14, Activated Partial Thromboplast Time 39.6H, Fibrinogen 317, Anion Gap 6L, Glomerular Filtration Rate > 60.0, Calcium Level 9.0, Ferritin 706H, Total Bilirubin 0.5, Aspartate Amino Transf (AST/SGOT) 25, Alanine Aminotransferase (ALT/SGPT) 40, Alkaline Phosphatase 75, Lactate Dehydrogenase 87, Total Creatine Kinase 48, Troponin I High Sensitivity 50.0, TP-Zsc-[id number]-Type Natriuretic Peptide 109, Total Protein 7.0, Albumin 2.7L, Albumin/Globulin Ratio 0.6L, Procalcitonin <0.05 CBC/BMP Laboratory Tests 01/12/21 07:14 Microbiology Microbiology 01/08/21 Blood Culture - Preliminary, Resulted No Growth after 72 hours. All specime... 01/08/21 Blood Culture - Preliminary, Resulted No Growth after 72 hours. All specime... Kenia Dickens MD Jan 12, 2021 15:55
[2021-01-12] MEDS: REMDESIVIR 100 MG in NS 250 ML IV SCH (20:10)
[2021-01-12] MEDS: RAMELTEON 8 MG TAB (ROZEREM) PO SCH (20:10)
[2021-01-12] MEDS: SODIUM CHLORIDE 0.9% INJ 10 ML SYR IV SCH (22:04)
[2021-01-13] VITALS: O2SAT 95
[2021-01-13 04:00] VITALS: O2SAT 95
[2021-01-13 06:00] VITALS: BP 148/79
[2021-01-13 07:41] LABS: HEMATOCRIT 42.6 % (36.0-47.0); HEMOGLOBIN 13.7 g/dl (12.0-15.5); MEAN CORPUSCULAR HEMOGLOBIN 29.6 pg (27.0-33.0); MEAN CORPUSCULAR HGB CONC 32.2 g/dl (32.0-36.5); PLATELET COUNT, AUTOMATED 264 10^3/uL (150-450); RED BLOOD COUNT 4.63 10^6/uL (4.00-5.40); WHITE BLOOD COUNT 9.9 10^3/uL (4.0-10.0)
[2021-01-13 08:00] VITALS: O2SAT 94
[2021-01-13 08:07] LABS: ALBUMIN 2.6 GM/DL (3.2-5.2); ALT/SGPT 52 U/L (12-78); BILIRUBIN,TOTAL 0.5 MG/DL (0.2-1.0); BLOOD UREA NITROGEN 32 MG/DL (7-18); CALCIUM LEVEL 8.8 MG/DL (8.8-10.2); CARBON DIOXIDE LEVEL 29 MEQ/L (21-32); CHLORIDE LEVEL 105 MEQ/L (98-107); CREATININE FOR GFR 0.75 MG/DL (0.55-1.30); GLOMERULAR FILTRATION RATE > 60.0 (>39); GLUCOSE, FASTING 90 MG/DL (70-100); POTASSIUM SERUM 3.7 MEQ/L (3.5-5.1); SODIUM LEVEL 140 MEQ/L (136-145); TOTAL PROTEIN 7.1 GM/DL (6.4-8.2)
[2021-01-13] MEDS: CALCIUM/VITAMIN D 500 MG TAB PO SCH (08:32)
[2021-01-13] MEDS: VITAMIN D 1,000 INTERNATIONAL UNITS TABLET PO SCH (08:32)
[2021-01-13] MEDS: GABAPENTIN 300 MG CAP PO SCH ×2 (08:32→21:37)
[2021-01-13] MEDS: ASCORBIC ACID 500 MG TAB PO SCH (08:32)
[2021-01-13] MEDS: OMEPRAZOLE 20 MG CAP PO SCH (08:32)
[2021-01-13] MEDS: predniSONE 20 MG TAB PO SCH (08:33)
[2021-01-13] MEDS: guaiFENesin ER 600 MG TAB PO SCH ×2 (08:34→21:37)
[2021-01-13] MEDS: ESCITALOPRAM OXALATE 10 MG TAB (LEXAPRO) PO SCH (08:34)
[2021-01-13] MEDS: FUROSEMIDE 40 MG TAB PO SCH (08:34)
[2021-01-13] MEDS: ENOXAPARIN 40MG/0.4ML SYRINGE (J1650 PER 10MG) SC SCH ×2 (08:35→21:38)
[2021-01-13] MEDS: DOCUSATE SODIUM 100MG CAPSULE PO SCH ×2 (09:24→21:37)
[2021-01-13] MEDS: ACETAMINOPHEN TAB 650MG DOSE (2X325MG) PO PRN (09:24)
[2021-01-13] MEDS ORDERED: MIRALAX *UNIT DOSE* 17GM PACKET PO PRN (19:40)
[2021-01-13] MEDS ORDERED: GLYCERIN ADULT SUPP PR PRN (19:40)
[2021-01-13] MEDS ORDERED: MOM 30ML SUSPENSION UDC PO PRN (19:40)
[2021-01-13] MEDS: ANALGESIC BALM CRM 3OZ TOP PRN (21:45)
[2021-01-14] MEDS: RAMELTEON 8 MG TAB (ROZEREM) PO SCH (00:13)
[2021-01-14] MEDS: tiZANidine 4 MG TAB PO PRN (00:36)
[2021-01-14] MEDS: ANALGESIC BALM CRM 3OZ TOP PRN ×2 (00:52→21:17)
[2021-01-14 06:35] LABS: HEMOGLOBIN 13.8 g/dl (12.0-15.5); MEAN CORPUSCULAR HEMOGLOBIN 30.4 pg (27.0-33.0); MEAN CORPUSCULAR HGB CONC 32.9 g/dl (32.0-36.5); MEAN CORPUSCULAR VOLUME 92.5 fl (80.0-96.0); PLATELET COUNT, AUTOMATED 247 10^3/uL (150-450); RED BLOOD COUNT 4.54 10^6/uL (4.00-5.40); WHITE BLOOD COUNT 10.7 10^3/uL (4.0-10.0)
[2021-01-14 06:43] LABS: INR 1.07; PROTHROMBIN TIME 14.3 SECONDS (12.7-14.5)
[2021-01-14 06:44] LABS: PARTIAL THROMBOPLASTIN TIME 38.9 SECONDS (25.9-37.0)
[2021-01-14 06:53] LABS: ALBUMIN 2.6 GM/DL (3.2-5.2); ALT/SGPT 52 U/L (12-78); BILIRUBIN,TOTAL 0.5 MG/DL (0.2-1.0); BLOOD UREA NITROGEN 34 MG/DL (7-18); CALCIUM LEVEL 8.8 MG/DL (8.8-10.2); CARBON DIOXIDE LEVEL 28 MEQ/L (21-32); CHLORIDE LEVEL 106 MEQ/L (98-107); CREATININE FOR GFR 0.68 MG/DL (0.55-1.30); FERRITIN 720 NG/ML (8-252); GLOMERULAR FILTRATION RATE > 60.0 (>39); GLUCOSE, FASTING 95 MG/DL (70-100); LDH LACTATE DEHYDROGENASE 79 U/L (84-246); NT-PRO BNP 116 PG/ML (<450); POTASSIUM SERUM 3.9 MEQ/L (3.5-5.1); SODIUM LEVEL 139 MEQ/L (136-145); TOTAL PROTEIN 6.8 GM/DL (6.4-8.2)
[2021-01-14 08:10] LABS: BODY FLUID CULTURE Not indicated. (.); LEGIONELLA ANTIGEN URINE Negative (Negative); ORGANISM ID Not indicated. (.); SPECIMEN SOURCE Urine (.); URINE STREP PNEUMONIAE ANTIGEN Negative (Negative)
[2021-01-14] MEDS: predniSONE 20 MG TAB PO SCH (08:47)
[2021-01-14] MEDS: DOCUSATE SODIUM 100MG CAPSULE PO SCH ×2 (08:47→20:43)
[2021-01-14] MEDS: ASCORBIC ACID 500 MG TAB PO SCH (08:47)
[2021-01-14] MEDS: VITAMIN D 1,000 INTERNATIONAL UNITS TABLET PO SCH (08:48)
[2021-01-14] MEDS: CALCIUM/VITAMIN D 500 MG TAB PO SCH (08:48)
[2021-01-14] MEDS: OMEPRAZOLE 20 MG CAP PO SCH (08:48)
[2021-01-14] MEDS: FUROSEMIDE 40 MG TAB PO SCH (08:48)
[2021-01-14] MEDS: GABAPENTIN 300 MG CAP PO SCH ×2 (08:48→20:43)
[2021-01-14] MEDS: ESCITALOPRAM OXALATE 10 MG TAB (LEXAPRO) PO SCH (08:49)
[2021-01-14] MEDS: ENOXAPARIN 40MG/0.4ML SYRINGE (J1650 PER 10MG) SC SCH ×2 (08:49→20:43)
[2021-01-14] MEDS: guaiFENesin ER 600 MG TAB PO SCH ×2 (08:49→20:43)
[2021-01-14] MEDS: ACETAMINOPHEN TAB 650MG DOSE (2X325MG) PO PRN (20:44)
[2021-01-15] MEDS: tiZANidine 4 MG TAB PO PRN ×2 (00:03→23:42)
[2021-01-15] MEDS: RAMELTEON 8 MG TAB (ROZEREM) PO SCH ×2 (00:03→23:42)
[2021-01-15] MEDS: ANALGESIC BALM CRM 3OZ TOP PRN ×2 (00:04→23:57)
[2021-01-15 04:00] VITALS: BP 124/73
[2021-01-15] MEDS: OMEPRAZOLE 20 MG CAP PO SCH (09:07)
[2021-01-15] MEDS: GABAPENTIN 300 MG CAP PO SCH ×2 (09:08→21:10)
[2021-01-15] MEDS: ASCORBIC ACID 500 MG TAB PO SCH (09:08)
[2021-01-15] MEDS: DOCUSATE SODIUM 100MG CAPSULE PO SCH ×2 (09:08→21:09)
[2021-01-15] MEDS: VITAMIN D 1,000 INTERNATIONAL UNITS TABLET PO SCH (09:08)
[2021-01-15] MEDS: CALCIUM/VITAMIN D 500 MG TAB PO SCH (09:08)
[2021-01-15] MEDS: ENOXAPARIN 40MG/0.4ML SYRINGE (J1650 PER 10MG) SC SCH ×2 (09:09→21:10)
[2021-01-15] MEDS: FUROSEMIDE 40 MG TAB PO SCH (09:09)
[2021-01-15] MEDS: guaiFENesin ER 600 MG TAB PO SCH ×2 (09:09→21:10)
[2021-01-15] MEDS: ESCITALOPRAM OXALATE 10 MG TAB (LEXAPRO) PO SCH (09:09)
[2021-01-15] MEDS: predniSONE 20 MG TAB PO SCH (09:09)
[2021-01-16 04:00] VITALS: BP 97/57
[2021-01-16] MEDS: DOCUSATE SODIUM 100MG CAPSULE PO SCH ×2 (08:07→20:16)
[2021-01-16] MEDS: CALCIUM/VITAMIN D 500 MG TAB PO SCH (08:37)
[2021-01-16] MEDS: ASCORBIC ACID 500 MG TAB PO SCH (08:37)
[2021-01-16] MEDS: predniSONE 20 MG TAB PO SCH (08:37)
[2021-01-16] MEDS: OMEPRAZOLE 20 MG CAP PO SCH (08:38)
[2021-01-16] MEDS: GABAPENTIN 300 MG CAP PO SCH ×2 (08:38→20:17)
[2021-01-16] MEDS: VITAMIN D 1,000 INTERNATIONAL UNITS TABLET PO SCH (08:38)
[2021-01-16] MEDS: FUROSEMIDE 40 MG TAB PO SCH (08:40)
[2021-01-16] MEDS: ESCITALOPRAM OXALATE 10 MG TAB (LEXAPRO) PO SCH (08:40)
[2021-01-16] MEDS: guaiFENesin ER 600 MG TAB PO SCH ×2 (08:40→20:16)
[2021-01-16] MEDS: ENOXAPARIN 40MG/0.4ML SYRINGE (J1650 PER 10MG) SC SCH ×2 (08:41→20:17)
[2021-01-16] MEDS: tiZANidine 4 MG TAB PO PRN (23:31)
[2021-01-16] MEDS: RAMELTEON 8 MG TAB (ROZEREM) PO SCH (23:31)
[2021-01-16] MEDS: ANALGESIC BALM CRM 3OZ TOP PRN (23:39)
[2021-01-17] MEDS: DOCUSATE SODIUM 100MG CAPSULE PO SCH ×2 (08:39→21:50)
[2021-01-17] MEDS: OMEPRAZOLE 20 MG CAP PO SCH (08:39)
[2021-01-17] MEDS: GABAPENTIN 300 MG CAP PO SCH ×2 (08:39→21:51)
[2021-01-17] MEDS: ASCORBIC ACID 500 MG TAB PO SCH (08:41)
[2021-01-17] MEDS: FUROSEMIDE 40 MG TAB PO SCH (08:41)
[2021-01-17] MEDS: predniSONE 20 MG TAB PO SCH (08:41)
[2021-01-17] MEDS: VITAMIN D 1,000 INTERNATIONAL UNITS TABLET PO SCH (08:42)
[2021-01-17] MEDS: ENOXAPARIN 40MG/0.4ML SYRINGE (J1650 PER 10MG) SC SCH ×2 (08:43→22:07)
[2021-01-17] MEDS: guaiFENesin ER 600 MG TAB PO SCH ×2 (08:43→21:52)
[2021-01-17] MEDS: ESCITALOPRAM OXALATE 10 MG TAB (LEXAPRO) PO SCH (08:43)
[2021-01-17] MEDS: CALCIUM/VITAMIN D 500 MG TAB PO SCH (08:58)
[2021-01-18] MEDS: RAMELTEON 8 MG TAB (ROZEREM) PO SCH (00:02)
[2021-01-18] MEDS: tiZANidine 4 MG TAB PO PRN (00:03)
[2021-01-18 06:00] VITALS: BP 100/63
[2021-01-18] MEDS: ASCORBIC ACID 500 MG TAB PO SCH (08:29)
[2021-01-18] MEDS: CALCIUM/VITAMIN D 500 MG TAB PO SCH (08:30)
[2021-01-18] MEDS: DOCUSATE SODIUM 100MG CAPSULE PO SCH ×2 (08:30→21:10)
[2021-01-18] MEDS: OMEPRAZOLE 20 MG CAP PO SCH (08:30)
[2021-01-18] MEDS: GABAPENTIN 300 MG CAP PO SCH ×2 (08:30→21:10)
[2021-01-18] MEDS: guaiFENesin ER 600 MG TAB PO SCH ×2 (08:32→21:10)
[2021-01-18] MEDS: VITAMIN D 1,000 INTERNATIONAL UNITS TABLET PO SCH (08:32)
[2021-01-18] MEDS: predniSONE 20 MG TAB PO SCH (08:32)
[2021-01-18] MEDS: FUROSEMIDE 40 MG TAB PO SCH (08:32)
[2021-01-18] MEDS: ESCITALOPRAM OXALATE 10 MG TAB (LEXAPRO) PO SCH (08:32)
[2021-01-18] MEDS: ENOXAPARIN 40MG/0.4ML SYRINGE (J1650 PER 10MG) SC SCH ×2 (08:33→21:10)
[2021-01-18] MEDS: ACETAMINOPHEN TAB 650MG DOSE (2X325MG) PO PRN (21:09)
[2021-01-18] MEDS: ANALGESIC BALM CRM 3OZ TOP PRN (21:11)
[2021-01-19] MEDS: tiZANidine 4 MG TAB PO PRN (00:03)
[2021-01-19] MEDS: RAMELTEON 8 MG TAB (ROZEREM) PO SCH (00:03)
[2021-01-19 06:00] VITALS: BP 117/64
[2021-01-19 08:00] VITALS: BP_SYST 117; BP_DIAS 68; BP_DIAS 80
[2021-01-19] MEDS: ASCORBIC ACID 500 MG TAB PO SCH (08:38)
[2021-01-19] MEDS: predniSONE 20 MG TAB PO SCH (08:39)
[2021-01-19] MEDS: OMEPRAZOLE 20 MG CAP PO SCH (08:40)
[2021-01-19] MEDS: ENOXAPARIN 40MG/0.4ML SYRINGE (J1650 PER 10MG) SC SCH ×2 (08:40→20:35)
[2021-01-19] MEDS: GABAPENTIN 300 MG CAP PO SCH ×2 (08:41→20:35)
[2021-01-19] MEDS: guaiFENesin ER 600 MG TAB PO SCH ×2 (08:41→20:35)
[2021-01-19] MEDS: DOCUSATE SODIUM 100MG CAPSULE PO SCH ×2 (08:41→20:34)
[2021-01-19] MEDS: CALCIUM/VITAMIN D 500 MG TAB PO SCH (08:41)
[2021-01-19] MEDS: VITAMIN D 1,000 INTERNATIONAL UNITS TABLET PO SCH (08:42)
[2021-01-19] MEDS: FUROSEMIDE 40 MG TAB PO SCH (08:42)
[2021-01-19] MEDS: ESCITALOPRAM OXALATE 10 MG TAB (LEXAPRO) PO SCH (09:53)
--- NOTE | 2021-01-19 18:17 | IPNPDOC ---
Text Note Date of Service The patient was seen on 01/19/21. NOTE Subjective: Patient is a 80-year-old female who initially presented to the hospital with increased weakness and inability to care for self. Patient states that her and her recently tested positive for COVID-19 as an outpatient. She received monoclonal antibodies on 01/02/2021. Patient did become mildly hypoxic throughout her hospitalization however, patient was doing better and was made ALC status on 01/12/2021. Patient will need to contest negative for Covid before going to a [place] [facility] facility. Patient denies any other complaints at this time. Review of systems: General: Patient denies fevers HEENT: Patient denies headaches Cardiovascular: Patient denies chest pain Respiratory: Patient denies shortness of breath, cough GI: Patient denies abdominal pain, nausea, vomiting, diarrhea : Patient denies increased frequency or pain with urination Extremities: Patient denies swelling or pain in extremities Neurological: Patient denies numbness or tingling in legs Physical exam: Vitals: See below General: Alert and oriented female patient who was laying in bed when I walked in. Patient not appear to be in any acute distress. HEENT: Normocephalic, atraumatic, moist mucous membranes. Neck: No lymphadenopathy or thyromegaly Cardiac: Regular rate and rhythm, no murmurs, normal S1, normal S2 Pulm: Clear to auscultation bilaterally. No wheezes, rhonchi, rales Abd: Nondistended, nontender to palpation, normal bowel sounds Ext: No edema bilateral lower extremities Labs: See below Imaging: No new imaging is been performed Assessment/plan: 80-year-old female presented to the emergency department with weakness and inability to care for self who was diagnosed with COVID-19 1. COVID-19 pneumonia. Patient is on room air has been on room air for the past week. Patient will need to be placed in a group home once patient is negative for Covid testing. Last test was on 01/15/2021 which was positive. Retest again on 2. Debility, acute on chronic likely secondary to progressive generative spastic paralysis, idiopathic diagnosed in 1984 with COVID-19 infection. Relies on her to do all activities of daily living. Currently hospitalized she unable to care for self. Continue attempting to place the patient in [place] [facility]. 3. Elevated troponin most likely secondary to demand ischemia, now within normal limits. 4. Chronic progressive degenerative spastic paralysis, idiopathic. Mostly bedbound use wheelchair with assistance as well. All activities of daily living performed by her at home. 5. GERD/Ruggiero's office. Continue PPI. 6. Coccyx decubiti, chronic. Continue wound care 7. Hyperlipidemia. Not on statin medication 8. Vitamin D deficiency not on vitamin D supplement. DVT Prophylaxis: Lovenox Disposition: Pending negative Covid test to place group home. I did fill out a MOLST form with the patient to reflect patient is DNR/DNI status. VS,Fishbone, I+O VS, Fishbone, I+O Vital Signs Date Time Temp Pulse Resp B/P (MAP) Pulse Ox O2 Delivery O2 Flow Rate FiO2 01/19/21 08:00 97.6 57 16 117/68 (84) 94 Room Air 01/13/21 04:00 2.0 I&O- Last 24 Hours up to 6 AM 01/19/21 06:00 Intake Total 800 ml Balance 800 ml GUILLERMINA SU DO Jan 19, 2021 18:17
[2021-01-19] MEDS: ACETAMINOPHEN TAB 650MG DOSE (2X325MG) PO PRN (20:36)
[2021-01-19] MEDS: ANALGESIC BALM CRM 3OZ TOP PRN (20:36)
[2021-01-20] MEDS: RAMELTEON 8 MG TAB (ROZEREM) PO SCH
[2021-01-20] MEDS: tiZANidine 4 MG TAB PO PRN
[2021-01-20 06:28] VITALS: BP 109/61
[2021-01-20] MEDS: ENOXAPARIN 40MG/0.4ML SYRINGE (J1650 PER 10MG) SC SCH ×2 (09:00→20:16)
[2021-01-20] MEDS ORDERED: predniSONE 20 MG TAB PO SCH (09:00)
[2021-01-20] MEDS: ESCITALOPRAM OXALATE 10 MG TAB (LEXAPRO) PO SCH (09:00)
[2021-01-20] MEDS: FUROSEMIDE 40 MG TAB PO SCH (09:00)
[2021-01-20] MEDS: guaiFENesin ER 600 MG TAB PO SCH ×2 (09:00→20:16)
[2021-01-20] MEDS: ASCORBIC ACID 500 MG TAB PO SCH (11:23)
[2021-01-20] MEDS: CALCIUM/VITAMIN D 500 MG TAB PO SCH (11:23)
[2021-01-20] MEDS: VITAMIN D 1,000 INTERNATIONAL UNITS TABLET PO SCH (11:24)
[2021-01-20] MEDS: GABAPENTIN 300 MG CAP PO SCH ×2 (11:24→20:16)
[2021-01-20] MEDS: DOCUSATE SODIUM 100MG CAPSULE PO SCH ×2 (11:24→20:16)
[2021-01-20] MEDS: OMEPRAZOLE 20 MG CAP PO SCH (11:25)
[2021-01-20] MEDS: predniSONE 20 MG TAB PO SCH (13:48)
[2021-01-20] MEDS: ANALGESIC BALM CRM 3OZ TOP PRN (20:17)
[2021-01-20] MEDS: ACETAMINOPHEN TAB 650MG DOSE (2X325MG) PO PRN (20:17)
[2021-01-21] MEDS: RAMELTEON 8 MG TAB (ROZEREM) PO SCH ×2 (00:07→23:33)
[2021-01-21] MEDS: tiZANidine 4 MG TAB PO PRN ×2 (00:07→23:33)
[2021-01-21 04:00] VITALS: BP 111/55
[2021-01-21] MEDS: VITAMIN D 1,000 INTERNATIONAL UNITS TABLET PO SCH (09:08)
[2021-01-21] MEDS: OMEPRAZOLE 20 MG CAP PO SCH (09:08)
[2021-01-21] MEDS: ENOXAPARIN 40MG/0.4ML SYRINGE (J1650 PER 10MG) SC SCH ×2 (09:08→20:25)
[2021-01-21] MEDS: ESCITALOPRAM OXALATE 10 MG TAB (LEXAPRO) PO SCH (09:09)
[2021-01-21] MEDS: GABAPENTIN 300 MG CAP PO SCH ×2 (09:09→20:25)
[2021-01-21] MEDS: ASCORBIC ACID 500 MG TAB PO SCH (09:09)
[2021-01-21] MEDS: DOCUSATE SODIUM 100MG CAPSULE PO SCH ×2 (09:10→20:25)
[2021-01-21] MEDS: CALCIUM/VITAMIN D 500 MG TAB PO SCH (09:10)
[2021-01-21] MEDS: guaiFENesin ER 600 MG TAB PO SCH ×2 (09:10→20:25)
[2021-01-21] MEDS: FUROSEMIDE 40 MG TAB PO SCH (09:10)
[2021-01-21] MEDS: predniSONE 20 MG TAB PO SCH (09:10)
[2021-01-21 14:00] VITALS: BP 120/70
[2021-01-21 17:10] VITALS: BP 110/66
[2021-01-21] MEDS: ANALGESIC BALM CRM 3OZ TOP PRN (23:35)
[2021-01-22] MEDS: ACETAMINOPHEN TAB 650MG DOSE (2X325MG) PO PRN ×2 (04:28→16:06)
[2021-01-22 06:00] VITALS: BP 108/63
[2021-01-22] MEDS: DOCUSATE SODIUM 100MG CAPSULE PO SCH ×2 (08:50→20:12)
[2021-01-22] MEDS: ASCORBIC ACID 500 MG TAB PO SCH (08:50)
[2021-01-22] MEDS: CALCIUM/VITAMIN D 500 MG TAB PO SCH (08:50)
[2021-01-22] MEDS: OMEPRAZOLE 20 MG CAP PO SCH (08:50)
[2021-01-22] MEDS: predniSONE 20 MG TAB PO SCH (08:51)
[2021-01-22] MEDS: guaiFENesin ER 600 MG TAB PO SCH ×2 (08:51→20:12)
[2021-01-22] MEDS: ESCITALOPRAM OXALATE 10 MG TAB (LEXAPRO) PO SCH (08:51)
[2021-01-22] MEDS: VITAMIN D 1,000 INTERNATIONAL UNITS TABLET PO SCH (08:51)
[2021-01-22] MEDS: GABAPENTIN 300 MG CAP PO SCH ×2 (08:51→20:12)
[2021-01-22] MEDS: FUROSEMIDE 40 MG TAB PO SCH (09:00)
[2021-01-22] MEDS: ENOXAPARIN 40MG/0.4ML SYRINGE (J1650 PER 10MG) SC SCH ×2 (09:00→20:12)
[2021-01-22 09:44] LABS: BASO % 0.2 % (0.0-1.0); EOS # 0.2 10^3/uL (0.0-0.5); EOS % 1.9 % (0.0-3.0); HEMOGLOBIN 13.7 g/dl (12.0-15.5); LYMPH # 2.3 10^3/uL (1.5-5.0); LYMPH % 23.9 % (24.0-44.0); MEAN CORPUSCULAR HGB CONC 31.9 g/dl (32.0-36.5); MEAN CORPUSCULAR VOLUME 94.3 fl (80.0-96.0); MONO # 0.8 10^3/uL (0.0-0.8); MONO % 8.1 % (2.0-8.0); NEUTROPHILS # 6.2 10^3/uL (1.5-8.5); NEUTROPHILS % 63.9 % (36.0-66.0); PLATELET COUNT, AUTOMATED 142 10^3/uL (150-450); RED BLOOD COUNT 4.56 10^6/uL (4.00-5.40); WHITE BLOOD COUNT 9.8 10^3/uL (4.0-10.0)
[2021-01-22 10:08] LABS: ALBUMIN 2.6 GM/DL (3.2-5.2); ALT/SGPT 64 U/L (12-78); BILIRUBIN,TOTAL 0.6 MG/DL (0.2-1.0); BLOOD UREA NITROGEN 32 MG/DL (7-18); CALCIUM LEVEL 8.9 MG/DL (8.8-10.2); CARBON DIOXIDE LEVEL 31 MEQ/L (21-32); CHLORIDE LEVEL 102 MEQ/L (98-107); CREATININE FOR GFR 0.85 MG/DL (0.55-1.30); GLOMERULAR FILTRATION RATE > 60.0 (>39); GLUCOSE, FASTING 82 MG/DL (70-100); POTASSIUM SERUM 3.7 MEQ/L (3.5-5.1); SODIUM LEVEL 140 MEQ/L (136-145); TOTAL PROTEIN 6.2 GM/DL (6.4-8.2)
[2021-01-22] MEDS: ANALGESIC BALM CRM 3OZ TOP PRN (11:54)
[2021-01-22] MEDS: RAMELTEON 8 MG TAB (ROZEREM) PO SCH (23:49)
[2021-01-22] MEDS: tiZANidine 4 MG TAB PO PRN (23:51)
[2021-01-23 06:00] VITALS: BP 110/64
[2021-01-23] MEDS: FUROSEMIDE 40 MG TAB PO SCH (09:00)
[2021-01-23] MEDS: GABAPENTIN 300 MG CAP PO SCH ×2 (09:36→20:22)
[2021-01-23] MEDS: OMEPRAZOLE 20 MG CAP PO SCH (09:36)
[2021-01-23] MEDS: CALCIUM/VITAMIN D 500 MG TAB PO SCH (09:36)
[2021-01-23] MEDS: DOCUSATE SODIUM 100MG CAPSULE PO SCH ×2 (09:36→20:21)
[2021-01-23] MEDS: guaiFENesin ER 600 MG TAB PO SCH ×2 (09:36→20:21)
[2021-01-23] MEDS: ESCITALOPRAM OXALATE 10 MG TAB (LEXAPRO) PO SCH (09:37)
[2021-01-23] MEDS: ASCORBIC ACID 500 MG TAB PO SCH (09:37)
[2021-01-23] MEDS: VITAMIN D 1,000 INTERNATIONAL UNITS TABLET PO SCH (09:37)
[2021-01-23] MEDS: predniSONE 20 MG TAB PO SCH (09:37)
[2021-01-23] MEDS: ENOXAPARIN 40MG/0.4ML SYRINGE (J1650 PER 10MG) SC SCH ×2 (09:45→20:21)
[2021-01-23] MEDS ORDERED: FLUCONAZOLE 50MG TABLET PO ONE (10:00)
[2021-01-23] MEDS: RAMELTEON 8 MG TAB (ROZEREM) PO SCH (23:57)
[2021-01-23] MEDS: tiZANidine 4 MG TAB PO PRN (23:57)
[2021-01-24 06:00] VITALS: BP 105/61
[2021-01-24] MEDS: predniSONE 20 MG TAB PO SCH (08:31)
[2021-01-24] MEDS: CALCIUM/VITAMIN D 500 MG TAB PO SCH (08:31)
[2021-01-24] MEDS: guaiFENesin ER 600 MG TAB PO SCH ×2 (08:31→20:52)
[2021-01-24] MEDS: OMEPRAZOLE 20 MG CAP PO SCH (08:31)
[2021-01-24] MEDS: DOCUSATE SODIUM 100MG CAPSULE PO SCH ×3 (08:31→20:52)
[2021-01-24] MEDS: VITAMIN D 1,000 INTERNATIONAL UNITS TABLET PO SCH (08:32)
[2021-01-24] MEDS: ASCORBIC ACID 500 MG TAB PO SCH (08:33)
[2021-01-24] MEDS: ESCITALOPRAM OXALATE 10 MG TAB (LEXAPRO) PO SCH (08:33)
[2021-01-24] MEDS: GABAPENTIN 300 MG CAP PO SCH ×2 (08:33→20:52)
[2021-01-24] MEDS: FUROSEMIDE 40 MG TAB PO SCH (08:33)
[2021-01-24] MEDS: ENOXAPARIN 40MG/0.4ML SYRINGE (J1650 PER 10MG) SC SCH ×2 (08:34→20:52)
[2021-01-24] MEDS: tiZANidine 4 MG TAB PO PRN (23:31)
[2021-01-24] MEDS: RAMELTEON 8 MG TAB (ROZEREM) PO SCH (23:31)
[2021-01-24] MEDS: ANALGESIC BALM CRM 3OZ TOP PRN (23:31)
[2021-01-25] MEDS: ACETAMINOPHEN TAB 650MG DOSE (2X325MG) PO PRN (05:23)
[2021-01-25] MEDS: ANALGESIC BALM CRM 3OZ TOP PRN (05:23)
[2021-01-25 06:00] VITALS: BP 99/56
[2021-01-25] MEDS: FUROSEMIDE 40 MG TAB PO SCH (09:00)
[2021-01-25] MEDS: CALCIUM/VITAMIN D 500 MG TAB PO SCH (09:10)
[2021-01-25] MEDS: OMEPRAZOLE 20 MG CAP PO SCH (09:11)
[2021-01-25] MEDS: ASCORBIC ACID 500 MG TAB PO SCH (09:11)
[2021-01-25] MEDS: predniSONE 20 MG TAB PO SCH (09:11)
[2021-01-25] MEDS: GABAPENTIN 300 MG CAP PO SCH ×2 (09:11→20:31)
[2021-01-25] MEDS: DOCUSATE SODIUM 100MG CAPSULE PO SCH ×3 (09:12→20:31)
[2021-01-25] MEDS: guaiFENesin ER 600 MG TAB PO SCH ×2 (09:12→20:32)
[2021-01-25] MEDS: VITAMIN D 1,000 INTERNATIONAL UNITS TABLET PO SCH (09:12)
[2021-01-25] MEDS: ESCITALOPRAM OXALATE 10 MG TAB (LEXAPRO) PO SCH (09:12)
[2021-01-25] MEDS: ENOXAPARIN 40MG/0.4ML SYRINGE (J1650 PER 10MG) SC SCH ×2 (09:13→20:32)
[2021-01-26] MEDS: RAMELTEON 8 MG TAB (ROZEREM) PO SCH ×2 (00:26→23:35)
[2021-01-26] MEDS: tiZANidine 4 MG TAB PO PRN ×2 (00:26→23:35)
[2021-01-26 06:00] VITALS: BP 98/56
[2021-01-26 08:30] VITALS: BP 104/56
[2021-01-26] MEDS: ESCITALOPRAM OXALATE 10 MG TAB (LEXAPRO) PO SCH (08:34)
[2021-01-26] MEDS: VITAMIN D 1,000 INTERNATIONAL UNITS TABLET PO SCH (08:34)
[2021-01-26] MEDS: ENOXAPARIN 40MG/0.4ML SYRINGE (J1650 PER 10MG) SC SCH ×2 (08:34→20:20)
[2021-01-26] MEDS: OMEPRAZOLE 20 MG CAP PO SCH (08:35)
[2021-01-26] MEDS: guaiFENesin ER 600 MG TAB PO SCH ×2 (08:35→20:19)
[2021-01-26] MEDS: CALCIUM/VITAMIN D 500 MG TAB PO SCH (08:35)
[2021-01-26] MEDS: DOCUSATE SODIUM 100MG CAPSULE PO SCH ×3 (08:35→20:19)
[2021-01-26] MEDS: GABAPENTIN 300 MG CAP PO SCH ×2 (08:35→20:19)
[2021-01-26] MEDS: ASCORBIC ACID 500 MG TAB PO SCH (08:35)
[2021-01-26] MEDS: FUROSEMIDE 40 MG TAB PO SCH (08:40)
--- NOTE | 2021-01-26 22:36 | IPNPDOC ---
Subjective Date Seen The patient was seen on 01/26/21. Subjective Chief Complaint/HPI Mrs. Alejandre is a 80-year-old female with Ruggiero's esophagus, recent Covid positive status in 12/31/2020, and chronic progressive degenerative spastic paralysis who is here with increased weakness and inability to care for self at home. Patient was made ALC and placement was looked for. Today, patient was feeling well. Denied any chest pain or dyspnea. She had a Covid test today which was negative. Anticipating going to [facility] tomorrow. Objective Physical Examination General Exam: Positive: Alert, Cooperative Eye Exam: Positive: EOMI; Negative: Sclera icteric ENT Exam: Positive: Atraumatic Neck Exam: Positive: Supple Chest Exam: Positive: Clear to auscultation Heart Exam: Positive: Rate Normal, Regular Rhythm Abdomen Exam: Positive: Normal bowel sounds, Soft; Negative: Tenderness Neuro Exam: Positive: Normal Speech Psych Exam: Positive: Mental status NL, Mood NL Assessment /Plan Plan/VTE VTE Prophylaxis Ordered?: Yes Plan 1. COVID-19 pneumonia Patient was Covid positive on 12/31/2020 Today patient is doing well at room air Her Covid test is negative 2. Debility secondary to progressive degenerative spastic paralysis Patient had to rely on her for all of her ADLs Patient is unable to care for self Patient will go to [facility] facility [facility] [place] 3. Elevated troponin Most likely due to demand ischemia Now within normal limits 4. Ruggiero's esophagus Continue PPI 5. Coccyx decubiti, chronic Continue wound care 6. DVT prophylaxis Lovenox Disposition: Patient has placement tomorrow at noon for [facility]. VS, I&O, 24H, Ekaterina Vital Signs/I&O Vital Signs Date Time Temp Pulse Resp B/P (MAP) Pulse Ox O2 Delivery O2 Flow Rate FiO2 01/26/21 08:30 104/56 (72) 01/26/21 06:00 98.1 62 17 90 Room Air I&O- Last 24 Hours up to 6 AM 01/26/21 06:00 Intake Total 120 ml Output Total 0 ml Balance 120 ml Laboratory Data 24H LABS Laboratory Tests 2 01/26/21 16:49: Coronavirus (COVID-19)(PCR) NEGATIVE JOHNNY ROBERTS DO Jan 26, 2021 22:36
[2021-01-27 06:00] VITALS: BP 108/56
[2021-01-27] MEDS: VITAMIN D 1,000 INTERNATIONAL UNITS TABLET PO SCH (08:28)
[2021-01-27] MEDS: FUROSEMIDE 40 MG TAB PO SCH (08:28)
[2021-01-27] MEDS: guaiFENesin ER 600 MG TAB PO SCH (08:28)
[2021-01-27] MEDS: DOCUSATE SODIUM 100MG CAPSULE PO SCH (08:28)
[2021-01-27] MEDS: CALCIUM/VITAMIN D 500 MG TAB PO SCH (08:28)
[2021-01-27] MEDS: ASCORBIC ACID 500 MG TAB PO SCH (08:28)
[2021-01-27] MEDS: OMEPRAZOLE 20 MG CAP PO SCH (08:28)
[2021-01-27] MEDS: ESCITALOPRAM OXALATE 10 MG TAB (LEXAPRO) PO SCH (08:28)
[2021-01-27] MEDS: GABAPENTIN 300 MG CAP PO SCH (08:28)
[2021-01-27] MEDS: ACETAMINOPHEN TAB 650MG DOSE (2X325MG) PO PRN (08:29)
[2021-01-27] MEDS: ENOXAPARIN 40MG/0.4ML SYRINGE (J1650 PER 10MG) SC SCH (08:29)
[2021-01-27] MEDS ORDERED: MUCI600T31 PO (11:29)
[2021-01-27] MEDS ORDERED: RAME8TAB2 PO (11:29)
[2021-01-27] MEDS ORDERED: OMEP-218 PO (11:29)
[2021-01-27] MEDS ORDERED: MOM30SS2 PO (11:29)
[2021-01-27] MEDS ORDERED: MUSCCRE9 TOP (11:29)
--- NOTE | 2021-01-27 12:04 | DS.PDOC ---
Discharge Summary General Date of Admission Jan 08, 2021 at 16:44 Date of Discharge 01/27/21 Discharged to [facility]. Discharge Summary Discharge diagnoses: Covid-19 pneumonia 12/31/20 Debility due to progressive degenerative spastic paralysis Demand Mediated Type 2 NSTEMI Barretts Esophagus Chronic coccygeal decubiti Discharge Medications: see below Discharge instructions: Pcp yarelis 1wk. Hospital course: Patient is a 80-year-old female past medical history of GERD, Ruggiero's esophagus, Covid positive diagnosis, history of coccyx and ankle decubiti, hypertension, chronic progressive degenerative spastic paralysis, idiopathic (diagnosed 1984), hyperlipidemia, chronic pain/peripheral neuropathy, Vitamin D deficiency who presented to [facility] emergency room with a chief complaint of increased weakness, inability to care for self at home. The patient states her and her were recently tested positive for COVID-19 (12/31/2020) as outpatient. She received a monoclonal antibody infusion 01/02/2021. The patient has had increased sinus congestion, nonproductive cough, increased weakness, increased shortness of breath with exertion, increased anterior chest pressure with increased shortness of breath, cold chills and hot flashes since diagnosis. She states her was admitted to the hospital on 01/07/2021 leaving her without a caregiver at the house. Since he has been admitted the patient is unable to do anything for herself as she is bedbound and requires assistance for all activities of daily living. The patient does not walk and uses a wheelchair with assistance by her at baseline. Today she called 911 and was brought to [facility] emergency room to help assist with her situation. In the emergency room vital signs are stable, patient was saturating at 92% on room air upon initial presentation. Sometime into her stay in the ER the patient's oxygen saturation dropped down to 87% she was placed on 2 L nasal cannula and oxygen saturations increased to 93%. Chest x-ray showed bilateral pneumonia. CBC and CMP unremarkable, trop POC 0.22. High-sensitivity troponin was 457. ECG showed normal sinus rhythm without ST or T wave change. 1. COVID-19 pneumonia Patient was Covid positive on 12/31/2020 -initially treated with iv ceftriaxone and iv doxycycline, both of which were stopped when procalcitonin was low. -completed iv decadron, remdesevir,antiplt and anticoagulant. -initially needed 3liters nasal cannula , but titrated off now. Today patient is doing well at room air Her Covid test is negative 2. Debility secondary to progressive degenerative spastic paralysis Patient had to rely on her for all of her ADLs Patient is unable to care for self Patient will go to intermediate facility at [place] 3. Elevated troponin Most likely due to demand ischemia Now within normal limits 4. Ruggiero's esophagus Continue PPI 5. Coccyx decubiti, chronic Continue wound care 6. DVT prophylaxis Lovenox Discharge Physical Examination Vitals: see below General Exam: Positive: Alert, Cooperative Eye Exam: Positive: EOMI; Negative: Sclera icteric ENT Exam: Positive: Atraumatic Neck Exam: Positive: Supple Chest Exam: Positive: Clear to auscultation Heart Exam: Positive: Rate Normal, Regular Rhythm Abdomen Exam: Positive: Normal bowel sounds, Soft; Negative: Tenderness Neuro Exam: Positive: Normal Speech Psych Exam: Positive: Mental status NL, Mood NL Discharge labs/imaging/microbiology: pls see chart Time spent on discharge: 30 minutes Vital Signs/I&Os Vital Signs Date Time Temp Pulse Resp B/P (MAP) Pulse Ox O2 Delivery O2 Flow Rate FiO2 01/27/21 06:00 97.4 62 17 108/56 (73) 92 Room Air I&O- Last 24 Hours up to 6 AM 01/27/21 06:00 Intake Total 760 ml Output Total 150 ml Balance 610 ml Laboratory Data Labs 24H Laboratory Tests 2 01/26/21 16:49: Coronavirus (COVID-19)(PCR) NEGATIVE Discharge Medications Scheduled Ascorbic Acid (Vitamin C) 500 Mg Tablet, 1,000 MG PO DAILY, (Reported) Calcium Carbonate/Vitamin D3 (Calcium 600-Vit D3 400 Tablet) 1 Each Tablet, 1 TAB PO DAILY, (Reported) Cholecalciferol (Vitamin D3) (Vitamin D3) 1,000 Unit Tablet, 2,000 UNITS PO DAILY, (Reported) Ciclopirox Olamine (Ciclopirox) 15 Gm Cream..g., 1 APLCT TOP BID, (Reported) APPLY TO AFFECTED AREA Escitalopram Oxalate (Lexapro) 10 Mg Tablet, 10 MG PO DAILY, (Reported) Furosemide (Furosemide) 20 Mg Tablet, 40 MG PO DAILY, (Reported) Gabapentin (Gabapentin) 300 Mg Capsule, 300 MG PO BID, (Reported) Garlic (Garlic) 200 Mg Tablet, 200 MG PO DAILY, (Reported) Guaifenesin (Mucinex) 600 Mg Tab.er.12h, 1,200 MG PO BID [place] Extract ([place] Extract) 250 Mg Capsule, 250 MG PO DAILY, (Reported) Hume-3/Dha/Epa/Fish Oil (Hume-3 Fish Oil 1,200 mg Sfgl) 1,200 Mg Capsule, 1,200 MG PO DAILY, (Reported) Omeprazole (Omeprazole) 20 Mg Capsule.dr, 20 MG PO DAILY Ramelteon (Ramelteon) 8 Mg Tablet, 8 MG PO QHS Ubidecarenone (Co Q-10) 200 Mg Capsule, 200 MG PO DAILY, (Reported) Scheduled PRN Magnesium Hydroxide (Milk of Magnesia) 400 Mg/5 Ml Oral.susp, 30 ML PO BIDP PRN for CONSTIPATION Methyl Salicylate/Menthol (Muscle Rub Cream) 85 Gm Cream..g., 0 DOSE TOP QIDP PRN for leg pain Tizanidine HCl (Tizanidine HCl) 2 Mg Tablet, 2 MG PO Q8H PRN for MUSCLE SPASMS, (Reported) Allergies Coded Allergies: No Known Allergies (Unverified , 01/08/21) MOISES SAUCEDO MD Jan 27, 2021 12:01
== END 2021-01-27 13:07 | DRG 177 ==
LOC: EDBD 11:42 → M ED 11:42 → M ED INP 16:44 → ENRESERV 01-09 15:25 → M 4MAIN 01-09 18:50 → M MSPAV 01-21 17:19
PROVIDERS: ADMIT Internal Medicine; ATTEND General Practice
PROC: XW033E5 Introduction of Remdesivir Anti-infective into Peripheral Vein, Percutaneous Approach, New Technology Group 5 (ICD-10-PCS; principal; 2021-01-08)
PROC: 3E0333Z Introduction of Anti-inflammatory into Peripheral Vein, Percutaneous Approach (ICD-10-PCS; 2021-01-08)
DX: U07.1 COVID-19 (principal); J12.82 Pneumonia due to coronavirus disease 2019; I21.A1 Myocardial infarction type 2; K21.9 Gastro-esophageal reflux disease without esophagitis; K22.70 Barrett's esophagus without dysplasia; I10 Essential (primary) hypertension; G83.89 Other specified paralytic syndromes; E78.5 Hyperlipidemia, unspecified; G62.9 Polyneuropathy, unspecified; L89.152 Pressure ulcer of sacral region, stage 2; G89.29 Other chronic pain; E55.9 Vitamin D deficiency, unspecified; Z99.3 Dependence on wheelchair; Z74.01 Bed confinement status; Z87.891 Personal history of nicotine dependence; Z66 Do not resuscitate; R53.81 Other malaise; Z79.899 Other long term (current) drug therapy

== ENCOUNTER → 2022-05-12 | Outpatient (REF) ==
[~2022-05-12] MED LIST changes: -ALBUTEROL 90 MCG/ACT 8GM HFA INHALER INH PRN; -ALBUTEROL SULFATE 2.5 MG/0.5 ML INH NEB SOLN INH PRN; +CALC1TAB74 PO; +CICL0.7739 TOP; +CO Q200C10 PO; -EPINEPHrine INJ 1 MG/ML 1ML AMP IM PRN; +FURO20TA2 PO; +GABA-282 PO; +GARL200T2 PO; +IBUP200T46 PO; +LEXA1TAB PO; +MOM30SS2 PO; +MUCI600T31 PO; +MUSCCRE9 TOP; -NS 1,000 ML IV SCH; +OLIV250C PO; +OMEG12004 PO; +OMEP-173 PO; +RAME8TAB2 PO; +TIZA2TA PO; +VITA-243 PO; +VITA100093 PO; -diphenhydrAMINE 50MG/ML VIAL (J1200) IV PRN; -methylPREDNISolone 125MG 2ML VIAL IV PRN
[2022-05-12 11:15] LABS: HEMATOCRIT 42.8 % (36.0-47.0); HEMOGLOBIN 13.4 g/dl (12.0-15.5); MEAN CORPUSCULAR HEMOGLOBIN 30.2 pg (27.0-33.0); MEAN CORPUSCULAR VOLUME 96.6 fl (80.0-96.0); RED BLOOD COUNT 4.43 10^6/uL (4.00-5.40); WHITE BLOOD COUNT 6.3 10^3/uL (4.0-10.0)
[2022-05-12 11:16] LABS: MEAN CORPUSCULAR HGB CONC 31.3 g/dl (32.0-36.5); PLATELET COUNT, AUTOMATED 172 10^3/uL (150-450)
[2022-05-12 11:42] LABS: BLOOD UREA NITROGEN 29 MG/DL (9-23); CALCIUM LEVEL 8.5 MG/DL (8.3-10.6); CARBON DIOXIDE LEVEL 27 MMOL/L (20-31); CHLORIDE LEVEL 107 MMOL/L (98-107); CREATININE FOR GFR 0.61 MG/DL (0.55-1.30); GLOMERULAR FILTRATION RATE > 60.0 (>32); GLUCOSE, FASTING 124 MG/DL (74-106); POTASSIUM SERUM 3.8 MMOL/L (3.5-5.1); SODIUM LEVEL 142 MMOL/L (136-145)
[2022-05-12 11:44] LABS: BILIRUBIN,DIRECT 0.1 MG/DL (<0.4); BILIRUBIN,TOTAL 0.4 MG/DL (0.3-1.2); TOTAL PROTEIN 6.3 G/DL (5.7-8.2)
[2022-05-12 11:48] LABS: THYROID STIMULATING HORMONE 4.571 uIU/ML (0.55-4.78)
[2022-05-12 11:50] LABS: TOTAL 25(OH) VITAMIN D 29.7 NG/ML (20.0-100.0)
== END ==
PROVIDERS: ATTEND Physician Assistant
DX: I50.9 Heart failure, unspecified (principal)

== ENCOUNTER → 2022-06-09 | Outpatient (REF) | payer MEDICARE, MEDICAID ==
[2022-06-09 18:07] LABS: HEMATOCRIT 43.6 % (36.0-47.0); HEMOGLOBIN 13.6 g/dl (12.0-15.5); MEAN CORPUSCULAR HEMOGLOBIN 30.4 pg (27.0-33.0); MEAN CORPUSCULAR HGB CONC 31.2 g/dl (32.0-36.5); MEAN CORPUSCULAR VOLUME 97.3 fl (80.0-96.0); PLATELET COUNT, AUTOMATED 195 10^3/uL (150-450); RED BLOOD COUNT 4.48 10^6/uL (4.00-5.40); WHITE BLOOD COUNT 7.4 10^3/uL (4.0-10.0)
[2022-06-09 18:35] LABS: BLOOD UREA NITROGEN 24 MG/DL (9-23); CARBON DIOXIDE LEVEL 28 MMOL/L (20-31); CHLORIDE LEVEL 104 MMOL/L (98-107); CREATININE FOR GFR 0.64 MG/DL (0.55-1.30); GLOMERULAR FILTRATION RATE > 60.0 (>32); GLUCOSE, FASTING 93 MG/DL (74-106); POTASSIUM SERUM 4.6 MMOL/L (3.5-5.1); SODIUM LEVEL 140 MMOL/L (136-145)
== END ==
PROVIDERS: ATTEND Physician Assistant
DX: R11.0 Nausea (principal)

== ENCOUNTER → 2022-09-27 | Outpatient (REF) | payer MEDICARE, MEDICAID ==
[2022-09-27 08:21] LABS: HEMATOCRIT 41.7 % (36.0-47.0); HEMOGLOBIN 13.4 g/dl (12.0-15.5); MEAN CORPUSCULAR HEMOGLOBIN 30.1 pg (27.0-33.0); MEAN CORPUSCULAR HGB CONC 32.1 g/dl (32.0-36.5); MEAN CORPUSCULAR VOLUME 93.7 fl (80.0-96.0); PLATELET COUNT, AUTOMATED 181 10^3/uL (150-450); RED BLOOD COUNT 4.45 10^6/uL (4.00-5.40); WHITE BLOOD COUNT 7.7 10^3/uL (4.0-10.0)
[2022-09-27 08:46] LABS: BLOOD UREA NITROGEN 19 MG/DL (9-23); CALCIUM LEVEL 8.9 MG/DL (8.3-10.6); CARBON DIOXIDE LEVEL 27 MMOL/L (20-31); CHLORIDE LEVEL 106 MMOL/L (98-107); CREATININE FOR GFR 0.71 MG/DL (0.55-1.30); GLOMERULAR FILTRATION RATE > 60.0 (>32); GLUCOSE, FASTING 87 MG/DL (74-106); POTASSIUM SERUM 4.2 MMOL/L (3.5-5.1); SODIUM LEVEL 142 MMOL/L (136-145)
== END ==
PROVIDERS: ATTEND Internal Medicine
DX: I50.9 Heart failure, unspecified (principal)

== ENCOUNTER → 2022-11-22 | Outpatient (REF) | payer MEDICARE, MEDICAID ==
[2022-11-22 11:55] LABS: BILIRUBIN,DIRECT 0.1 MG/DL (<0.4); BILIRUBIN,TOTAL 0.5 MG/DL (0.3-1.2); THYROID STIMULATING HORMONE 2.513 uIU/ML (0.55-4.78); TOTAL PROTEIN 6.2 G/DL (5.7-8.2)
[2022-11-22 12:21] LABS: TOTAL 25(OH) VITAMIN D 30.8 NG/ML (20.0-100.0)
== END ==
PROVIDERS: ATTEND Internal Medicine
DX: I50.9 Heart failure, unspecified (principal); Z79.899 Other long term (current) drug therapy

== ENCOUNTER → 2022-12-10 | Outpatient (CLI) | payer MEDICARE, MEDICAID ==
[2022-12-10 19:57] LABS: BASO # 0.1 10^3/uL (0.0-0.2); BASO % 0.9 % (0.0-1.0); EOS # 0.3 10^3/uL (0.0-0.5); EOS % 4.3 % (0.0-3.0); HEMATOCRIT 44.3 % (36.0-47.0); HEMOGLOBIN 14.1 g/dl (12.0-15.5); LYMPH # 2.6 10^3/uL (1.5-5.0); MEAN CORPUSCULAR HEMOGLOBIN 30.5 pg (27.0-33.0); MEAN CORPUSCULAR HGB CONC 31.8 g/dl (32.0-36.5); MEAN CORPUSCULAR VOLUME 95.7 fl (80.0-96.0); MONO # 0.5 10^3/uL (0.0-0.8); MONO % 7.5 % (2.0-8.0); NEUTROPHILS % 46.8 % (36.0-66.0); PLATELET COUNT, AUTOMATED 166 10^3/uL (150-450); RED BLOOD COUNT 4.63 10^6/uL (4.00-5.40); WHITE BLOOD COUNT 6.5 10^3/uL (4.0-10.0)
[2022-12-10 20:19] LABS: BLOOD UREA NITROGEN 19 MG/DL (9-23); CALCIUM LEVEL 9.2 MG/DL (8.3-10.6); CARBON DIOXIDE LEVEL 28 MMOL/L (20-31); CHLORIDE LEVEL 107 MMOL/L (98-107); CREATININE FOR GFR 0.73 MG/DL (0.55-1.30); GLOMERULAR FILTRATION RATE > 60.0 (>32); GLUCOSE, FASTING 119 MG/DL (74-106); SODIUM LEVEL 144 MMOL/L (136-145)
== END ==
LOC: M LAB 17:40
PROVIDERS: ATTEND Internal Medicine
DX: R19.7 Diarrhea, unspecified (principal); R42 Dizziness and giddiness

== ENCOUNTER → 2023-01-26 | Outpatient (REF) | payer MEDICARE, MEDICAID ==
[2023-01-26 10:55] LABS: HEMATOCRIT 41.2 % (36.0-47.0); HEMOGLOBIN 13.2 g/dl (12.0-15.5); MEAN CORPUSCULAR HEMOGLOBIN 30.5 pg (27.0-33.0); MEAN CORPUSCULAR VOLUME 95.2 fl (80.0-96.0); PLATELET COUNT, AUTOMATED 158 10^3/uL (150-450); RED BLOOD COUNT 4.33 10^6/uL (4.00-5.40); WHITE BLOOD COUNT 6.6 10^3/uL (4.0-10.0)
[2023-01-26 11:14] LABS: BLOOD UREA NITROGEN 21 MG/DL (9-23); CALCIUM LEVEL 8.7 MG/DL (8.3-10.6); CARBON DIOXIDE LEVEL 26 MMOL/L (20-31); CHLORIDE LEVEL 109 MMOL/L (98-107); CREATININE FOR GFR 0.66 MG/DL (0.55-1.30); GLOMERULAR FILTRATION RATE > 60.0 (>32); GLUCOSE, FASTING 93 MG/DL (74-106); POTASSIUM SERUM 4.1 MMOL/L (3.5-5.1); SODIUM LEVEL 141 MMOL/L (136-145)
== END ==
PROVIDERS: ATTEND Internal Medicine
DX: I50.9 Heart failure, unspecified (principal)

== ENCOUNTER → 2023-02-10 | Outpatient (REF) | payer MEDICARE, MEDICAID | PROVIDERS: ATTEND Internal Medicine | DX: R05.9 Cough, unspecified (principal) ==

== ENCOUNTER → 2023-02-28 | Outpatient (REF) | payer MEDICARE, MEDICAID ==
[2023-02-28 11:58] LABS: HEMATOCRIT 42.3 % (36.0-47.0); HEMOGLOBIN 13.4 g/dl (12.0-15.5); MEAN CORPUSCULAR HEMOGLOBIN 30.1 pg (27.0-33.0); MEAN CORPUSCULAR HGB CONC 31.7 g/dl (32.0-36.5); MEAN CORPUSCULAR VOLUME 95.1 fl (80.0-96.0); PLATELET COUNT, AUTOMATED 186 10^3/uL (150-450); RED BLOOD COUNT 4.45 10^6/uL (4.00-5.40); WHITE BLOOD COUNT 7.4 10^3/uL (4.0-10.0)
[2023-02-28 12:32] LABS: BLOOD UREA NITROGEN 14 MG/DL (9-23); CALCIUM LEVEL 9.4 MG/DL (8.3-10.6); CARBON DIOXIDE LEVEL 28 MMOL/L (20-31); CHLORIDE LEVEL 109 MMOL/L (98-107); CREATININE FOR GFR 0.65 MG/DL (0.55-1.30); GLOMERULAR FILTRATION RATE > 60.0 (>32); GLUCOSE, FASTING 86 MG/DL (74-106); POTASSIUM SERUM 3.8 MMOL/L (3.5-5.1); SODIUM LEVEL 143 MMOL/L (136-145)
== END ==
PROVIDERS: ATTEND Internal Medicine
DX: R41.89 Other symptoms and signs involving cognitive functions and awareness (principal)

== ENCOUNTER → 2023-05-25 | Outpatient (REF) | payer MEDICARE, MEDICAID ==
[2023-05-25 12:31] LABS: HEMOGLOBIN 12.7 g/dl (12.0-15.5); MEAN CORPUSCULAR VOLUME 96.7 fl (80.0-96.0); PLATELET COUNT, AUTOMATED 159 10^3/uL (150-450); RED BLOOD COUNT 4.24 10^6/uL (4.00-5.40); WHITE BLOOD COUNT 5.6 10^3/uL (4.0-10.0)
[2023-05-25 13:10] LABS: ALBUMIN 2.8 G/DL (3.2-5.2); ALKALINE PHOSPHATASE 83 U/L (46-116); ALT/SGPT 15 U/L (7.0-40); AST/SGOT 9 U/L (<34); BILIRUBIN,DIRECT 0.1 MG/DL (<0.4); BILIRUBIN,TOTAL 0.4 MG/DL (0.3-1.2); BLOOD UREA NITROGEN 21 MG/DL (9-23); CALCIUM LEVEL 8.9 MG/DL (8.3-10.6); CARBON DIOXIDE LEVEL 28 MMOL/L (20-31); CHLORIDE LEVEL 108 MMOL/L (98-107); GLOMERULAR FILTRATION RATE > 60.0 (>32); GLUCOSE, FASTING 108 MG/DL (74-106); POTASSIUM SERUM 3.7 MMOL/L (3.5-5.1); SODIUM LEVEL 145 MMOL/L (136-145); THYROID STIMULATING HORMONE 3.286 uIU/ML (0.55-4.78); TOTAL PROTEIN 6.2 G/DL (5.7-8.2)
[2023-05-25 13:11] LABS: VITAMIN B12 LEVEL 716 PG/ML (211-911)
== END ==
PROVIDERS: ATTEND Internal Medicine
DX: I50.9 Heart failure, unspecified (principal); Z79.899 Other long term (current) drug therapy

== ENCOUNTER → 2023-07-08 | Outpatient (REF) | payer MEDICARE, MEDICAID ==
[2023-07-08 10:17] LABS: HEMATOCRIT 41.6 % (36.0-47.0); MEAN CORPUSCULAR HEMOGLOBIN 29.9 pg (27.0-33.0); MEAN CORPUSCULAR HGB CONC 31.3 g/dl (32.0-36.5); MEAN CORPUSCULAR VOLUME 95.6 fl (80.0-96.0); PLATELET COUNT, AUTOMATED 161 10^3/uL (150-450); RED BLOOD COUNT 4.35 10^6/uL (4.00-5.40); WHITE BLOOD COUNT 6.2 10^3/uL (4.0-10.0)
[2023-07-08 10:51] LABS: ALKALINE PHOSPHATASE 94 U/L (46-116); ALT/SGPT 16 U/L (7.0-40); AST/SGOT 9 U/L (<34); BILIRUBIN,TOTAL 0.6 MG/DL (0.3-1.2); BLOOD UREA NITROGEN 28 MG/DL (9-23); CALCIUM LEVEL 9.3 MG/DL (8.3-10.6); CARBON DIOXIDE LEVEL 27 MMOL/L (20-31); CHLORIDE LEVEL 109 MMOL/L (98-107); CREATININE FOR GFR 0.73 MG/DL (0.55-1.30); GLOMERULAR FILTRATION RATE > 60.0 (>32); GLUCOSE, FASTING 113 MG/DL (74-106); POTASSIUM SERUM 4.2 MMOL/L (3.5-5.1); SODIUM LEVEL 143 MMOL/L (136-145); TOTAL PROTEIN 6.4 G/DL (5.7-8.2)
== END ==
PROVIDERS: ATTEND Internal Medicine
DX: I50.9 Heart failure, unspecified (principal)

== ENCOUNTER → 2023-07-11 | Outpatient (REF) | payer MEDICARE, MEDICAID ==
[2023-07-11 11:30] LABS: HEMATOCRIT 41.4 % (36.0-47.0); HEMOGLOBIN 12.9 g/dl (12.0-15.5); MEAN CORPUSCULAR HEMOGLOBIN 29.9 pg (27.0-33.0); MEAN CORPUSCULAR HGB CONC 31.2 g/dl (32.0-36.5); MEAN CORPUSCULAR VOLUME 95.8 fl (80.0-96.0); PLATELET COUNT, AUTOMATED 170 10^3/uL (150-450); RED BLOOD COUNT 4.32 10^6/uL (4.00-5.40); WHITE BLOOD COUNT 6.2 10^3/uL (4.0-10.0)
[2023-07-11 12:06] LABS: ALBUMIN 3.1 G/DL (3.2-5.2); ALKALINE PHOSPHATASE 82 U/L (46-116); ALT/SGPT 15 U/L (7.0-40); AST/SGOT 9 U/L (<34); BILIRUBIN,TOTAL 0.5 MG/DL (0.3-1.2); BLOOD UREA NITROGEN 28 MG/DL (9-23); CALCIUM LEVEL 8.9 MG/DL (8.3-10.6); CARBON DIOXIDE LEVEL 27 MMOL/L (20-31); CHLORIDE LEVEL 109 MMOL/L (98-107); CREATININE FOR GFR 0.68 MG/DL (0.55-1.30); GLOMERULAR FILTRATION RATE > 60.0 (>32); GLUCOSE, FASTING 96 MG/DL (74-106); SODIUM LEVEL 143 MMOL/L (136-145); TOTAL PROTEIN 6.5 G/DL (5.7-8.2)
== END ==
PROVIDERS: ATTEND Internal Medicine
DX: I50.9 Heart failure, unspecified (principal)

== ENCOUNTER → 2023-10-31 | Outpatient (REF) | payer MEDICARE, MEDICAID ==
[~2023-10-31] MED LIST changes: +GABA-1172 PO; -GABA-282 PO; +METH85CR6 TOP; -MUSCCRE9 TOP
== END ==
PROVIDERS: ATTEND Internal Medicine
DX: I50.9 Heart failure, unspecified (principal); Z53.9 Procedure and treatment not carried out, unspecified reason

== ENCOUNTER → 2023-11-30 | Outpatient (REF) | payer MEDICARE, MEDICAID ==
[2023-11-30 10:45] LABS: HEMATOCRIT 40.7 % (36.0-47.0); MEAN CORPUSCULAR HEMOGLOBIN 30.1 pg (27.0-33.0); MEAN CORPUSCULAR HGB CONC 31.9 g/dl (32.0-36.5); MEAN CORPUSCULAR VOLUME 94.2 fl (80.0-96.0); PLATELET COUNT, AUTOMATED 155 10^3/uL (150-450); RED BLOOD COUNT 4.32 10^6/uL (4.00-5.40); WHITE BLOOD COUNT 5.5 10^3/uL (4.0-10.0)
[2023-11-30 11:16] LABS: BLOOD UREA NITROGEN 19 MG/DL (9-23); CARBON DIOXIDE LEVEL 27 MMOL/L (20-31); CHLORIDE LEVEL 110 MMOL/L (98-107); CREATININE FOR GFR 0.69 MG/DL (0.55-1.30); GLOMERULAR FILTRATION RATE > 60.0 (>32); GLUCOSE, FASTING 91 MG/DL (74-106); POTASSIUM SERUM 4.2 MMOL/L (3.5-5.1); SODIUM LEVEL 142 MMOL/L (136-145)
== END ==
PROVIDERS: ATTEND Internal Medicine
DX: I50.9 Heart failure, unspecified (principal)

== ENCOUNTER → 2024-01-18 | Outpatient (REF) | payer MEDICARE, MEDICAID ==
[2024-01-18 13:56] LABS: ALBUMIN 2.9 G/DL (3.2-5.2); ALKALINE PHOSPHATASE 104 U/L (35-104); ALT/SGPT 15 U/L (7.0-40); AST/SGOT 13 U/L (<34); BILIRUBIN,DIRECT < 0.1 MG/DL (<0.4); BILIRUBIN,TOTAL 0.3 MG/DL (0.3-1.2); TOTAL PROTEIN 6.6 G/DL (5.7-8.2)
[2024-01-18 13:58] LABS: THYROID STIMULATING HORMONE 3.434 uIU/ML (0.55-4.78); VITAMIN B12 LEVEL 826 PG/ML (211-911)
== END ==
PROVIDERS: ATTEND Internal Medicine
DX: I50.9 Heart failure, unspecified (principal); E55.9 Vitamin D deficiency, unspecified; Z79.899 Other long term (current) drug therapy

== ENCOUNTER → 2024-03-26 | Outpatient (REF) | payer MEDICARE, MEDICAID ==
[2024-03-26 09:49] LABS: HEMATOCRIT 43.2 % (36.0-47.0); HEMOGLOBIN 13.6 g/dl (12.0-15.5); MEAN CORPUSCULAR HEMOGLOBIN 30.2 pg (27.0-33.0); MEAN CORPUSCULAR HGB CONC 31.5 g/dl (32.0-36.5); PLATELET COUNT, AUTOMATED 171 10^3/uL (150-450); WHITE BLOOD COUNT 6.9 10^3/uL (4.0-10.0)
[2024-03-26 10:22] LABS: BLOOD UREA NITROGEN 23 MG/DL (9-23); CALCIUM LEVEL 8.9 MG/DL (8.3-10.6); CARBON DIOXIDE LEVEL 26 MMOL/L (20-31); CHLORIDE LEVEL 110 MMOL/L (98-107); CREATININE FOR GFR 0.77 MG/DL (0.55-1.30); GLOMERULAR FILTRATION RATE > 60.0 (>32); GLUCOSE, FASTING 82 MG/DL (74-106); POTASSIUM SERUM 4.5 MMOL/L (3.5-5.1); SODIUM LEVEL 146 MMOL/L (136-145)
== END ==
PROVIDERS: ATTEND Internal Medicine
DX: I50.9 Heart failure, unspecified (principal)

== ENCOUNTER → 2024-04-25 | Outpatient (REF) | payer MEDICARE, MEDICAID ==
[2024-04-25 09:06] LABS: ALBUMIN 3.1 G/DL (3.2-5.2); ALKALINE PHOSPHATASE 88 U/L (35-104); ALT/SGPT 15 U/L (7.0-40); AST/SGOT 13 U/L (<34); BILIRUBIN,DIRECT < 0.1 MG/DL (<0.4); BILIRUBIN,TOTAL 0.4 MG/DL (0.3-1.2); TOTAL PROTEIN 6.7 G/DL (5.7-8.2)
[2024-04-25 09:09] LABS: THYROID STIMULATING HORMONE 2.542 uIU/ML (0.55-4.78); VITAMIN B12 LEVEL 745 PG/ML (211-911)
== END ==
PROVIDERS: ATTEND Internal Medicine
DX: I51.9 Heart disease, unspecified (principal); Z79.899 Other long term (current) drug therapy

== ENCOUNTER → 2024-12-03 | Outpatient (REF) | payer MEDICARE, MEDICAID ==
[2024-12-03 10:56] LABS: PLATELET COUNT, AUTOMATED 212 10^3/uL (150-450)
[2024-12-03 11:21] LABS: CALCIUM LEVEL 8.6 MG/DL (8.3-10.6); CARBON DIOXIDE LEVEL 26.0 MMOL/L (20-31); CHLORIDE LEVEL 107.0 MMOL/L (98-107); CREATININE FOR GFR 0.79 MG/DL (0.55-1.30); GLOMERULAR FILTRATION RATE 74.6 (>32); POTASSIUM SERUM 4.2 MMOL/L (3.5-5.1); SODIUM LEVEL 143.0 MMOL/L (136-145)
== END ==
PROVIDERS: ATTEND Internal Medicine
DX: I50.9 Heart failure, unspecified (principal)

== ENCOUNTER → 2025-01-23 | Outpatient (REF) | payer MEDICARE, MEDICAID ==
[2025-01-23 13:59] LABS: ALT/SGPT 14.0 U/L (7.0-40); AST/SGOT 17.0 U/L (<34)
[2025-01-23 14:00] LABS: VITAMIN B12 LEVEL 422.0 PG/ML (211-911)
== END ==
PROVIDERS: ATTEND Internal Medicine
DX: I50.9 Heart failure, unspecified (principal); E55.9 Vitamin D deficiency, unspecified

== ENCOUNTER → 2025-02-01 | Outpatient (REF) | payer MEDICARE, MEDICAID | PROVIDERS: ATTEND Internal Medicine | DX: R05.9 Cough, unspecified (principal) ==